=== PATIENT | female | born 1945 | race Caucasian/White ===

== ENCOUNTER → 2016-07-14 | Outpatient (REF) | payer MEDICARE ==
[2016-07-14 11:51] LABS: ALBUMIN 3.8 GM/DL (3.2-5.2); ALBUMIN/GLOBULIN RATIO 0.88 (1.00-1.93); ALKALINE PHOSPHATASE 86 U/L (45-117); ALT/SGPT 33 U/L (12-78); ANION GAP 10 MEQ/L (8-16); AST/SGOT 28 U/L (15-37); BILIRUBIN,TOTAL 0.5 MG/DL (0.2-1.0); BLOOD UREA NITROGEN 16 MG/DL (7-18); CARBON DIOXIDE LEVEL 29 MEQ/L (21-32); CHLORIDE LEVEL 100 MEQ/L (98-107); CREATININE FOR GFR 0.86 MG/DL (0.55-1.02); GLOMERULAR FILTRATION RATE > 60.0 (>45); GLUCOSE, FASTING 130 MG/DL (80-110); POTASSIUM SERUM 4.2 MEQ/L (3.5-5.1); SODIUM LEVEL 139 MEQ/L (136-145); TOTAL PROTEIN 8.1 GM/DL (6.4-8.2)
== END | disposition home or self-care (01) ==
LOC: M SFHCPLAZ 08:43
PROVIDERS: ATTEND Nurse Practitioner Family
DX: E11.9 Type 2 diabetes mellitus without complications (principal); E55.9 Vitamin D deficiency, unspecified

== ENCOUNTER → 2016-10-14 | Outpatient (REF) | payer MEDICARE ==
[2016-10-14 12:15] LABS: ALBUMIN 3.6 GM/DL (3.2-5.2); ALBUMIN/GLOBULIN RATIO 0.95 (1.00-1.93); ALKALINE PHOSPHATASE 84 U/L (45-117); ALT/SGPT 26 U/L (12-78); ANION GAP 10 MEQ/L (8-16); AST/SGOT 21 U/L (15-37); BILIRUBIN,TOTAL 0.4 MG/DL (0.2-1.0); BLOOD UREA NITROGEN 16 MG/DL (7-18); CALCIUM LEVEL 8.7 MG/DL (8.8-10.2); CARBON DIOXIDE LEVEL 26 MEQ/L (21-32); CHLORIDE LEVEL 102 MEQ/L (98-107); CHOLESTEROL LEVEL 190 MG/DL (<200); CREATININE FOR GFR 0.88 MG/DL (0.55-1.02); GLOMERULAR FILTRATION RATE > 60.0 (>39); GLUCOSE, FASTING 150 MG/DL (83-110); POTASSIUM SERUM 4.2 MEQ/L (3.5-5.1); SODIUM LEVEL 138 MEQ/L (136-145); TOTAL PROTEIN 7.4 GM/DL (6.4-8.2); TRIGLYCERIDES LEVEL 253 MG/DL (<150)
== END ==
LOC: M SFHCPLAZ 08:32
PROVIDERS: ATTEND Nurse Practitioner Family
DX: E11.9 Type 2 diabetes mellitus without complications (principal); E78.5 Hyperlipidemia, unspecified; E55.9 Vitamin D deficiency, unspecified

== ENCOUNTER → 2016-11-08 | Outpatient (REF) | payer MEDICARE ==
[2016-11-08 17:52] LABS: BASO % 0.5 % (0.0-1.0); EOS # 0.1 K/mm3 (0.0-0.50); EOS % 1.8 % (0.0-3.0); LARGE UNSTAINED CELL # 0.1 K/mm3 (0.0-0.4); LARGE UNSTAINED CELL % 1.4 % (0.0-4.0); LYMPH # 2.3 K/mm3 (1.5-4.5); LYMPH % 29.6 % (24.0-44.0); MEAN CORPUSCULAR HEMOGLOBIN 29.3 pg (27.0-33.0); MEAN CORPUSCULAR HGB CONC 32.7 g/dl (32.0-36.5); MEAN CORPUSCULAR VOLUME 89.7 fl (80.0-96.0); MONO # 0.5 K/mm3 (0.0-0.8); MONO % 6.7 % (0.0-5.0); NEUTROPHILS # 4.6 K/mm3 (1.8-7.7); NEUTROPHILS % 60.1 % (36.0-66.0); PLATELET COUNT, AUTOMATED 185 k/mm3 (150-450); RED CELL DISTRIBUTION WIDTH 15.6 % (11.5-14.5); WHITE BLOOD COUNT 7.7 K/mm3 (4.0-10.0)
== END ==
LOC: M SFHCPLAZ 14:54
PROVIDERS: ATTEND Nurse Practitioner Family
DX: R06.09 Other forms of dyspnea (principal)

== ENCOUNTER → 2016-12-15 | Outpatient (CLI) | payer MEDICARE ==
--- NOTE | 2016-12-15 16:35 | REP ---
Chest x-ray: Two views: History: Dyspnea. Comparison chest x-ray: 07/26/2012. Findings: The lungs are symmetrically aerated and free of infiltrate. There are scattered granulomatous calcifications bilaterally unchanged. The heart is not enlarged. Pulmonary vasculature is not increased. No bony destructive lesion is seen. Impression: Old granulomatous changes. Otherwise no acute disease. Signed by Jalen Muhammad MD 12/15/2016 05:00 P
== END ==
LOC: M RAD 14:53
PROVIDERS: ATTEND Nurse Practitioner Family
DX: R06.09 Other forms of dyspnea (principal)

== ENCOUNTER → 2016-12-27 | Outpatient (RCR) | payer OTHER | LOC: M PT 12-13 15:00 | PROVIDERS: ATTEND Physician Assistant Surgical | DX: Z51.89 Encounter for other specified aftercare (principal); M75.41 Impingement syndrome of right shoulder ==

== ENCOUNTER → 2016-12-31 | Outpatient (REF) | payer MEDICARE ==
[2016-12-31 18:21] LABS: BASO % 0.3 % (0.0-1.0); EOS # 0.2 K/mm3 (0.0-0.50); LARGE UNSTAINED CELL # 0.2 K/mm3 (0.0-0.4); LARGE UNSTAINED CELL % 1.5 % (0.0-4.0); LYMPH % 16.4 % (24.0-44.0); MEAN CORPUSCULAR HEMOGLOBIN 28.5 pg (27.0-33.0); MEAN CORPUSCULAR HGB CONC 32.4 g/dl (32.0-36.5); MEAN CORPUSCULAR VOLUME 87.9 fl (80.0-96.0); MONO # 0.6 K/mm3 (0.0-0.8); MONO % 4.8 % (0.0-5.0); NEUTROPHILS # 8.5 K/mm3 (1.8-7.7); NEUTROPHILS % 74.9 % (36.0-66.0); PLATELET COUNT, AUTOMATED 301 k/mm3 (150-450); RED CELL DISTRIBUTION WIDTH 15.8 % (11.5-14.5); WHITE BLOOD COUNT 11.4 K/mm3 (4.0-10.0)
[2016-12-31 18:53] LABS: ALBUMIN 3.1 GM/DL (3.2-5.2); ALBUMIN/GLOBULIN RATIO 0.66 (1.00-1.93); ALKALINE PHOSPHATASE 101 U/L (45-117); ALT/SGPT 21 U/L (12-78); ANION GAP 11 MEQ/L (8-16); AST/SGOT 14 U/L (15-37); BILIRUBIN,TOTAL 0.4 MG/DL (0.2-1.0); BLOOD UREA NITROGEN 11 MG/DL (7-18); CALCIUM LEVEL 9.2 MG/DL (8.8-10.2); CARBON DIOXIDE LEVEL 30 MEQ/L (21-32); CHLORIDE LEVEL 98 MEQ/L (98-107); CREATININE FOR GFR 0.71 MG/DL (0.55-1.02); GLOMERULAR FILTRATION RATE > 60.0 (>39); GLUCOSE, FASTING 131 MG/DL (83-110); SODIUM LEVEL 139 MEQ/L (136-145); TOTAL PROTEIN 7.8 GM/DL (6.4-8.2)
== END ==
LOC: M SFHCPLAZ 15:17
PROVIDERS: ATTEND Nurse Practitioner Family
DX: R19.7 Diarrhea, unspecified (principal)

== ENCOUNTER → 2017-01-05 | Outpatient (CLI) | payer MEDICARE ==
--- NOTE | 2017-01-05 12:04 | PFTRPT ---
Tech: Kayla SOLIS RRT Age: 71 Sex: Female Race: Height: 65.00 Inches Weight: 225.00 Lbs BSA: 2.08 Diagnosis: R06.09 PULMONARY FUNCTION REPORT ORDERING PROVIDER: SIN Carlson DATE OF SERVICE: 01/05/17 SPIROMETRY: Pre and post bronchodilator study of excellent technical quality. The forced vital capacity is reduced. The FEV1 is in proportion. The obstructive index is, therefore, normal. FLOW VOLUME LOOP: The expiratory limb of the flow volume loop does suggest flow rate limitation. No significant bronchodilator response is identified. LUNG VOLUMES: The total lung capacity is mildly reduced. The residual volume suggests concomitant significant air trapping. DIFFUSION CAPACITY: The diffusion capacity, although reduced, is appropriate for alveolar volume. HEMOGLOBIN: No hemoglobin is available for correction. AIRWAY MECHANICS: Airways resistance and conductance are normal. IMPRESSION: Mild restrictive ventilatory impairment with concomitant underlying air trapping and small airways dysfunction. No significant bronchodilator response. Decrease in the absolute diffusion capacity. Please correlate clinically. MTDD
== END ==
LOC: M CARPUL 09:57
PROVIDERS: ATTEND Nurse Practitioner Family
DX: R06.09 Other forms of dyspnea (principal)

== ENCOUNTER 2017-01-26 13:36 | Outpatient (RCR) | payer OTHER | END 2017-01-27 | LOC: M PT 13:36 | PROVIDERS: ATTEND Physician Assistant Surgical | DX: Z51.89 Encounter for other specified aftercare (principal); M75.41 Impingement syndrome of right shoulder ==

== ENCOUNTER → 2017-02-10 | Outpatient (REF) | payer MEDICARE ==
[2017-02-10 20:11] LABS: ALBUMIN 3.6 GM/DL (3.2-5.2); ALBUMIN/GLOBULIN RATIO 0.88 (1.00-1.93); ALKALINE PHOSPHATASE 78 U/L (45-117); ALT/SGPT 29 U/L (12-78); ANION GAP 9 MEQ/L (8-16); AST/SGOT 25 U/L (15-37); BILIRUBIN,TOTAL 0.3 MG/DL (0.2-1.0); BLOOD UREA NITROGEN 16 MG/DL (7-18); CALCIUM LEVEL 8.6 MG/DL (8.8-10.2); CARBON DIOXIDE LEVEL 29 MEQ/L (21-32); CHLORIDE LEVEL 103 MEQ/L (98-107); CREATININE FOR GFR 0.89 MG/DL (0.55-1.02); GLOMERULAR FILTRATION RATE > 60.0 (>39); GLUCOSE, FASTING 129 MG/DL (83-110); POTASSIUM SERUM 4.4 MEQ/L (3.5-5.1); SODIUM LEVEL 141 MEQ/L (136-145); TOTAL PROTEIN 7.7 GM/DL (6.4-8.2)
== END ==
LOC: M SFHCPLAZ 14:31
PROVIDERS: ATTEND Nurse Practitioner Family
DX: E11.9 Type 2 diabetes mellitus without complications (principal); E55.9 Vitamin D deficiency, unspecified; E78.4 Other hyperlipidemia

== ENCOUNTER → 2017-04-15 | Outpatient (CLI) | payer MEDICARE ==
--- NOTE | 2017-04-15 14:19 | REPMRS ---
Patient History The patient states she has not had a clinical breast exam in over a year. Patient is postmenopausal and has history of colorectal cancer at age 62. Family history of colorectal cancer in mother, breast cancer in maternal cousin at age 50 or over, and prostate cancer in brother at age 50 or over. Digital Woman Screen Mammo: April 15, 2017 - Exam #: [id number] Bilateral CC and MLO view(s) were taken. Technologist: Arlin Nicholson, Technologist Prior study comparison: February 28, 2015, digital woman screen mammo performed at [facility] [place] [facility]. September 16, 2011, digital woman screen mammo performed at [facility] to [facility]. FINDINGS: The breast tissue is heterogeneously dense. This may lower the sensitivity of mammography. There has been no change in the appearance of the mammogram from the prior studies. There is a moderate amount of residual fibroglandular tissue which is fairly symmetric. There is no interval development of dominant mass, areas of architectural distortion, or clustered microcalcification typical of malignancy. ASSESSMENT: BI-RADS/ACR category 1 mammogram. Negative. Recommendation Routine screening mammogram in 1 year (for women over age 40). This mammogram was interpreted with the aid of an FDA-approved computer-aided dectection system. Electronically Signed By: Isaac Ledezma MD 04/15/17 1239
--- NOTE | 2017-04-19 09:34 | DEXA ---
AP SPINE L1 - L4 0.896 -2.4 -0.7 LT FEMUR TOTAL 0.927 -0.6 0.8 RT FEMUR TOTAL 0.893 -0.9 0.6 TOTAL BODY TOTAL OTHER COMMENTS: There is low bone density of the spine and hips. The decreased density of the spine does not represent a significant change. The decreased density of the left hip does represent a significant change. The decreased density of the right hip does represent a significant change. The density of the spine has decreased 2.9% since the initial exam on 12/2011. The spine density has decreased 1.4% since the most recent exam on 02/2015. The density of the left hip has decreased 4.6% since the initial exam on 12/2011. The density of the left hip has decreased 3.6% since the most recent exam on 2014. The density of the right hip has decreased 3.8% since the initial exam on 2011. The density of the right hip has decreased 3.5% since the most recent exam on . FOLLOW-UP: Recommendation for the next bone density exam: 2 years. MATTHEW
== END ==
LOC: M WHC 08:04
PROVIDERS: ATTEND Nurse Practitioner Family
DX: Z12.31 Encounter for screening mammogram for malignant neoplasm of breast (principal); R92.8 Other abnormal and inconclusive findings on diagnostic imaging of breast; M81.0 Age-related osteoporosis without current pathological fracture; Z78.0 Asymptomatic menopausal state; Z80.0 Family history of malignant neoplasm of digestive organs
CPT/HCPCS: 77080; G0202

== ENCOUNTER → 2017-06-06 | Outpatient (REF) | payer MEDICARE ==
[2017-06-06 13:04] LABS: ALBUMIN 3.7 GM/DL (3.2-5.2); ALBUMIN/GLOBULIN RATIO 0.86 (1.00-1.93); ALKALINE PHOSPHATASE 82 U/L (45-117); ALT/SGPT 30 U/L (12-78); ANION GAP 7 MEQ/L (8-16); AST/SGOT 30 U/L (7-37); BILIRUBIN,TOTAL 0.3 MG/DL (0.2-1.0); BLOOD UREA NITROGEN 20 MG/DL (7-18); CALCIUM LEVEL 8.9 MG/DL (8.8-10.2); CARBON DIOXIDE LEVEL 29 MEQ/L (21-32); CHLORIDE LEVEL 101 MEQ/L (98-107); CREATININE FOR GFR 0.87 MG/DL (0.55-1.02); GLOMERULAR FILTRATION RATE > 60.0 (>39); GLUCOSE, FASTING 143 MG/DL (83-110); POTASSIUM SERUM 4.2 MEQ/L (3.5-5.1); SODIUM LEVEL 137 MEQ/L (136-145)
[2017-06-06 13:54] LABS: ESTIMATED AVERAGE GLUCOSE 166 MG/DL (60-110); HEMOGLOBIN A1c 7.4 %
== END ==
LOC: M SFHCPLAZ 08:26
DX: E11.9 Type 2 diabetes mellitus without complications (principal)
CPT/HCPCS: 80053

== ENCOUNTER → 2017-06-13 | Outpatient (REF) | payer MEDICARE ==
[2017-06-13 15:50] LABS: APPEARANCE, URINE HAZY (CLEAR); BACTERIA, URINE AUTO 1+ (NEGATIVE); BILIRUBIN, URINE AUTO NEGATIVE (NEGATIVE); BLOOD, URINE BLOOD NEGATIVE (NEGATIVE); COLOR, URINE YELLOW (YELLOW); GLUCOSE, URINE (UA) AUTO NEGATIVE (NEGATIVE); KETONE, URINE AUTO NEGATIVE (NEGATIVE); LEUKOCYTE ESTERASE, URINE AUTO 1+ (NEGATIVE); NITRITE, URINE AUTO NEGATIVE (NEGATIVE); PROTEIN, URINE AUTO NEGATIVE (NEGATIVE); RBC, URINE AUTO 3 /HPF (0-3); SQUAMOUS EPITHELIAL CELL UR AU 3 /HPF (0-6); UROBILINOGEN, URINE AUTO 0.2 mg/dL (0.0-2.0); WBC, URINE AUTO 8 /HPF (0-3)
== END ==
LOC: M SFHCPLAZ 11:58
DX: R35.0 Frequency of micturition (principal)
CPT/HCPCS: 81001

== ENCOUNTER → 2017-09-26 | Outpatient (REF) | payer MEDICARE ==
[2017-09-26 12:23] LABS: ESTIMATED AVERAGE GLUCOSE 169 MG/DL (60-110); HEMOGLOBIN A1c 7.5 %
[2017-09-26 12:47] LABS: TOTAL 25(OH) VITAMIN D 28.2 NG/ML (30.0-100.0)
[2017-09-26 12:49] LABS: ALBUMIN 3.3 GM/DL (3.2-5.2); ALBUMIN/GLOBULIN RATIO 0.75 (1.00-1.93); ALKALINE PHOSPHATASE 85 U/L (45-117); ALT/SGPT 31 U/L (12-78); ANION GAP 7 MEQ/L (8-16); AST/SGOT 32 U/L (7-37); BILIRUBIN,TOTAL 0.3 MG/DL (0.2-1.0); BLOOD UREA NITROGEN 14 MG/DL (7-18); CALCIUM LEVEL 9.1 MG/DL (8.8-10.2); CARBON DIOXIDE LEVEL 28 MEQ/L (21-32); CHLORIDE LEVEL 106 MEQ/L (98-107); CREATININE FOR GFR 0.86 MG/DL (0.55-1.30); GLOMERULAR FILTRATION RATE > 60.0 (>39); GLUCOSE, FASTING 135 MG/DL (70-100); POTASSIUM SERUM 4.3 MEQ/L (3.5-5.1); SODIUM LEVEL 141 MEQ/L (136-145); TOTAL PROTEIN 7.7 GM/DL (6.4-8.2)
== END ==
LOC: M SFHCPLAZ 10:29
DX: E11.9 Type 2 diabetes mellitus without complications (principal); E55.9 Vitamin D deficiency, unspecified
CPT/HCPCS: 80053

== ENCOUNTER → 2018-01-06 | Outpatient (REF) | payer MEDICARE ==
[2018-01-06 11:28] LABS: ALBUMIN 3.7 GM/DL (3.2-5.2); ALBUMIN/GLOBULIN RATIO 0.82 (1.00-1.93); ALKALINE PHOSPHATASE 80 U/L (45-117); ALT/SGPT 65 U/L (12-78); ANION GAP 8 MEQ/L (8-16); AST/SGOT 61 U/L (7-37); BILIRUBIN,TOTAL 0.4 MG/DL (0.2-1.0); BLOOD UREA NITROGEN 16 MG/DL (7-18); CARBON DIOXIDE LEVEL 30 MEQ/L (21-32); CHLORIDE LEVEL 101 MEQ/L (98-107); CHOLESTEROL LEVEL 216 MG/DL (<200); CHOLESTEROL RISK RATIO 4.075 (<5); CREATININE FOR GFR 0.76 MG/DL (0.55-1.30); GLOMERULAR FILTRATION RATE > 60.0 (>39); GLUCOSE, FASTING 123 MG/DL (70-100); HDL CHOLESTEROL 53 MG/DL (>40); LDL CHOLESTEROL 139.6 MG/DL (<100); NON-HDL-C 163 MG/DL; POTASSIUM SERUM 4.3 MEQ/L (3.5-5.1); SODIUM LEVEL 139 MEQ/L (136-145); TOTAL PROTEIN 8.2 GM/DL (6.4-8.2); TRIGLYCERIDES LEVEL 117 MG/DL (<150)
[2018-01-06 11:30] LABS: TOTAL 25(OH) VITAMIN D 27.4 NG/ML (30.0-100.0)
[2018-01-06 12:19] LABS: ESTIMATED AVERAGE GLUCOSE 177 MG/DL (60-110); HEMOGLOBIN A1c 7.8 %
== END ==
LOC: M SFHCPLAZ 09:24
DX: E78.5 Hyperlipidemia, unspecified (principal); E11.9 Type 2 diabetes mellitus without complications; E55.9 Vitamin D deficiency, unspecified; Z68.36 Body mass index [BMI] 36.0-36.9, adult
CPT/HCPCS: 80053

== ENCOUNTER → 2018-01-13 | Outpatient (REF) | payer MEDICARE ==
[2018-01-13 16:05] LABS: MALB URINE SIEMENS 8.6 MG/L; MAU/CREAT RATIO 7.6 MCG/MG (0.0-30.0)
== END ==
LOC: M SFHCPLAZ 15:13
DX: E11.9 Type 2 diabetes mellitus without complications (principal)
CPT/HCPCS: 82043

== ENCOUNTER → 2018-05-02 | Outpatient (REF) | payer MEDICARE ==
[2018-05-02 11:19] LABS: ALBUMIN 3.6 GM/DL (3.2-5.2); ALBUMIN/GLOBULIN RATIO 0.84 (1.00-1.93); ALKALINE PHOSPHATASE 86 U/L (45-117); ALT/SGPT 68 U/L (12-78); ANION GAP 7 MEQ/L (8-16); AST/SGOT 63 U/L (7-37); BILIRUBIN,TOTAL 0.4 MG/DL (0.2-1.0); BLOOD UREA NITROGEN 18 MG/DL (7-18); CALCIUM LEVEL 8.7 MG/DL (8.8-10.2); CARBON DIOXIDE LEVEL 31 MEQ/L (21-32); CHLORIDE LEVEL 102 MEQ/L (98-107); CREATININE FOR GFR 0.77 MG/DL (0.55-1.30); GLOMERULAR FILTRATION RATE > 60.0 (>39); GLUCOSE, FASTING 141 MG/DL (70-100); POTASSIUM SERUM 4.2 MEQ/L (3.5-5.1); SODIUM LEVEL 140 MEQ/L (136-145); TOTAL PROTEIN 7.9 GM/DL (6.4-8.2)
[2018-05-02 11:25] LABS: TOTAL 25(OH) VITAMIN D 36.1 NG/ML (30.0-100.0)
[2018-05-02 11:57] LABS: ESTIMATED AVERAGE GLUCOSE 203 MG/DL (60-110); HEMOGLOBIN A1c 8.7 %
== END ==
LOC: M SFHCPLAZ 09:05
DX: E11.9 Type 2 diabetes mellitus without complications (principal); E55.9 Vitamin D deficiency, unspecified
CPT/HCPCS: 80053

== ENCOUNTER → 2018-08-30 | Outpatient (CLI) | payer MEDICARE ==
--- NOTE | 2018-08-30 13:36 | REP ---
LOW-DOSE NONCONTRAST CHEST CT: HISTORY: Lung cancer screening. Tobacco use. Comparison screening CT study March 31, 2017. There is a comparison CT study also available from February 02, 2008. CT FINDINGS: There is bilateral calcific pleural plaquing consistent with previous asbestos exposure again noted. This is unchanged. There is no evidence of pleural effusion or diffuse interstitial fibrosis change. There are minimal pleuroparenchymal fibrotic changes in the lung bases bilaterally. No pulmonary nodule or mass lesion is observed. There is calcification in a right paratracheal lymph node and in the precarinal lymph nodes again noted unchanged. IMPRESSION: Lung RADS category 2 benign findings. Annual screening evaluation suggested. Electronically Signed by Jalen Muhammad MD 08/30/2018 02:55 P
== END ==
LOC: M RAD 10:58
PROVIDERS: ATTEND Nurse Practitioner Family
DX: Z87.891 Personal history of nicotine dependence (principal)

== ENCOUNTER → 2018-10-18 | Outpatient (REF) | payer MEDICARE ==
[2018-10-18 12:27] LABS: HEMATOCRIT 36.5 % (36.0-47.0); HEMOGLOBIN 11.2 g/dl (12.0-15.5); MEAN CORPUSCULAR HEMOGLOBIN 26.5 pg (27.0-33.0); MEAN CORPUSCULAR HGB CONC 30.7 g/dl (32.0-36.5); MEAN CORPUSCULAR VOLUME 86.5 fl (80.0-96.0); PLATELET COUNT, AUTOMATED 136 10^3/uL (150-450); RED BLOOD COUNT 4.22 10^6/uL (4.00-5.40); WHITE BLOOD COUNT 5.1 10^3/uL (4.0-10.0)
[2018-10-18 12:45] LABS: ALBUMIN 3.7 GM/DL (3.2-5.2); ALT/SGPT 58 U/L (12-78); BILIRUBIN,TOTAL 0.5 MG/DL (0.2-1.0); BLOOD UREA NITROGEN 13 MG/DL (7-18); CALCIUM LEVEL 9.4 MG/DL (8.8-10.2); CARBON DIOXIDE LEVEL 26 MEQ/L (21-32); CHLORIDE LEVEL 102 MEQ/L (98-107); CHOLESTEROL LEVEL 161 MG/DL (<200); CHOLESTEROL RISK RATIO 4.351 (<5); CREATININE FOR GFR 0.85 MG/DL (0.55-1.30); GLOMERULAR FILTRATION RATE > 60.0 (>39); GLUCOSE, FASTING 174 MG/DL (70-100); HDL CHOLESTEROL 37 MG/DL (>40); LDL CHOLESTEROL 86 MG/DL (<100); NON-HDL-C 124 MG/DL; POTASSIUM SERUM 4.3 MEQ/L (3.5-5.1); SODIUM LEVEL 137 MEQ/L (136-145); TOTAL PROTEIN 7.8 GM/DL (6.4-8.2); TRIGLYCERIDES LEVEL 188 MG/DL (<150)
[2018-10-18 14:16] LABS: HEMOGLOBIN A1c 7.8 %
== END ==
LOC: M SFHCPLAZ 08:45
PROVIDERS: ATTEND Nurse Practitioner Family
DX: Z85.048 Personal history of other malignant neoplasm of rectum, rectosigmoid junction, and anus (principal); R06.02 Shortness of breath; E11.9 Type 2 diabetes mellitus without complications; E78.5 Hyperlipidemia, unspecified

== ENCOUNTER 2018-10-30 06:41 | Day surgery (SDC) | payer MEDICARE ==
[~2018-10-30] VITALS: Ht 167.6 cm; Wt 102.1 kg
[~2018-10-30 06:41] MED LIST: ANOR1AER IN; ASPI81TA85 PO; ATOR40TA75; METF500T13; NS 1,000 ML IV ONE; SERT-155
[2018-10-30] MEDS ORDERED: PROPOFOL 200 MG/20 ML VIAL As Ordered ONE (07:04)
[2018-10-30] MEDS ORDERED: LIDOCAINE 2% INJ 100 MG/5 ML SDV (FOR ANES.) As Ordered ONE (07:04)
[2018-10-30] MEDS ORDERED: fentaNYL 100 MCG/2 ML INJECTION (J3010) As Ordered ONE (07:08)
--- NOTE | 2018-10-30 07:48 | ROOR ---
Patient Name: Anne Farooq Procedure Date: 10/30/2018 7:32 AM Date of : 1945 Age: 73 Room: [facility] Gender: Female Note Status: Finalized Procedure: Upper Endoscopy + Biopsies Indications: Heartburn, Exclusion of Saldana's esophagus Providers: Ubaldo Camilo MD Referring MD: Aviva Tineo NP Requesting Provider: Medicines: Monitored Anesthesia Care Complications: No immediate complications. Procedure: Pre-Anesthesia Assessment: - The heart rate, respiratory rate, oxygen saturations, blood pressure, adequacy of pulmonary ventilation, and response to care were monitored throughout the procedure. The Endoscope was introduced through the mouth, and advanced to the second part of duodenum. The upper GI endoscopy was accomplished without difficulty. The patient tolerated the procedure well. Findings: The Z-line was irregular and was found 45 cm from the incisors. Multiple biopsies were obtained with cold forceps for evaluation to rule out Saldana's Esophagus randomly at the gastroesophageal junction. A small hiatal hernia was present. No other significant abnormalities were identified in a careful examination of the stomach. The exam of the duodenum was otherwise normal. Impression: - Z-line irregular, 45 cm from the incisors. - Small hiatal hernia. - Multiple biopsies were obtained at the gastroesophageal junction. - The examination was otherwise normal. Recommendation: - Patient has a contact number available for emergencies. The signs and symptoms of potential delayed complications were discussed with the patient. Return to normal activities tomorrow. Written discharge instructions were provided to the patient. - High fiber diet. - Discharge patient to home. - Follow an antireflux regimen. - Continue present medications. - Await pathology results. - Telephone GI clinic for pathology results in 1 week. - The findings and recommendations were discussed with the patient's family. Ubaldo Camilo MD Ubaldo Camilo MD 10/30/2018 7:48:34 AM Electronically signed by Ubaldo Camilo MD Number of Addenda: 0 Note Initiated On: 10/30/2018 7:32 AM Estimated Blood Loss: Estimated blood loss: none.
--- NOTE | 2018-10-30 08:14 | ROOR ---
Patient Name: Anne Farooq Procedure Date: 10/30/2018 7:33 AM Date of : 1945 Age: 73 Room: [facility] Gender: Female Note Status: Finalized Procedure: Total Colonoscopy to Cecum + Cold Snare Polypectomy + Hemoclips Indications: High risk colon cancer surveillance: Personal history of colon cancer Providers: Ubaldo Camilo MD Referring MD: Aviva Tineo NP Requesting Provider: Medicines: Monitored Anesthesia Care Complications: No immediate complications. Procedure: Pre-Anesthesia Assessment: - The heart rate, respiratory rate, oxygen saturations, blood pressure, adequacy of pulmonary ventilation, and response to care were monitored throughout the procedure. The Colonoscope was introduced through the anus and advanced to the cecum, identified by appendiceal orifice and ileocecal valve. The colonoscopy was performed without difficulty. The patient tolerated the procedure well. The quality of the bowel preparation was excellent. Findings: The perianal and digital rectal examinations were normal. Non-bleeding internal hemorrhoids were found during retroflexion. The hemorrhoids were medium-sized and Grade I (internal hemorrhoids that do not prolapse). The mucosa vascular pattern in the rectum was diffusely increased. Multiple sessile polyps were found in the distal transverse colon. The polyps were small in size. These polyps were removed with a cold snare. Resection and retrieval were complete. To prevent bleeding after the polypectomy, three hemostatic clips were successfully placed (MR conditional). There was no bleeding at the end of the procedure. The exam was otherwise without abnormality on direct and retroflexion views. Impression: - Non-bleeding internal hemorrhoids. - Increased mucosa vascular pattern in the rectum. - Multiple small polyps in the distal transverse colon, removed with a cold snare. Resected and retrieved. Clips (MR conditional) were placed. - The examination was otherwise normal on direct and retroflexion views. - The exam was otherwise normal to the cecum. Recommendation: - Patient has a contact number available for emergencies. The signs and symptoms of potential delayed complications were discussed with the patient. Return to normal activities tomorrow. Written discharge instructions were provided to the patient. - High fiber diet. - Discharge patient to home. - Continue present medications. - Await pathology results. - Telephone GI clinic for pathology results in 1 week. - Repeat colonoscopy for surveillance based on pathology results. - Return to referring physician. - Check Portal Online for Path Results.([email or web address]) - The findings and recommendations were discussed with the patient's family. Ubaldo Camilo MD Ubaldo Camilo MD 10/30/2018 8:14:09 AM Electronically signed by Ubaldo Camilo MD Number of Addenda: 0 Note Initiated On: 10/30/2018 7:33 AM Estimated Blood Loss: Estimated blood loss: none.
[2018-10-30 08:40] VITALS: BP 138/62
== END 2018-10-30 08:51 | disposition home or self-care (01) ==
LOC: M OPP 06:41
PROVIDERS: ATTEND Internal Medicine Gastroenterology
DX: D12.3 Benign neoplasm of transverse colon (principal); K64.0 First degree hemorrhoids; K22.8 Other specified diseases of esophagus; K44.9 Diaphragmatic hernia without obstruction or gangrene; R12 Heartburn; Z86.010 Personal history of colon polyps
CPT/HCPCS: 43239; 45385; 88305; J3010

== ENCOUNTER → 2019-01-16 | Outpatient (CLI) | payer MEDICARE ==
[~2019-01-16] MED LIST changes: -NS 1,000 ML IV ONE
--- NOTE | 2019-01-16 12:03 | REPMRS ---
Patient History The patient states she has not had a clinical breast exam in over a year. Patient has history of colorectal cancer at age 62 and had previous chemotherapy at age 62. Family history of prostate cancer at age 50 or over in brother, colorectal cancer in mother. No Hormone Replacement Therapy 3D TOMOSYNTHESIS WAS PERFORMED. The [facility] lifetime risk for breast cancer is 3.7%. Digital Woman Screen Mammo: January 16, 2019 - Exam #: [id number] Bilateral CC and MLO view(s) were taken. Technologist: Magi Astorga, Technologist Prior study comparison: April 15, 2017, digital woman screen mammo performed at [facility]. February 28, 2015, digital woman screen mammo performed at [facility] [employer] [facility]. FINDINGS: The breast tissue is heterogeneously dense. This may lower the sensitivity of mammography. There has been no change in the appearance of the mammogram from the prior studies. There is a moderate amount of residual fibroglandular tissue which is fairly symmetric. There is no interval development of dominant mass, areas of architectural distortion, or clustered microcalcification typical of malignancy. Assessment: BI-RADS/ACR category 1 mammogram. Negative Mammogram. Recommendation Routine screening mammogram in 1 year (for women over age 40). This mammogram was interpreted with the aid of an FDA-approved computer-aided dectection system. Electronically Signed By: Isaac Ledezma MD 01/16/19 1266
== END ==
LOC: M WHC 10:02
PROVIDERS: ATTEND Nurse Practitioner Family
DX: Z12.31 Encounter for screening mammogram for malignant neoplasm of breast (principal); Z85.038 Personal history of other malignant neoplasm of large intestine; Z92.21 Personal history of antineoplastic chemotherapy; Z80.0 Family history of malignant neoplasm of digestive organs

== ENCOUNTER → 2019-01-23 | Outpatient (REF) | payer MEDICARE ==
[~2019-01-23] MED LIST changes: +ALL10TAB29 PO; -ANOR1AER IN; +ANOR1AER INH; -ATOR40TA75; +ATOR40TA75 PO; +B-12100010 PO; +LOPE1CAP5 PO; +METF10004 PO; -METF500T13; +METF500T13 PO; +NYST1POW9 TOP; +OMEP-221 PO; +PRED50TA PO; -SERT-155; +SERT50TA29; +TYLE650T35 PO; +VOLT1GEL15 TOP
[2019-01-23 10:50] LABS: ALBUMIN 3.5 GM/DL (3.2-5.2); ALT/SGPT 37 U/L (12-78); BILIRUBIN,TOTAL 0.5 MG/DL (0.2-1.0); BLOOD UREA NITROGEN 10 MG/DL (7-18); CALCIUM LEVEL 9.1 MG/DL (8.8-10.2); CARBON DIOXIDE LEVEL 26 MEQ/L (21-32); CHLORIDE LEVEL 105 MEQ/L (98-107); CREATININE FOR GFR 0.82 MG/DL (0.55-1.30); GLOMERULAR FILTRATION RATE > 60.0 (>39); GLUCOSE, FASTING 146 MG/DL (70-100); POTASSIUM SERUM 4.4 MEQ/L (3.5-5.1); SODIUM LEVEL 139 MEQ/L (136-145); TOTAL 25(OH) VITAMIN D 35.9 NG/ML (30.0-100.0); TOTAL PROTEIN 8.1 GM/DL (6.4-8.2)
[2019-01-23 14:15] LABS: HEMOGLOBIN A1c 7.9 %
[2019-01-23 15:22] LABS: CREATININE, URINE 61.4 MG/DL; MALB URINE SIEMENS 11.3 MG/L; MAU/CREAT RATIO 18.4 MCG/MG (0.0-30.0)
== END ==
LOC: M SFHCPLAZ 09:15
PROVIDERS: ATTEND Nurse Practitioner Family
DX: E11.9 Type 2 diabetes mellitus without complications (principal); E78.5 Hyperlipidemia, unspecified; E55.9 Vitamin D deficiency, unspecified

== ENCOUNTER 2019-03-23 15:56 | Inpatient (IN) | payer MEDICARE ==
[2019-03-22 23:59] VITALS: BP 113/63
[~2019-03-23] VITALS: Ht 167.6 cm; Wt 110.0 kg
[~2019-03-23 15:56] MED LIST changes: -ALL10TAB29 PO; -B-12100010 PO; -LOPE1CAP5 PO; -METF10004 PO; -NYST1POW9 TOP; -OMEP-221 PO; -PRED50TA PO; -TYLE650T35 PO; -VOLT1GEL15 TOP
[2019-03-23 18:48] LABS: BASO % 0.2 % (0.0-1.0); EOS % 0.1 % (0.0-3.0); HEMATOCRIT 29.4 % (36.0-47.0); LYMPH # 0.8 10^3/uL (1.5-5.0); LYMPH % 7.9 % (24.0-44.0); MEAN CORPUSCULAR HEMOGLOBIN 25.3 pg (27.0-33.0); MEAN CORPUSCULAR HGB CONC 30.6 g/dl (32.0-36.5); MEAN CORPUSCULAR VOLUME 82.6 fl (80.0-96.0); MONO # 0.6 10^3/uL (0.0-0.8); MONO % 6.1 % (0.0-5.0); NEUTROPHILS # 8.2 10^3/uL (1.5-8.5); NEUTROPHILS % 85.4 % (36.0-66.0); PLATELET COUNT, AUTOMATED 105 10^3/uL (150-450); RED BLOOD COUNT 3.56 10^6/uL (4.00-5.40); WHITE BLOOD COUNT 9.6 10^3/uL (4.0-10.0)
[2019-03-23 19:29] LABS: ACETAMINOPHEN LEVEL < 2.0 UG/ML (10.0-30.0); ALBUMIN 3.2 GM/DL (3.2-5.2); ALT/SGPT 32 U/L (12-78); BILIRUBIN,DIRECT 0.2 MG/DL (0.0-0.2); BILIRUBIN,TOTAL 0.6 MG/DL (0.2-1.0); BLOOD UREA NITROGEN 14 MG/DL (7-18); CALCIUM LEVEL 8.9 MG/DL (8.8-10.2); CARBON DIOXIDE LEVEL 27 MEQ/L (21-32); CHLORIDE LEVEL 102 MEQ/L (98-107); CK-MB VALUE MASS < 1.0 NG/ML (<3.6); CPK CREATINE PHOSPHOKINASE 69 U/L (26-192); ETHYL ALCOHOL (ETHANOL) < 0.003 % (0.000-0.010); GLUCOSE, FASTING 141 MG/DL (70-100); MB/CK RELATIVE INDEX 1.45 (< OR =4); POTASSIUM SERUM 4.1 MEQ/L (3.5-5.1); SALICYLATE LEVEL < 1.7 MG/DL (5.0-30.0); SODIUM LEVEL 137 MEQ/L (136-145); TOTAL PROTEIN 8.3 GM/DL (6.4-8.2); TROPONIN I < 0.02 NG/ML (< 0.10)
[2019-03-23] MEDS ORDERED: B-12100010 PO (19:40)
[2019-03-23] MEDS ORDERED: OMEP-221 PO (19:40)
[2019-03-23] MEDS ORDERED: NYST1POW9 TOP (19:40)
[2019-03-23] MEDS ORDERED: LOPE1CAP5 PO (19:40)
[2019-03-23] MEDS ORDERED: TYLE650T35 PO (19:40)
[2019-03-23] MEDS ORDERED: VOLT1GEL15 TOP (19:40)
[2019-03-23] MEDS ORDERED: ALL10TAB29 PO (19:40)
[2019-03-23 20:35] LABS: AMPHETAMINES LEVEL URINE NEGATIVE (NEGATIVE); BARBITURATES URINE NEGATIVE (NEGATIVE); BENZODIAZEPINES URINE NEGATIVE (NEGATIVE); CANNABINOIDS URINE NEGATIVE (NEGATIVE); COCAINE METABOLITE URINE NEGATIVE (NEGATIVE); METHADONE URINE NEGATIVE (NEGATIVE); OPIATES URINE NEGATIVE (NEGATIVE); PHENCYCLIDINE URINE NEGATIVE (NEGATIVE)
[2019-03-23] MEDS ORDERED: ACETAMINOPHEN TAB 650MG DOSE (2X325MG) PO ONE (20:45)
[2019-03-23] MEDS: HumaLOG INSULIN (NovoLOG) PER UNIT SC SCH (21:00)
[2019-03-23] MEDS ORDERED: NS 1,000 ML IV ONE (21:15)
--- NOTE | 2019-03-23 21:34 | ECGEPIP ---
[facility] - ED Test Date: 2019-03-23 Pat Name: YARA TYLER Department: Room: - Gender: Female Manager Community Development: ARLEY : 1945 Requested By: Ky Jackson Order Number: [id number] Reading MD: Preethi Bradford Measurements Intervals [place] Rate: 92 P: 64 SC: 162 QRS: -16 QRSD: 88 T: 64 QT: 378 QTc: 468 Interpretive Statements SINUS RHYTHM POSSIBLE RIGHT VENTRICULAR CONDUCTION DELAY NONSPECIFIC T-WAVE ABNORMALITY POSSIBLE PRIOR INFERIOR INFARCT NO PRIOR Electronically Signed on 03-23-2019 21:34:12 EDT by Preethi Bradford
[2019-03-23] MEDS ORDERED: AZITHROMYCIN 250 MG TAB PO ONE (22:30)
[2019-03-23] MEDS ORDERED: cefTRIAXone SOD 2 GM in D5W MINI-BAG PLUS 50 ML IV ONE (22:30)
[2019-03-23] MEDS ORDERED: IPRATROPIUM 0.5MG/ALBUTEROL 2.5MG INH SOL UD 3ML (DUONEB)(J7620) NEB ONE (22:45)
--- NOTE | 2019-03-23 22:52 | HPEPDOC ---
[facility] Medical History & Physical Date of Admission Mar 23, 2019 Date of Service: Mar 23, 2019 Primary Care Physician: A Other Provider Aviva VOGT Attending Physician: RAMON GUADALUPE MD History and Physical TIME OF SERVICE: 11:35 PM CHIEF COMPLAINT: Confusion HISTORY OF PRESENT ILLNESS: This is a 73-year-old female who was brought to the hospital her daughter who found her earlier on in the afternoon after she had "passed out". When the daughter tried to wake her up, the patient was not answering questions appropriately and couldn't get up without assistance. The patient reports feeling tired for 3 weeks and has been having difficulties walking, but has not fallen. She has also c/o of a poor appetite, fevers, chills, 4/ 10 in severity right lower quadrant and left lower quadrant abdominal pain, bloating, and a dry cough. She denies having nausea, denies having vomiting, denies having diarrhea. Per discussion with the ED attending her confusion improved after she was given ceftriaxone and azithromycin. REVIEW OF SYSTEMS: 12 point review of systems negative except as listed in HPI PAST MEDICAL/ SURGICAL HISTORY: Unsteady gait / Osteoarthritis COPD/Mild restrictive ventilatory impairment with concomitant underlying air trapping and small airways dysfunction Chronic hypertension. 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 DJD/cervical disc herniation Insomnia. Dyslipidemia Status post hemorrhoidectomy. Status post hysterectomy SOCIAL HISTORY: Former smoker., quit over 10 years ago Consumes alcohol occasionally FAMILY HISTORY: Nop-hkgzdus-rcxcwuyce diabetes mellitus Kidney disease. Hypertension. Possibly cancer. Skin cancer Colon cancer. Breast cancer ALLERGIES: Please see below. HOME MEDICATIONS: Please see below. PHYSICAL EXAMINATION: VITAL SIGNS: Please see below. GENERAL APPEARANCE: well-nourished, well-developed, not in apparent distress HEENT: . Normocephalic, atraumatic, mucous membranes moist and pink, lips acyanotic, CARDIOVASCULAR: , regular rate and rhythm. No murmurs, rubs or gallops LUNGS: patient is coughing occasionally, there is scattered expiratory rhonchi ABDOMEN: the abdomen is soft and tender with palpation of the left mid and left lower quadrant MUSCULOSKELETAL: range of motion is intact in all 4 extremities INTEGUMENT: has generalized pallor, and her skin does not appear flushed NEUROLOGICAL: cranial nerves II to 12 are grossly intact. Speech is not dysarthric PSYCHIATRIC: alert and oriented to person, but not place and not time. She was able to follow simple commands LABORATORY DATA: See below. IMAGING: chest x-ray shows lesion at the right but the final read is pending MICROBIOLOGY: Please see below. ASSESSMENT: Ms. Farooq is a 73-year-old female w a PMH of NIDDM, restrictive airway disease, chronic HTN chronic grade 1 diastolic dysfunction, osteoarthritis, and unsteady gait who will be admitted for management of confusion, likely due to an infectious process, (pneumonia and or UTI ). PLAN: 1. Possible Sepsis. Source of infection may be CAP and or UTI. The abdominal pain may be due to pneumonia and/or or UTI SIRS criteria include a temperature of 102.3 & respiratory rate of 24 UA is positive for leukocyte esterase and WBCs. The chest x-ray showed a possible lesion at the right Qsofa score = 2 = high risk CURB 65 score to determine if pt should be admitted = 2 points = Moderate risk group: 6.8% 30-day mortality. Consider inpatient treatment or outpatient with close followup. Plan: admit to medical floor / continuous pulse ox & supplemental O2/ f/u lactic acid,, urine culture, sputum & blood cx / abx / IVF / Acetaminophen PRN for fever / continue with ceftriaxone and azithromycin 2. Confusion. Likely due to infection After receiving medications in ED, the patient improved but according to the daughter is not back to her baseline. She could not name the date or the place Plan: Frequent neuro checks / follow-up VBG 3. Mild COPD exacerbation Plan: Follow-up influenza, VBG, sputum cultures / supplemental oxygen/continuous pulse oximetry / aspiration precautions / Dunebs Q6H, Albuterol Q1HP, will give 1 dose of Solu-Medrol now and switch to oral Prednisone + PPI tomorrow, Tessalon Pearls, antibiotics 4. Normocytic anemia Hemoglobin is 9, which is lower than her baseline of 11.2. Plan: Follow-up reticulocyte count, iron panel, stool occult, and serial hemoglobin 5. NIDDM A1c 7.9% in December Plan: diabetic diet / f/u accuchecks / hypoglycemia protocol / sliding scale insulin / hold oral anti-glycemics 6. OA/unsteady gait According to the the patient. She's been having difficulty walking for the last 3 weeks. Plan: PT eval for early mobilization and to determine if she is a candidate for inpatient versus home physical therapy 7.dyslipidemia Plan: Continue home meds 8. Obesity BMI 36.4 Complicates care Patients with a BMI greater than 35, and diabetes are candidates for bariatric surgery Plan: can f/u w PCP for STOP BANG questionnaire [employer]gger [employer] consult & referral for Bariatric surgery / recommend cardiovascular exercise for 40 min 4-5 days a week DVT prophylaxis with Lovenox Disposition pending clinical course/will place a social work consult for assistance with discharge planning (home health aide, in pt vs home PT) Vital Signs Vital Signs Date Time Temp Pulse Resp B/P (MAP) Pulse Ox O2 Delivery O2 Flow Rate FiO2 03/23/19 22:15 85 16 102/56 (71) 94 Room Air 03/23/19 22:08 99.3 Laboratory Data Labs 24H Laboratory Tests 2 03/23/19 18:39: Immature Granulocyte % (Auto) 0.3, Neutrophils (%) (Auto) 85.4H, Lymphocytes (%) (Auto) 7.9L, Monocytes (%) (Auto) 6.1H, Eosinophils (%) (Auto) 0.1, Basophils (%) (Auto) 0.2, Neutrophils # (Auto) 8.2, Lymphocytes # (Auto) 0.8L, Monocytes # (Auto) 0.6, Eosinophils # (Auto) 0.0, Basophils # (Auto) 0.0, Nucleated Red Blood Cells % (auto) 0.0, Anion Gap 8, Glomerular Filtration Rate 58.0, Calcium Level 8.9, Total Bilirubin 0.6, Direct Bilirubin 0.2, Aspartate Amino Transf (AST/SGOT) 43H, Alanine Aminotransferase (ALT/SGPT) 32, Alkaline Phosphatase 83, Ammonia 30, Total Creatine Kinase 69, Creatine Kinase MB < 1.0, Creatine Kinase MB Relative Index 1.45, Troponin I < 0.02, Total Protein 8.3H, Albumin 3.2, Albumin/Globulin Ratio 0.63L, Thyroid Stimulating Hormone (TSH) 1.230, Salicylates Level < 1.7L, Acetaminophen Level < 2.0L, Ethyl Alcohol Level < 0.003 03/23/19 19:45: Urine Color YELLOW, Urine Appearance HAZY, Urine pH 7.0, Urine Specific [place] 1.014, Urine Protein 1+H, Urine Glucose (UA) NEGATIVE, Urine Ketones NEGATIVE, Urine Blood NEGATIVE, Urine Nitrite NEGATIVE, Urine Bilirubin NEGATIVE, Urine Urobilinogen 0.2, Urine Leukocyte Esterase TRACEH, Urine WBC (Auto) 30H, Urine RBC (Auto) 3, Urine Hyaline Casts (Auto) 0, Urine Bacteria (Auto) NEGATIVE, Urine Squamous Epithelial Cells 10, Urine Sperm (Auto) , Urine Opiates Screen NEGATIVE, Urine Methadone Screen NEGATIVE, Urine Barbiturates Screen NEGATIVE, Urine Phencyclidine Screen NEGATIVE, Urine Amphetamines Screen NEGATIVE, Urine Benzodiazepines Screen NEGATIVE, Urine Cocaine Metabolite Screen NEGATIVE, Urine Cannabinoids Screen NEGATIVE CBC/BMP Laboratory Tests 03/23/19 18:39 Microbiology Microbiology 03/23/19 Respiratory Virus Panel (PCR) (MOISES), Received Pending 03/23/19 Urine Culture, Received Pending 03/23/19 Blood Culture, Received Pending 03/23/19 Blood Culture, Received Pending Home Medications Scheduled Aspirin (Aspir 81) 81 Mg Tablet.dr, 81 MG PO DAILY Atorvastatin Calcium (Atorvastatin Calcium) 40 Mg Tablet, 40 MG PO QHS Cyanocobalamin (Vitamin B-12) (Vitamin B-12) 1,000 Mcg Capsule, 1,000 MCG PO DAILY Metformin HCl (Metformin HCl) 500 Mg Tablet, 500 MG PO BID Omeprazole (Omeprazole) 40 Mg Capsule.dr, 40 MG PO DAILY Umeclidinium Brm/Vilanterol Tr (Anoro Ellipta 62.5-25 Mcg INH) 1 Each Blst.w.dev, 1 PUFF INH DAILY Scheduled PRN Acetaminophen (Tylenol Arthritis) 650 Mg Tablet.er, 650 MG PO Q8H PRN for PAIN Cetirizine HCl (Cetirizine HCl) 10 Mg Tablet, 10 MG PO DAILY PRN for ALLERGY SYMPTOMS Diclofenac Sodium (Voltaren) 100 Gm Gel..gram., 1 APLCT TOP DAILY PRN for PAIN APPLIES TO FEET Loperamide HCl (Loperamide) 2 Mg Capsule, 2 MG PO Q6H PRN for AFTER EACH LOOSE STOOL Nystatin (Nystatin Powder) 15 Gm Powder, 1 PUFF TOP BID PRN for RASH/ITCHING APPLIES TO GROIN Allergies Coded Allergies: No Known Allergies (Unverified , 10/24/18) A-FIB/CHADSVASC A-FIB History Current/History of A-Fib/PAF?: No Current PO Anticoag Therapy: No RAMON GUADALUPE MD Mar 23, 2019 22:52
[2019-03-23] MEDS ORDERED: AZITHROMYCIN INJ 500 MG, VIAL MATE ADAPTER 1 EACH in D5W 250 ML IV SCH (23:00)
[2019-03-23] MEDS ORDERED: GLUCAGON FOR INJ 1 MG VIAL (J1610) SC PRN (23:00)
[2019-03-23] MEDS ORDERED: DEXTROSE 50% 50 ML SYRINGE IV PRN (23:00)
[2019-03-23] MEDS ORDERED: ACETAMINOPHEN TAB 650MG DOSE (2X325MG) PO PRN (23:00)
[2019-03-23] MEDS ORDERED: GLUCOSE 4 GM CHEW TABLET PO PRN (23:00)
[2019-03-23 23:25] LABS: FERRITIN 10 NG/ML (8-252); IRON (FE) 21 UG/DL (50-170); PERCENT SATURATION 5.9 % (13.2-45.0); TOTAL IRON BINDING CAPACITY 358 UG/DL (250-450)
[2019-03-23 23:41] LABS: HEMOGLOBIN A1c 8.3 %
[2019-03-24] MEDS: NS 1,000 ML IV SCH ×2 (01:09→17:34)
[2019-03-24] MEDS ORDERED: methylPREDNISolone INJ 125 MG/2 ML VIAL (J2930) IV STA (01:12)
[2019-03-24] MEDS ORDERED: ALBUTEROL SULFATE 2.5 MG/0.5 ML INH NEB SOLN NEB PRN (01:15)
[2019-03-24 01:51] LABS: VENOUS BASE EXCESS -0.7 (-2.0-2.0); VENOUS HCO3 23.9 MEQ/L (23.0-27.0); VENOUS O2 SATURATION 94.5 % (60.0-80.0); VENOUS PARTIAL PRESSURE O2 75.6 mmHg (30.0-50.0); VENOUS PH 7.405 UNITS (7.330-7.430); VENOUS STANDARD HCO3 23.9 MEQ/L; VENOUS TOTAL CO2 25.1 MEQ/L (24.0-28.0)
[2019-03-24] MEDS: BENZONATATE 100 MG CAP PO SCH ×3 (05:47→21:17)
[2019-03-24 05:58] LABS: HEMATOCRIT 27.6 % (36.0-47.0); HEMOGLOBIN 8.4 g/dl (12.0-15.5); MEAN CORPUSCULAR HEMOGLOBIN 25.2 pg (27.0-33.0); MEAN CORPUSCULAR HGB CONC 30.4 g/dl (32.0-36.5); MEAN CORPUSCULAR VOLUME 82.9 fl (80.0-96.0); RED BLOOD COUNT 3.33 10^6/uL (4.00-5.40); WHITE BLOOD COUNT 5.6 10^3/uL (4.0-10.0)
[2019-03-24 06:00] VITALS: BP 110/62
[2019-03-24 06:28] LABS: BLOOD UREA NITROGEN 12 MG/DL (7-18); CALCIUM LEVEL 8.8 MG/DL (8.8-10.2); CARBON DIOXIDE LEVEL 27 MEQ/L (21-32); CHLORIDE LEVEL 105 MEQ/L (98-107); CREATININE FOR GFR 0.83 MG/DL (0.55-1.30); GLOMERULAR FILTRATION RATE > 60.0 (>39); GLUCOSE, FASTING 206 MG/DL (70-100); POTASSIUM SERUM 3.9 MEQ/L (3.5-5.1); SODIUM LEVEL 137 MEQ/L (136-145)
[2019-03-24 06:35] LABS: PLATELET COUNT, AUTOMATED 81 10^3/uL (150-450)
[2019-03-24] MEDS: IPRATROPIUM 0.5MG/ALBUTEROL 2.5MG INH SOL UD 3ML (DUONEB)(J7620) NEB SCH ×3 (08:05→20:01)
[2019-03-24 08:36] LABS: ALBUMIN 2.9 GM/DL (3.2-5.2); ALT/SGPT 26 U/L (12-78); BILIRUBIN,TOTAL 0.8 MG/DL (0.2-1.0); TOTAL PROTEIN 8.1 GM/DL (6.4-8.2)
[2019-03-24] MEDS: ENOXAPARIN 40 MG/0.4 ML SYRINGE (J1650) SC SCH (08:45)
[2019-03-24] MEDS: PANTOPRAZOLE 40MG TAB (PROTONIX) PO SCH (08:45)
[2019-03-24] MEDS: HumaLOG INSULIN (NovoLOG) PER UNIT SC SCH ×4 (08:46→21:18)
[2019-03-24] MEDS: OMEPRAZOLE 20 MG CAP PO SCH (09:00)
[2019-03-24] MEDS: ASPIRIN 81 MG ENTERIC TAB PO SCH (09:00)
[2019-03-24] MEDS ORDERED: FLUBLOK(EGG FREE)(QUAD)INFLUENZA VACC 0.5ML SYRINGE (90682)18YRS&OLDER IM ONE (09:00)
[2019-03-24] MEDS: CYANOCOBALAMIN 500 MCG TAB PO SCH (09:00)
[2019-03-24] MEDS ORDERED: predniSONE 20 MG TAB PO SCH (09:00)
--- NOTE | 2019-03-24 09:54 | REP ---
PORTABLE CHEST: AP portable view of the chest is performed. Comparison made with prior lung CT, 08/30/2018. There is mild elevation of the left hemidiaphragm. There are bibasilar fibrotic changes with calcified pleural plaques seen bilaterally. No consolidating infiltrate is seen. Cardiomediastinal silhouette appears somewhat magnified. IMPRESSION: Interstitial fibrotic changes in the lung bases with calcified pleural plaques seen bilaterally. No consolidating infiltrate seen. Electronically Signed by Isaac Ledezma MD 03/24/2019 04:45 P
[2019-03-24] MEDS: AZITHROMYCIN INJ 500 MG, VIAL MATE ADAPTER 1 EACH in D5W 250 ML IV SCH (10:07)
--- NOTE | 2019-03-24 12:09 | IPNPDOC ---
Text Note Date of Service The patient was seen on 03/24/19. NOTE Subjective: Patient stated that she feels much better, she complains of lower abdominal pain, but denies any frequency in urination. Patient also stated that she has some dry cough without sputum production. Patient denies fever, chills, nausea, vomiting, shortness of breath, palpitations diarrhea or dysuria Objective: GENERAL APPEARANCE: NAD HEENT: . Normocephalic, atraumatic, mucous members moist and pink, lips acyanotic, CARDIOVASCULAR: S1-S2 LUNGS: Clear to auscultation bilaterally ABDOMEN: Some mild tenderness over suprapubic area MUSCULOSKELETAL: range of motion is intact in all 4 extremities NEUROLOGICAL: cranial nerves II to 12 are grossly intact. Speech is not dysarthric Patient 73 years old female with past medical history of diabetes, hypertension, CHF presented to the hospital with altered mental status. Altered mental status Patient was confused in the admission in time and in place Etiology is unclear. There is possibility for infectious process, patient significantly improved after antibiotic treatment. Altered mental status resolved. Patient did not have leukocytosis on admission. Chest x-ray was negative for infiltrate. I doubt that the patient has pneumonia Blood culture pending Respiratory panel negative Continue antibiotics empirically Will check pro calcitonin Suprapubic pain Patient has history of pelvis radiation and she has history of diverticulitis Urine culture shows multiple leukocytes, however patient denies dysuria Urine culture pending CT of abdomen and pelvis Confusion. See above COPD Continue home inhalers Normocytic anemia Iron panel pending, we'll check B12, folate, stool for occult blood Type 2 diabetes Insulin sliding scale Diabetes diet OA/unsteady gait According to the the patient. She's been having difficulty walking for the last 3 weeks. PT/OT dyslipidemia Continue home meds Obesity BMI 36.4 Neuropsychologist consult in the outpatient settings Might be candidate for bariatric surgery Diastolic CHF Not in acute exacerbation Continue home meds VS,Fishbone, I+O VS, Fishbone, I+O Laboratory Tests 03/23/19 18:39 03/24/19 05:46 Vital Signs Date Time Temp Pulse Resp B/P (MAP) Pulse Ox O2 Delivery O2 Flow Rate FiO2 03/24/19 06:00 98.1 90 21 110/62 (78) 95 Room Air I&O- Last 24 Hours up to 6 AM 03/24/19 06:00 Intake Total 1420 ml Output Total 950 ml Balance 470 ml JAYDON NGUYEN DO Mar 24, 2019 12:09
[2019-03-24] MEDS ORDERED: IPRATROPIUM 0.5MG/ALBUTEROL 2.5MG INH SOL UD 3ML (DUONEB)(J7620) NEB PRN (12:15)
[2019-03-24] MEDS ORDERED: LOPERAMIDE 2 MG CAPLET PO PRN (12:15)
[2019-03-24] MEDS ORDERED: NYSTATIN 100,000 UNITS/GM TOPICAL PWD 15 GM TOP PRN (12:15)
[2019-03-24] MEDS: GASTROGRAFIN SOLUTION 30ML PO SCH ×2 (12:39→13:08)
[2019-03-24 12:40] LABS: IRON (FE) 31 UG/DL (50-170); PERCENT SATURATION 9.7 % (13.2-45.0); TOTAL IRON BINDING CAPACITY 321 UG/DL (250-450)
[2019-03-24 14:00] VITALS: BP 132/78
[2019-03-24] MEDS ORDERED: ISOVUE-370 76% 100ML VIAL (Q9967) As Ordered ONE (14:13)
--- NOTE | 2019-03-24 15:13 | REP ---
CT ABDOMEN AND PELVIS WITH ORAL AND IV CONTRAST: TECHNIQUE: Axial contrast enhanced images from the lung bases to the pubic symphysis using 100 mL Isovue 370 intravenous contrast material with multiplanar reformations. In the visualized lung bases there are bilateral calcified pleural plaques. The liver is unremarkable. Gallbladder is contracted. Spleen is enlarged with a length of 17 mL. There are several small calcified granulomas in the spleen. The adrenals and pancreas are unremarkable. There is no hydronephrosis bilaterally. There is a cyst in the mid posterior right kidney measuring approximately 1 cm in diameter. There are moderate atherosclerotic calcifications of the abdominal aorta without aneurysm. There is edema/inflammation surrounding the proximal inferior mesenteric artery. This suggests vasculitis or possibly arterial occlusion. I do not see significant periaortic adenopathy. No free air or free fluid is seen. No bowel wall thickening is seen. No pelvic mass is seen. The urinary bladder is mildly distended and grossly unremarkable. There are degenerative changes of the spine. IMPRESSION: Edema surrounding the proximal inferior mesenteric artery may represent vasculitis or possibly occlusion. No free air or free fluid. No bowel inflammation. Splenomegaly. Electronically Signed by Isaac Ledezma MD 03/24/2019 05:19 P
[2019-03-24 17:06] LABS: ERYTHROCYTE SEDIMENTATION RATE 69 mm/hr (0-30)
[2019-03-24] MEDS: ATORVASTATIN 20 MG TAB PO SCH (20:01)
[2019-03-24] MEDS: cefTRIAXone SOD 2 GM in D5W MINI-BAG PLUS 50 ML IV SCH (20:01)
[2019-03-24 20:03] LABS: C REACTIVE PROTEIN QUANTITATIV 8.19 MG/DL (0.00-0.30)
[2019-03-24 22:00] VITALS: BP 115/57
[2019-03-25] MEDS: IPRATROPIUM 0.5MG/ALBUTEROL 2.5MG INH SOL UD 3ML (DUONEB)(J7620) NEB SCH ×4 (01:24→20:01)
[2019-03-25] MEDS: BENZONATATE 100 MG CAP PO SCH ×3 (05:24→21:10)
[2019-03-25 05:35] LABS: HEMATOCRIT 24.5 % (36.0-47.0); HEMOGLOBIN 7.3 g/dl (12.0-15.5)
[2019-03-25 06:00] VITALS: BP 115/57
[2019-03-25] MEDS: ENOXAPARIN 40 MG/0.4 ML SYRINGE (J1650) SC SCH (07:53)
[2019-03-25] MEDS: CYANOCOBALAMIN 500 MCG TAB PO SCH (07:54)
[2019-03-25] MEDS: ASPIRIN 81 MG ENTERIC TAB PO SCH (07:54)
[2019-03-25] MEDS: OMEPRAZOLE 20 MG CAP PO SCH (07:54)
[2019-03-25] MEDS: PANTOPRAZOLE 40MG TAB (PROTONIX) PO SCH (07:54)
[2019-03-25] MEDS: HumaLOG INSULIN (NovoLOG) PER UNIT SC SCH ×4 (07:55→21:00)
[2019-03-25] MEDS: AZITHROMYCIN INJ 500 MG, VIAL MATE ADAPTER 1 EACH in D5W 250 ML IV SCH (07:55)
--- NOTE | 2019-03-25 13:18 | CR.PDOC ---
General Date of Consultation: Mar 25, 2019 Consultation REASON FOR CONSULTATION/CHIEF COMPLAINT: Possible vasculitis HISTORY OF PRESENT ILLNESS: Ms Farooq is a pleasant 73yo patient with recent admission for mental status changes, increasing ambulatory dysfunction and fall, and suspected UTI/PNA who has had c/o fevers/chills, malaise, and unsteadiness over the past week or so. Accompanying these complaints is lower abdominal pain. Denies n/v/d. H/o rectal cancer s/p resection and radiation. +occult blood in stool but denies BRBPR or black tarry stools. UA +WBC +leuk est but no bacteria/culture contaminated (?) CT abd/pelvis with contrast was reviewed. She has some inflammation around the proximal SHAHIDA- no other vascular inflammation noted. Concern for vasculitis. It is unusual to have an isolated SHAHIDA vasculitis. I do not see obvious evidence of FMD. The ESR and CRP are elevated, and I feel a trial of steroids is warranted. Certainly her symptoms of fevers/chills, malaise, and abdominal pain are consistent with vasculitis. Recommend testing ANCA and for now starting prednisolone 1mg/kg/day. Also recommend colonoscopy with h/o rectal cancer/diverticulitis/hemorrhoids and recent stool +for blood. With no gross bleeding noted, likely decreased Hgb 9 to 7.3 partially related to rehydration during admission, but would be helpful to look for etiology of blood in stool. EGD may also be indicated prn. LA is 1.3 after hydration, and no s/o ischemic bowel on CT, and SHAHIDA is patent. Will see how she does with steroids and supportive care. IF Financial Aid Manager is available for consultation, may be helpful for their input. ALLERGIES: Please see below. HOME MEDICATIONS: Please see below. PAST MEDICAL HISTORY: 1. Poorly controlled DM II 2. HTN 3. Diverticulitis 4. COPD 5. OA 6. hemorrhoids 7. HLD 8. Fibrocystic breast disease 9. Degenerative disc disease PAST SURGICAL HISTORY: 1. Resection rectal ca, XRT and radiation proctitis 2. ILIA 3. Hemorrhoidectomy FAMILY HISTORY: DM, renal insufficiency, heart disease, HTN, colon cancer, breast cancer, skin cancer SOCIAL HISTORY: Denies tobacco, occasional ETOH, denies illicit drug use REVIEW OF SYSTEMS: CONSTITUTIONAL: +f/c, +malaise/fatigue HEENT: Denies vision changes CARDIOVASCULAR: denies CP RESPIRATORY: +SOB on exertion GENITOURINARY: denies dysuria or hematuria MUSCULOSKELETAL: +back pain, +amb dysfunction GASTROINTESTINAL: +abd pain, denies n/v/d or blood in stool SKIN: denies rash NEUROLOGICAL: +confusion, denies focal deficits PSYCHIATRIC: denies depression ENDOCRINE: +DM HEMATOLOGIC/LYMPHATIC: +easy bruising ALLERGIC/IMMUNOLOGIC: denies PHYSICAL EXAMINATION: VITAL SIGNS: Please see below. GENERAL APPEARANCE: medically stable HEENT: LEDA, TMI RESPIRATORY: slightly coarse BS bilat CARDIOVASCULAR: RRR ABDOMEN: soft, obese, TTP infraumbilical/suprapubic, no rebound or guarding, +BS EXTREMITIES: +distal pulses NEUROLOGICAL: A&O to person, MAEE PSYCHIATRIC: pleasant and cooperative LABORATORY DATA: Please see below. 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 1. Send ANCA. 2. Start prednisolone 1 mg/kg/day . Taper to 0.5 mg/kg/day after 4 weeks, then 15mg /kg. 3. Repeat CTA abd/pelvis in 3 months 4. Recommend rheumatology consult if possible 5. Recommend colonoscopy with h/o rectal ca, radiation proctitis, hemorrhoids, diverticulitis, and new SHAHIDA finding, with recent +occult blood in stool. Vital Signs/I&O Vital Signs Date Time Temp Pulse Resp B/P (MAP) Pulse Ox O2 Delivery O2 Flow Rate FiO2 03/25/19 06:00 97.9 88 17 115/57 (76) 97 Room Air I&O- Last 24 Hours up to 6 AM 03/25/19 09:00 Intake Total 3110 ml Output Total 900 ml Balance 2210 ml Laboratory Data Labs 24H Laboratory Tests 2 03/24/19 16:57: Bedside Glucose (Misc Panel) 324H 03/24/19 20:34: Bedside Glucose (Misc Panel) 342H 03/25/19 07:46: Bedside Glucose (Misc Panel) 215H 03/25/19 11:44: Bedside Glucose (Misc Panel) 233H CBC/BMP Laboratory Tests 03/25/19 05:23 Microbiology Microbiology 03/24/19 Stool Occult Blood (MOISES) - Final, Complete 03/23/19 Respiratory Virus Panel (PCR) (MOISES) - Final, Complete 03/23/19 Urine Culture - Final, Complete 03/23/19 Blood Culture - Preliminary, Resulted No growth after 24 hours . All specim... 03/23/19 Blood Culture - Preliminary, Resulted No growth after 24 hours . All specim... Allergies Coded Allergies: No Known Allergies (Unverified , 10/24/18) Home Medications Scheduled Aspirin (Aspir 81) 81 Mg Tablet.dr, 81 MG PO DAILY, (Reported) Atorvastatin Calcium (Atorvastatin Calcium) 40 Mg Tablet, 40 MG PO QHS, (Reported) Cyanocobalamin (Vitamin B-12) (Vitamin B-12) 1,000 Mcg Capsule, 1,000 MCG PO DAILY, (Reported) Metformin HCl (Metformin HCl) 500 Mg Tablet, 500 MG PO BID, (Reported) Omeprazole (Omeprazole) 40 Mg Capsule.dr, 40 MG PO DAILY, (Reported) Umeclidinium Brm/Vilanterol Tr (Anoro Ellipta 62.5-25 Mcg INH) 1 Each Blst.w.dev, 1 PUFF INH DAILY, (Reported) Scheduled PRN Acetaminophen (Tylenol Arthritis) 650 Mg Tablet.er, 650 MG PO Q8H PRN for PAIN, (Reported) Cetirizine HCl (Cetirizine HCl) 10 Mg Tablet, 10 MG PO DAILY PRN for ALLERGY SYMPTOMS, (Reported) Diclofenac Sodium (Voltaren) 100 Gm Gel..gram., 1 APLCT TOP DAILY PRN for PAIN, (Reported) APPLIES TO FEET Loperamide HCl (Loperamide) 2 Mg Capsule, 2 MG PO Q6H PRN for AFTER EACH LOOSE STOOL, (Reported) Nystatin (Nystatin Powder) 15 Gm Powder, 1 PUFF TOP BID PRN for RASH/ITCHING, (Reported) APPLIES TO GROIN JERSEY TRAMMELL MD Mar 25, 2019 13:18
[2019-03-25 14:00] VITALS: BP 130/60
--- NOTE | 2019-03-25 19:23 | IPNPDOC ---
Text Note Date of Service The patient was seen on 03/25/19. NOTE Subjective: No any acute events overnight . Patient had bowel movement. Patient denies fever, chills, nausea, vomiting, shortness of breath, palpitations diarrhea or dysuria Objective: GENERAL APPEARANCE: NAD HEENT: Normocephalic, atraumatic, mucous members moist and pink, lips acyanotic, CARDIOVASCULAR: S1-S2 LUNGS: Clear to auscultation bilaterally ABDOMEN: Some mild tenderness over suprapubic area MUSCULOSKELETAL: range of motion is intact in all 4 extremities NEUROLOGICAL: cranial nerves II to 12 are grossly intact. Speech is not dysarthric CT ABDOMEN AND PELVIS WITH ORAL AND IV CONTRAST: TECHNIQUE: Axial contrast enhanced images from the lung bases to the pubic symphysis using 100 mL Isovue 370 intravenous contrast material with multiplanar reformations. In the visualized lung bases there are bilateral calcified pleural plaques. The liver is unremarkable. Gallbladder is contracted. Spleen is enlarged with a length of 17 mL. There are several small calcified granulomas in the spleen. The adrenals and pancreas are unremarkable. There is no hydronephrosis bilaterally. There is a cyst in the mid posterior right kidney measuring approximately 1 cm in diameter. There are moderate atherosclerotic calcifications of the abdominal aorta without aneurysm. There is edema/inflammation surrounding the proximal inferior mesenteric artery. This suggests vasculitis or possibly arterial occlusion. I do not see significant periaortic adenopathy. No free air or free fluid is seen. No bowel wall thickening is seen. No pelvic mass is seen. The urinary bladder is mildly distended and grossly unremarkable. There are degenerative changes of the spine. IMPRESSION: Edema surrounding the proximal inferior mesenteric artery may represent vasculitis or possibly occlusion. No free air or free fluid. No bowel inflammation. Splenomegaly. Electronically Signed by Isaac Ledezma MD 03/24/2019 05:19 P Assessment and plan Patient 73 years old female with past medical history of diabetes, hypertension, CHF presented to the hospital with altered mental status. 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 Concern for vasculitis. It is unusual to have an isolated SHAHIDA vasculitis. ESR and CRP are elevated Dr Jorgensen recommended start prednisolone 1 mg/kg/day . Taper to 0.5 mg/kg/day after 4 weeks, then 15mg /kg. TIM, ANCA Repeat CTA abd/pelvis in 3 months GI bleed Patient was found to have positive stool for occult blood. Patient has complicated history of rectal carcinoma, radiation proctitis, hemorrhoids, diverticulitis and new SHAHIDA Appreciate/agree with GI consult, most likely patient will need colonoscopy and EGD Altered mental status Resolved Patient was confused in the admission in time and in place Etiology is unclear. There is possibility for infectious process, patient significantly improved after antibiotic treatment. Altered mental status resolved. Patient did not have leukocytosis on admission. Chest x-ray was negative for infiltrate. I doubt that the patient has pneumonia Blood culture negative Respiratory panel negative UA showed multiple leukocytes. Antibiotics started empirically I will repeat UA Suprapubic pain Patient has history of pelvis radiation and she has history of diverticulitis Urine culture shows multiple leukocytes, however patient denies dysuria Urine culture pending CT of abdomen and pelvis Confusion. See above COPD Continue home inhalers Normocytic anemia Type 2 diabetes Insulin sliding scale Diabetes diet OA/unsteady gait According to the the patient. She's been having difficulty walking for the last 3 weeks. 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
[2019-03-25 20:26] LABS: CALCIUM LEVEL 8.3 MG/DL (8.8-10.2); CREATININE FOR GFR 0.98 MG/DL (0.55-1.30); GLOMERULAR FILTRATION RATE 59.4 (>39)
[2019-03-25] MEDS: ATORVASTATIN 20 MG TAB PO SCH (21:09)
[2019-03-25] MEDS: cefTRIAXone SOD 2 GM in D5W MINI-BAG PLUS 50 ML IV SCH (21:09)
[2019-03-25 22:00] VITALS: BP 130/69
[2019-03-26] VITALS (8 sets, daily range): BP systolic 129–145; BP diastolic 63–82
[2019-03-26] MEDS: IPRATROPIUM 0.5MG/ALBUTEROL 2.5MG INH SOL UD 3ML (DUONEB)(J7620) NEB SCH ×4 (01:35→19:46)
[2019-03-26 01:44] LABS: BLOOD UREA NITROGEN 18 MG/DL (7-18); CALCIUM LEVEL 8.7 MG/DL (8.8-10.2); CARBON DIOXIDE LEVEL 25 MEQ/L (21-32); CHLORIDE LEVEL 107 MEQ/L (98-107); CREATININE FOR GFR 0.96 MG/DL (0.55-1.30); GLOMERULAR FILTRATION RATE > 60.0 (>39); GLUCOSE, FASTING 191 MG/DL (70-100); POTASSIUM SERUM 3.8 MEQ/L (3.5-5.1); SODIUM LEVEL 138 MEQ/L (136-145)
[2019-03-26 06:23] LABS: HEMATOCRIT 25.2 % (36.0-47.0); HEMOGLOBIN 7.5 g/dl (12.0-15.5); MEAN CORPUSCULAR HEMOGLOBIN 24.9 pg (27.0-33.0); MEAN CORPUSCULAR HGB CONC 29.8 g/dl (32.0-36.5); MEAN CORPUSCULAR VOLUME 83.7 fl (80.0-96.0); RED BLOOD COUNT 3.01 10^6/uL (4.00-5.40); WHITE BLOOD COUNT 3.7 10^3/uL (4.0-10.0)
[2019-03-26 06:25] LABS: PLATELET COUNT, AUTOMATED 93 10^3/uL (150-450)
[2019-03-26] MEDS: BENZONATATE 100 MG CAP PO SCH ×3 (06:28→22:17)
[2019-03-26 06:48] LABS: BLOOD UREA NITROGEN 18 MG/DL (7-18); CALCIUM LEVEL 8.3 MG/DL (8.8-10.2); CARBON DIOXIDE LEVEL 25 MEQ/L (21-32); CHLORIDE LEVEL 108 MEQ/L (98-107); CREATININE FOR GFR 0.91 MG/DL (0.55-1.30); GLOMERULAR FILTRATION RATE > 60.0 (>39); GLUCOSE, FASTING 130 MG/DL (70-100); MAGNESIUM LEVEL 1.7 MG/DL (1.8-2.4); SODIUM LEVEL 140 MEQ/L (136-145)
[2019-03-26] MEDS: HumaLOG INSULIN (NovoLOG) PER UNIT SC SCH ×4 (07:53→22:16)
[2019-03-26] MEDS: ASPIRIN 81 MG ENTERIC TAB PO SCH (07:53)
[2019-03-26] MEDS: OMEPRAZOLE 20 MG CAP PO SCH (07:53)
[2019-03-26] MEDS: PANTOPRAZOLE 40MG TAB (PROTONIX) PO SCH (07:54)
[2019-03-26] MEDS: AZITHROMYCIN INJ 500 MG, VIAL MATE ADAPTER 1 EACH in D5W 250 ML IV SCH (07:54)
[2019-03-26] MEDS: predniSONE 50 MG TAB PO SCH (07:54)
[2019-03-26] MEDS: CYANOCOBALAMIN 500 MCG TAB PO SCH (07:54)
[2019-03-26] MEDS: ENOXAPARIN 40 MG/0.4 ML SYRINGE (J1650) SC SCH (08:29)
[2019-03-26] MEDS ORDERED: LEVEMIR (INSULIN DETEMIR) 1 UNITS/0.01ML SC SCH (09:00)
--- NOTE | 2019-03-26 12:47 | IPNPDOC ---
Text Note Date of Service The patient was seen on 03/26/19. NOTE Vascular surgery. Dr. Arrington. The patient states she is still having some lower abdominal pain. Denies n/v. States she has had some diarrhea, C. difficile PCR is pending. The patient is known to have a history of rectal cancer s/p resection and radiation, +occult blood in stool. The patient states she has had some dark tarry stools. Gen. surgery is consulted with plan for colonoscopy to further assess. CT indicated edema around SHAHIDA, possible vasculitis. Patient was started on oral prednisone. TIM/ANCA is pending. Recommendation to CTA abd/pelvis in 3 months Consider rheumatology consult if possible We will continue to follow along with you. VS,Fishbone, I+O VS, Fishbone, I+O Laboratory Tests 03/25/19 19:52 03/26/19 01:11 03/26/19 06:12 Vital Signs Date Time Temp Pulse Resp B/P (MAP) Pulse Ox O2 Delivery O2 Flow Rate FiO2 03/26/19 06:00 97.9 91 20 131/68 (89) 98 Room Air I&O- Last 24 Hours up to 6 AM 03/26/19 05:59 Intake Total 2015 ml Output Total 200 ml Balance 1815 ml Kaye Ingram Mar 26, 2019 12:47
[2019-03-26 13:56] LABS: BLOOD UREA NITROGEN 18 MG/DL (7-18); CARBON DIOXIDE LEVEL 24 MEQ/L (21-32); CHLORIDE LEVEL 106 MEQ/L (98-107); CREATININE FOR GFR 0.94 MG/DL (0.55-1.30); GLOMERULAR FILTRATION RATE > 60.0 (>39); GLUCOSE, FASTING 249 MG/DL (70-100); POTASSIUM SERUM 4.4 MEQ/L (3.5-5.1); SODIUM LEVEL 135 MEQ/L (136-145)
[2019-03-26] MEDS ORDERED: NS 1,000 ML IV SCH (17:20)
--- NOTE | 2019-03-26 17:48 | IPNPDOC ---
Text Note Date of Service The patient was seen on 03/26/19. NOTE Subjective: No any acute events overnight . Today patient had bowel movement with red bright blood covered stool Objective: GENERAL APPEARANCE: NAD HEENT: Normocephalic, atraumatic, mucous members moist and pink, lips acyanotic, CARDIOVASCULAR: S1-S2 LUNGS: Clear to auscultation bilaterally ABDOMEN: Some mild tenderness over suprapubic area MUSCULOSKELETAL: range of motion is intact in all 4 extremities NEUROLOGICAL: cranial nerves II to 12 are grossly intact. Speech is not dysarthric Assessment and plan Patient 73 years old female with past medical history of diabetes, hypertension, CHF presented to the hospital with altered mental status. The patient is known to have a history of rectal cancer s/p resection and radiation around 10 years ago. 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 Dr Jorgensen recommended start prednisolone 1 mg/kg/day . Taper to 0.5 mg/kg/day after 4 weeks, then 15mg /kg. Patient will need repeated CT scan of abdomen in 3 months. Also patient had stool positive for blood and anemia most likely secondary to GI blood loss. On 03/26/19 1 unit of blood transfusion due to symptomatic anemia. Dr. Victor most likely will proceed with colonoscopy. Vasculitis On the abdominal CAT scan seen inflammation around the proximal SHAHIDA- no other vascular inflammation noted. Concern for vasculitis. I ESR and CRP are elevated Dr Jorgensen recommended to start prednisolone 1 mg/kg/day . Taper to 0.5 mg/kg/day after 4 weeks, then 15mg /kg. TIM, ANCA Repeat CTA abd/pelvis in 3 months GI bleed Patient was found to have positive stool for occult blood. Patient has complicated history of rectal carcinoma, radiation proctitis, hemorrhoids, diverticulitis and new SHAHIDA Appreciate/agree with GI consult, most likely patient will need colonoscopy and EGD Altered mental status Resolved Patient was confused in the admission in time and in place Etiology is unclear. There is possibility for infectious process, patient significantly improved after antibiotic treatment. Altered mental status resolved. Patient did not have leukocytosis on admission. Broad-spectrum antibiotic therapy started for possible pneumonia. Chest x-ray was negative for infiltrate. I doubt that the patient had pneumonia Blood culture negative Respiratory panel negative UA showed multiple leukocytes. Patient received antibiotics for 3 days repeated UA unremarkable. Urine culture negative. I stopped antibiotic Suprapubic pain Patient has history of pelvis radiation and she has history of diverticulitis Urine culture shows multiple leukocytes, however patient denies dysuria Urine culture negative Confusion. See above COPD Continue home inhalers Normocytic anemia Most likely secondary to blood loss with anemia of chronic diseases On 03/26/19 hemoglobin 7.5, later patient developed red bright blood per rectum with symptomatic weakness 1 unit of blood transfusion given Type 2 diabetes Insulin sliding scale Diabetes diet OA/unsteady gait According to the the patient. She's been having difficulty walking for the last 3 weeks. 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
[2019-03-26 18:39] LABS: CALCIUM LEVEL 9.3 MG/DL (8.8-10.2); CREATININE FOR GFR 1.01 MG/DL (0.55-1.30); GLOMERULAR FILTRATION RATE 57.4 (>39); POTASSIUM SERUM 4.3 MEQ/L (3.5-5.1)
[2019-03-26] MEDS: ATORVASTATIN 20 MG TAB PO SCH (22:17)
[2019-03-26] MEDS: LEVEMIR (INSULIN DETEMIR) 1 UNITS/0.01ML SC SCH (22:17)
[2019-03-27 01:54] VITALS: O2SAT 93
[2019-03-27] MEDS: IPRATROPIUM 0.5MG/ALBUTEROL 2.5MG INH SOL UD 3ML (DUONEB)(J7620) NEB SCH ×4 (01:56→20:43)
[2019-03-27 02:32] LABS: BLOOD UREA NITROGEN 22 MG/DL (7-18); CALCIUM LEVEL 8.9 MG/DL (8.8-10.2); CARBON DIOXIDE LEVEL 26 MEQ/L (21-32); CHLORIDE LEVEL 109 MEQ/L (98-107); GLOMERULAR FILTRATION RATE > 60.0 (>39); GLUCOSE, FASTING 194 MG/DL (70-100); POTASSIUM SERUM 4.2 MEQ/L (3.5-5.1); SODIUM LEVEL 140 MEQ/L (136-145)
[2019-03-27] MEDS: BENZONATATE 100 MG CAP PO SCH ×3 (05:49→21:17)
[2019-03-27 06:00] VITALS: BP 127/64
[2019-03-27 07:59] LABS: BLOOD UREA NITROGEN 22 MG/DL (7-18); CALCIUM LEVEL 8.9 MG/DL (8.8-10.2); CARBON DIOXIDE LEVEL 26 MEQ/L (21-32); CHLORIDE LEVEL 109 MEQ/L (98-107); CREATININE FOR GFR 0.77 MG/DL (0.55-1.30); GLOMERULAR FILTRATION RATE > 60.0 (>39); GLUCOSE, FASTING 132 MG/DL (70-100); MAGNESIUM LEVEL 1.9 MG/DL (1.8-2.4); POTASSIUM SERUM 3.8 MEQ/L (3.5-5.1); SODIUM LEVEL 140 MEQ/L (136-145)
[2019-03-27] MEDS: LEVEMIR (INSULIN DETEMIR) 1 UNITS/0.01ML SC SCH ×2 (08:10→21:17)
[2019-03-27] MEDS: CYANOCOBALAMIN 500 MCG TAB PO SCH (08:11)
[2019-03-27] MEDS: HumaLOG INSULIN (NovoLOG) PER UNIT SC SCH ×4 (08:11→23:11)
[2019-03-27] MEDS: ASPIRIN 81 MG ENTERIC TAB PO SCH (08:11)
[2019-03-27] MEDS: OMEPRAZOLE 20 MG CAP PO SCH (08:11)
[2019-03-27] MEDS: ENOXAPARIN 40 MG/0.4 ML SYRINGE (J1650) SC SCH (08:12)
[2019-03-27] MEDS: predniSONE 50 MG TAB PO SCH (08:12)
[2019-03-27] MEDS: PANTOPRAZOLE 40MG TAB (PROTONIX) PO SCH (08:12)
--- NOTE | 2019-03-27 08:31 | IPNPDOC ---
Text Note Date of Service The patient was seen on 03/27/19. NOTE Vascular surgery. Dr. Arrington. The patient states lower abdominal pain is improved today, still has some. Denies n/v. States diarrhea has improved, BM x 7 yesterday, none today. Pt denies blood or dark tarry stools today. C. difficile PCR is pending. The patient is known to have a history of rectal cancer s/p resection and radiation, +occult blood in stool. Gen. surgery is consulted for consideration of EGD/colonoscopy to further assess. S/P 1 u PRBC 03/26. Hgb 7.[address] indicated edema around SHAHIDA, possible vasculitis. Patient was started on oral prednisone. TIM/ANCA is pending. Recommendation to CTA abd/pelvis in 3 months Recommend consider rheumatology consult if possible. We will continue to follow along with you. VS,Fishbone, I+O VS, Fishbone, I+O Laboratory Tests 03/26/19 13:22 03/26/19 17:54 03/27/19 01:45 03/27/19 07:24 Vital Signs Date Time Temp Pulse Resp B/P (MAP) Pulse Ox O2 Delivery O2 Flow Rate FiO2 03/27/19 06:00 97.2 84 20 127/64 (85) 99 Room Air I&O- Last 24 Hours up to 6 AM 03/27/19 06:00 Intake Total 2070 ml Output Total 600 ml Balance 1470 ml Kaye Ingram Mar 27, 2019 08:31
[2019-03-27 09:00] LABS: HEMATOCRIT 26.7 % (36.0-47.0); HEMOGLOBIN 8.1 g/dl (12.0-15.5); MEAN CORPUSCULAR HEMOGLOBIN 25.4 pg (27.0-33.0); MEAN CORPUSCULAR HGB CONC 30.3 g/dl (32.0-36.5); MEAN CORPUSCULAR VOLUME 83.7 fl (80.0-96.0); RED BLOOD COUNT 3.19 10^6/uL (4.00-5.40); WHITE BLOOD COUNT 3.5 10^3/uL (4.0-10.0)
[2019-03-27 09:06] LABS: PLATELET COUNT, AUTOMATED 99 10^3/uL (150-450)
--- NOTE | 2019-03-27 12:17 | IPNPDOC ---
Text Note Date of Service The patient was seen on 03/27/19. NOTE Subjective: -No any acute events overnight. -Yesterday she had bowel movement with red bright blood s/p 1u pRBC -well formed non bloody stool this morning -reports mild abdominal pain without any worsening, pending surgery eval for colonoscopy? Objective: GENERAL APPEARANCE: NAD, sitting up in chair HEENT: Normocephalic, atraumatic, mucous members moist and pink CARDIOVASCULAR: RRR, no mrg, S1-S2 LUNGS: Clear to auscultation bilaterally ABDOMEN: Normoactive sounds, obese, soft, some mild tenderness over lower abdomen, no guarding MUSCULOSKELETAL: range of motion is intact in all 4 extremities NEUROLOGICAL: cranial nerves II to 12 are grossly intact. Speech is not dysarthric Assessment and plan 73 years old woman with remote history of rectal CA s/p resection and radiation approx 10y ago with last surveillance imaging and colonoscopy in 10/2018 with recurrence, diabetes, hypertension, CHF who presented to the hospital with altered mental status and was found to have inflammation around the SHAHIDA with elevated inflammatory markers, ESR and CRP c/f vasculitis and on vascular evaluatio, Dr Jorgensen recommended prednisolone 1 mg/kg/day with taper to 0.5 mg/kg/day after 4 weeks, then 15mg /kg and repeat CT scan of abdomen in 3 months, and rheumatology consultation if available. Her course was c/b acute hematochezia with acute on chronic anemia s/p 1u blood, now pending colonoscopy with Dr. Victor. Abdominal pain with evidence of inflammation around SHAHIDA and elevated inflammatory markers c/f vasculitis -Dr Jorgensen recommended to start prednisolone 1 mg/kg/day . Taper to 0.5 mg/kg/day after 4 weeks, then 15mg /kg. -follow up TIM, ANCA -Repeat CTA abd/pelvis in 3 months -rheumatology consult at discharge GI bleed -Patient was found to have juan manuel hematochezia on 03/26, with a known history of rectal carcinoma, radiation proctitis, hemorrhoids, diverticulitis and new SHAHIDA inflammatory changes. -No GI consult this week, so consulted surgery. Will touch base with Dr. Victor about plan for colonoscopy. Altered mental status -Resolved -Patient was confused in the admission in time and in place -Etiology is unclear. There is possibility for infectious process, patient significantly improved after antibiotic treatment. Altered mental status resolved. Patient did not have leukocytosis on admission. Broad-spectrum antibiotic therapy started for possible pneumonia though CXR was negative for infiltrate -Blood culture negative -Respiratory panel negative -UA showed multiple leukocytes. Patient received antibiotics for 3 days and repeat UA was unremarkable while urine culture was negative. Suprapubic pain -Patient has history of pelvis radiation and she has history of diverticulitis -Urine culture shows multiple leukocytes, however patient denies dysuria and urine culture was negative -Monitor COPD -Continue PRN nebs Normocytic anemia -Most likely secondary to blood loss on anemia of chronic inflammation -On 03/26/19 hemoglobin 7.5, later patient developed red bright blood per rectum with symptomatic weakness 1 unit of blood transfusion given -monitor with daily CBC Type 2 diabetes -Insulin sliding scale -Diabetes diet -FSBG AC/HS -hypoglycemia protocol OA/unsteady gait -According to the the patient, she has been having difficulty walking for the last 3 weeks. 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 SCDs and TEDs. VS,Fishbone, I+O VS, Fishbone, I+O Laboratory Tests 03/26/19 13:22 03/26/19 17:54 03/27/19 01:45 03/27/19 07:20 03/27/19 07:24 Vital Signs Date Time Temp Pulse Resp B/P (MAP) Pulse Ox O2 Delivery O2 Flow Rate FiO2 03/27/19 06:00 97.2 84 20 127/64 (85) 99 Room Air I&O- Last 24 Hours up to 6 AM 03/27/19 06:00 Intake Total 2070 ml Output Total 600 ml Balance 1470 ml MILTON AGUIRRE MD Mar 27, 2019 12:17
[2019-03-27 14:00] VITALS: BP 126/60
[2019-03-27 14:15] LABS: CALCIUM LEVEL 8.8 MG/DL (8.8-10.2); CREATININE FOR GFR 1.02 MG/DL (0.55-1.30); GLOMERULAR FILTRATION RATE 56.7 (>39); POTASSIUM SERUM 4.3 MEQ/L (3.5-5.1)
--- NOTE | 2019-03-27 20:10 | IPNPDOC ---
Date Seen The patient was seen on 03/27/19. Progress Note Pt seen and examined. Doing a little better today and less abdominal pain. It is very unusual to have isolated SHAHIDA vasculitis, but with elevated ESR and CRP and improvement in sx with steroids, diagnosis may be accurate. She certainly has many etiologies for abdominal pain, in addition to this. Her TIM and ANCA are pending. Continue steroids. We will need to follow up with her in 3 months with a repeat CTA of the abd/pelvis. VS, I&O, 24H, Fishbone Vital Signs/I&O Vital Signs Date Time Temp Pulse Resp B/P (MAP) Pulse Ox O2 Delivery O2 Flow Rate FiO2 03/27/19 14:00 97.6 89 16 126/60 (82) 100 Room Air I&O- Last 24 Hours up to 6 AM 03/27/19 06:00 Intake Total 2070 ml Output Total 600 ml Balance 1470 ml Laboratory Data 24H LABS Laboratory Tests 2 03/26/19 21:37: Bedside Glucose (Misc Panel) 242H 03/27/19 01:45: Anion Gap 5L, Glomerular Filtration Rate > 60.0, Calcium Level 8.9 03/27/19 05:52: Bedside Glucose (Misc Panel) 157H 03/27/19 07:20: Nucleated Red Blood Cells % (auto) 0.0, Immature Platelet Fraction 3.8 03/27/19 07:24: Anion Gap 5L, Glomerular Filtration Rate > 60.0, Calcium Level 8.9, Magnesium Level 1.9 03/27/19 11:22: Bedside Glucose (Misc Panel) 237H 03/27/19 13:34: Anion Gap 7L, Glomerular Filtration Rate 56.7, Calcium Level 8.8 03/27/19 16:52: Bedside Glucose (Misc Panel) 293H CBC/BMP Laboratory Tests 03/27/19 01:45 03/27/19 07:20 03/27/19 07:24 03/27/19 13:34 Microbiology Microbiology 03/24/19 Stool Occult Blood (MOISES) - Final, Complete 03/23/19 Respiratory Virus Panel (PCR) (MOISES) - Final, Complete 03/23/19 Urine Culture - Final, Complete 03/23/19 Blood Culture - Preliminary, Resulted No Growth after 72 hours. All specime... 03/23/19 Blood Culture - Preliminary, Resulted No Growth after 72 hours. All specime... JERSEY TRAMMELL MD Mar 27, 2019 20:10
[2019-03-27] MEDS: ATORVASTATIN 20 MG TAB PO SCH (21:17)
[2019-03-27 22:00] VITALS: BP 143/75
[2019-03-28] MEDS: IPRATROPIUM 0.5MG/ALBUTEROL 2.5MG INH SOL UD 3ML (DUONEB)(J7620) NEB SCH ×4 (01:56→19:41)
[2019-03-28] MEDS: BENZONATATE 100 MG CAP PO SCH ×3 (05:15→21:14)
[2019-03-28 06:00] VITALS: BP 154/90
[2019-03-28 06:12] LABS: HEMATOCRIT 27.4 % (36.0-47.0); HEMOGLOBIN 8.4 g/dl (12.0-15.5); MEAN CORPUSCULAR HEMOGLOBIN 25.2 pg (27.0-33.0); MEAN CORPUSCULAR HGB CONC 30.7 g/dl (32.0-36.5); MEAN CORPUSCULAR VOLUME 82.3 fl (80.0-96.0); PLATELET COUNT, AUTOMATED 105 10^3/uL (150-450); RED BLOOD COUNT 3.33 10^6/uL (4.00-5.40); WHITE BLOOD COUNT 3.7 10^3/uL (4.0-10.0)
[2019-03-28 06:30] LABS: BLOOD UREA NITROGEN 21 MG/DL (7-18); CREATININE FOR GFR 0.77 MG/DL (0.55-1.30); GLUCOSE, FASTING 112 MG/DL (70-100)
[2019-03-28 06:31] LABS: CALCIUM LEVEL 9.2 MG/DL (8.8-10.2); CARBON DIOXIDE LEVEL 24 MEQ/L (21-32); CHLORIDE LEVEL 108 MEQ/L (98-107); GLOMERULAR FILTRATION RATE > 60.0 (>39); MAGNESIUM LEVEL 1.9 MG/DL (1.8-2.4); POTASSIUM SERUM 3.7 MEQ/L (3.5-5.1); SODIUM LEVEL 138 MEQ/L (136-145)
[2019-03-28] MEDS: predniSONE 50 MG TAB PO SCH (08:08)
[2019-03-28] MEDS: HumaLOG INSULIN (NovoLOG) PER UNIT SC SCH ×4 (08:08→21:15)
[2019-03-28] MEDS: PANTOPRAZOLE 40MG TAB (PROTONIX) PO SCH (08:09)
[2019-03-28] MEDS: CYANOCOBALAMIN 500 MCG TAB PO SCH (08:09)
[2019-03-28] MEDS: OMEPRAZOLE 20 MG CAP PO SCH (08:09)
[2019-03-28] MEDS: ASPIRIN 81 MG ENTERIC TAB PO SCH (08:09)
[2019-03-28] MEDS: LEVEMIR (INSULIN DETEMIR) 1 UNITS/0.01ML SC SCH ×2 (08:10→21:14)
[2019-03-28] MEDS: ENOXAPARIN 40 MG/0.4 ML SYRINGE (J1650) SC SCH (09:00)
--- NOTE | 2019-03-28 09:39 | IPNPDOC ---
Text Note Date of Service The patient was seen on 03/28/19. NOTE Pt seen and examined this AM. Patient reports less abdominal pain overall. P atient is reviewed and examined as per Dr. Arrington, it is noted to be unusual to have isolated SHAHIDA vasculitis, but has had elevated ESR and CRP and improvement in sx with steroids. Patient is noted to have many possible etiologies for abdominal pain, in addition to this. TIM and ANCA are pending. Continue steroids. Patient is possibly being discharged today, we will plan for follow up with her in 3 months with a repeat CTA of the abd/pelvis. VS,Fishbone, I+O VS, Fishbone, I+O Laboratory Tests 03/27/19 13:34 03/28/19 05:22 Vital Signs Date Time Temp Pulse Resp B/P (MAP) Pulse Ox O2 Delivery O2 Flow Rate FiO2 03/28/19 06:00 97.2 102 20 154/90 (111) 96 Room Air I&O- Last 24 Hours up to 6 AM 03/28/19 06:00 Intake Total 2460 ml Output Total 1100 ml Balance 1360 ml Kaye Ingram Mar 28, 2019 09:39
--- NOTE | 2019-03-28 12:23 | IPNPDOC ---
Text Note Date of Service The patient was seen on 03/28/19. NOTE Interim events and Subjective: -No any acute events overnight. -having episodic diarrhea, non bloody -reports mild much improved abdominal pain -spoke with Dr. Victor about potential colonoscopy given the recent history of hematochezia with an acute H/H drop and decided to defer to outpatient GI follow up as it has not stabilized Objective: GENERAL APPEARANCE: NAD, sitting up in chair HEENT: Normocephalic, atraumatic, mucous members moist and pink CARDIOVASCULAR: RRR, no mrg, S1-S2 LUNGS: Clear to auscultation bilaterally ABDOMEN: Normoactive sounds, obese, soft, mild tenderness over lower abdomen, no guarding MUSCULOSKELETAL: range of motion is intact in all 4 extremities NEUROLOGICAL: cranial nerves II to 12 are grossly intact. Speech is not dysarthric Assessment and plan 73 years old woman with remote history of rectal CA s/p resection and radiation approx 10y ago with last surveillance imaging and colonoscopy in 10/2018 without evidence of recurrence, diabetes, hypertension, CHF who presented to the hospital with altered mental status and was found to have inflammation around the SHAHIDA with elevated inflammatory markers, ESR and CRP c/f vasculitis and on vascular evaluation, Dr Jorgensen recommended prednisolone 1 mg/kg/day with taper to 0.5 mg/kg/day after 4 weeks, then 15mg /kg and repeat CT scan of abd omen in 3 months, and rheumatology consultation if available. Her course was c/b acute hematochezia with acute on chronic anemia s/p 1u blood that has now resolved and will plan for close outpatient follow up with GI. In the meantime course c/b hyperglycemia in the setting of steroids and will attempt to adjust antihyperglycemics while pending infectious work for episodic diarrhea with plan for discharge home tomorrow. Abdominal pain with evidence of inflammation around SHAHIDA and elevated inflamm atory markers c/f vasculitis -Dr Jorgensen recommended to start prednisolone 1 mg/kg/day . Taper to 0.5 mg/kg/day after 4 weeks, then 15mg /kg. -follow up TIM, ANCA -Repeat CTA abd/pelvis in 3 months -rheumatology consult at discharge GI bleed -Patient was found to have juan manuel hematochezia on 03/26, with a known history of rectal carcinoma, radiation proctitis, hemorrhoids, diverticulitis and new SHAHIDA inflammatory changes. -No GI consult this week, so consulted surgery and on discussion with Dr. Victor about a possible colonoscopy, deferred after she was stable over 48h with no further bleeding, and will plan for outpatient GI follow up. Altered mental status -Resolved -Patient was confused in the admission in time and in place -Etiology is unclear. There is possibility for infectious process, patient significantly improved after antibiotic treatment. Altered mental status resolved. Patient did not have leukocytosis on admission. Broad-spectrum antibiotic therapy started for possible pneumonia though CXR was negative for infiltrate -Blood culture negative -Respiratory panel negative -UA showed multiple leukocytes. Patient received antibiotics for 3 days and repeat UA was unremarkable while urine culture was negative. Suprapubic pain -Patient has history of pelvis radiation and she has history of diverticulitis -Urine culture shows multiple leukocytes, however patient denies dysuria and urine culture was negative -Monitor COPD -Continue PRN nebs Normocytic anemia -Most likely secondary to blood loss on anemia of chronic inflammation -On 03/26/19 hemoglobin 7.5, later patient developed red bright blood per rectum with symptomatic weakness 1 unit of blood transfusion given -monitor with daily CBC Type 2 diabetes -Insulin sliding scale -Diabetes diet -FSBG AC/HS -hypoglycemia protocol OA/unsteady gait -According to the the patient, she has been having difficulty walking for the last 3 weeks. 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 SCDs and TEDs. VS,Fishbone, I+O VS, Fishbone, I+O Laboratory Tests 03/27/19 13:34 03/28/19 05:22 Vital Signs Date Time Temp Pulse Resp B/P (MAP) Pulse Ox O2 Delivery O2 Flow Rate FiO2 03/28/19 06:00 97.2 102 20 154/90 (111) 96 Room Air I&O- Last 24 Hours up to 6 AM 03/28/19 06:00 Intake Total 2460 ml Output Total 1100 ml Balance 1360 ml MILTON AGUIRRE MD Mar 28, 2019 12:23
[2019-03-28 14:10] VITALS: BP 130/62
[2019-03-28] MEDS: ATORVASTATIN 20 MG TAB PO SCH (21:14)
[2019-03-28 22:00] VITALS: BP 131/86
[2019-03-29 00:06] LABS: ANA (HEP2) Negative (.); ANCA-ATYPICAL <1:20 titer (Neg:<1:20); CYTOPLASMIC NEUTROP AB ANCA-C <1:20 titer (Neg:<1:20); PERINUCLEAR AB ANCA-P <1:20 titer (Neg:<1:20)
[2019-03-29] MEDS: IPRATROPIUM 0.5MG/ALBUTEROL 2.5MG INH SOL UD 3ML (DUONEB)(J7620) NEB SCH ×2 (01:53→07:44)
[2019-03-29] MEDS: BENZONATATE 100 MG CAP PO SCH (05:54)
[2019-03-29 06:00] VITALS: BP 136/88
[2019-03-29 06:10] LABS: HEMATOCRIT 27.5 % (36.0-47.0); HEMOGLOBIN 8.3 g/dl (12.0-15.5); MEAN CORPUSCULAR HEMOGLOBIN 24.9 pg (27.0-33.0); MEAN CORPUSCULAR HGB CONC 30.2 g/dl (32.0-36.5); MEAN CORPUSCULAR VOLUME 82.6 fl (80.0-96.0); PLATELET COUNT, AUTOMATED 105 10^3/uL (150-450); RED BLOOD COUNT 3.33 10^6/uL (4.00-5.40); WHITE BLOOD COUNT 4.2 10^3/uL (4.0-10.0)
[2019-03-29 06:25] LABS: BLOOD UREA NITROGEN 16 MG/DL (7-18); CALCIUM LEVEL 8.9 MG/DL (8.8-10.2); CARBON DIOXIDE LEVEL 24 MEQ/L (21-32); CHLORIDE LEVEL 110 MEQ/L (98-107); CREATININE FOR GFR 0.81 MG/DL (0.55-1.30); GLOMERULAR FILTRATION RATE > 60.0 (>39); GLUCOSE, FASTING 85 MG/DL (70-100); MAGNESIUM LEVEL 1.9 MG/DL (1.8-2.4); POTASSIUM SERUM 3.5 MEQ/L (3.5-5.1); SODIUM LEVEL 141 MEQ/L (136-145)
[2019-03-29] MEDS ORDERED: POTASSIUM CHLORIDE 10 MEQ SR TABLET PO ONE (07:00)
[2019-03-29] MEDS ORDERED: PRED50TA PO (07:26)
[2019-03-29] MEDS ORDERED: METF10004 PO (07:26)
[2019-03-29] MEDS: HumaLOG INSULIN (NovoLOG) PER UNIT SC SCH ×2 (07:30→12:00)
--- NOTE | 2019-03-29 07:44 | DS.PDOC ---
Discharge Summary General Date of Admission Mar 23, 2019 at 22:52 Date of Discharge 03/29/2019 Attending Physician: MILTON AGUIRRE MD Specialist/Consultants Involve: Yasmany Victor Discharge Summary PROCEDURES PERFORMED DURING STAY: None ADMITTING DIAGNOSES: 1. Metabolic encephalopathy DISCHARGE DIAGNOSES: 1. Inflammatory abdominal vasculitis 2. Metabolic encephalopathy 3. Lower gastrointestinal bleeding 4. COPD 5. Chronic hypertension 6. CHF 7. Diabetes mellitus 8. Dyslipidemia COMPLICATIONS/CHIEF COMPLAINT: Confusion HISTORY OF PRESENT ILLNESS: 73-year-old woman with a history of remote rectal CA, DM, CHF, COPD, hypertension and dyslipidemia who was brought in by her daughter after she found her somnolent and difficult to arouse and not answering questions appropriately. The patient reported feeling tired for 3 weeks and had been having difficulties walking without any falls., in the setting of a poor appetite, fevers, chills, 4 / 10 in severity right lower quadrant and left lower quadrant abdominal pain, bloating, and a dry cough. She otherwise denied episodes of nausea, emesis, diarrhea or constipation. HOSPITAL COURSE: 73 years old woman with remote history of rectal CA s/p resection and radiation approx 10y ago with last surveillance imaging and colonoscopy in 10/2018 without evidence of recurrence, diabetes, hypertension, CHF who presented to the hospital with altered mental status and started initially on ceftriaxone/azithro for empiric CAP coverage, but was later was found to have inflammation around the SHAHIDA on CT A/P with elevated inflammatory markers, ESR and CRP, c/f vasculitis. Vascular surgery was consulted and on evaluation, Dr Jorgensen recommended prednisolone 1 mg/kg/day with taper to 0.5 mg/kg/day after 4 weeks, then 15mg /kg and repeat CT scan of abdomen in 3 months, and rheumatology consultation upon discharge. Her symptoms improved after starting steroids and she was able to tolerate PO but her course was c/b acute hematochezia with acute on chronic anemia for which she received 1u of blood. Without gastroenterology inhouse this week, surgery was consulted for possible colonoscopy but after she maintained a stable H/H over a few days and resolution of hematochezia without further episodes over the next 3 days, we ultimately planned for close outpatient follow up with GI. She is now being discharged home on 100mg daily of prednisone for the next 28 days with plan for eventual taper per rheumatology with prompt referral to rheumatology with pending immunology work up, as well as close GI follow up. Of note, due to her being on high dose steroids, will increase her metformin to 1g BID from 500mg BID given her recent hyperglycemia with introduction of steroids inpatient. Of note, on working with PT she was recommended for home PT and for a rolling walker on discharge home. DISCHARGE MEDICATIONS: Please see below. ALLERGIES: Please see below. PHYSICAL EXAMINATION ON DISCHARGE: VITAL SIGNS: Please see below. GENERAL APPEARANCE: NAD, sitting up in chair, self grooming this morning without difficulty HEENT: Normocephalic, atraumatic, mucous members moist and pink CARDIOVASCULAR: RRR, no mrg, S1-S2 LUNGS: Clear to auscultation bilaterally ABDOMEN: Normoactive sounds, obese, soft, mild discomfort on deep palpation over lower abdomen, no guarding MUSCULOSKELETAL: range of motion is intact in all 4 extremities NEUROLOGICAL: cranial nerves II to 12 are grossly intact. Speech is not dysarthric LABORATORY DATA: Please see below. IMAGIN/26: CT A/P In the visualized lung bases there are bilateral calcified pleural plaques. The liver is unremarkable. Gallbladder is contracted. Spleen is enlarged with a length of 17 mL. There are several small calcified granulomas in the spleen. The adrenals and pancreas are unremarkable. There is no hydronephrosis bilaterally. There is a cyst in the mid posterior right kidney measuring approximately 1 cm in diameter. There are moderate atherosclerotic calcifications of the abdominal aorta without aneurysm. There is edema/inflammation surrounding the proximal inferior mesenteric artery. This suggests vasculitis or possibly arterial occlusion. I do not see significant periaortic adenopathy. No free air or free fluid is seen. No bowel wall thickening is seen. No pelvic mass is seen. The urinary bladder is mildly distended and grossly unremarkable. There are degenerative changes of the spine. IMPRESSION: Edema surrounding the proximal inferior mesenteric artery may represent vasculitis or possibly occlusion. No free air or free fluid. No bowel inflammation. Splenomegaly 03/23: CXR Interstitial fibrotic changes in the lung bases with calcified pleural plaques seen bilaterally. No consolidating infiltrate seen. PROGNOSIS: Good ACTIVITY: As tolerated DIET: 2g sodium, consistent carb DISCHARGE PLAN: Continue steroid plan as detailed in script until reviewed by rheumatology, and close follow up with gastroenterology DISPOSITION: Home with home PT with new rollator walker DISCHARGE INSTRUCTIONS: 1. Home with rheumatology referral for prompt evaluation within 1-2 weeks and gastroenterology follow up ITEMS TO FOLLOWUP ON ON OUTPATIENT: 1. Abdominal pain with evidence of a vasculitic process, with high dose steroids that will require a rheumatology directed taper or above noted plan if handled by PCP in the event that rheumatology referral delays. 2. Gastrointestinal bleeding 3. Glycemic control in the setting of steroids DISCHARGE CONDITION: Good TIME SPENT ON DISCHARGE: Greater than 30 minutes. Vital Signs/I&Os Vital Signs Date Time Temp Pulse Resp B/P (MAP) Pulse Ox O2 Delivery O2 Flow Rate FiO2 03/29/19 06:00 98.4 76 18 136/88 (104) 97 Room Air I&O- Last 24 Hours up to 6 AM 03/29/19 06:00 Intake Total 1700 ml Output Total 0 ml Balance 1700 ml Laboratory Data Labs 24H Laboratory Tests 2 03/28/19 11:39: Bedside Glucose (Misc Panel) 172H 03/28/19 17:07: Bedside Glucose (Misc Panel) 259H 03/28/19 20:54: Bedside Glucose (Misc Panel) 287H 03/29/19 05:40: Nucleated Red Blood Cells % (auto) 0.0, Anion Gap 7L, Glomerular Filtration Rate > 60.0, Calcium Level 8.9, Magnesium Level 1.9 CBC/BMP Laboratory Tests 03/29/19 05:40 FSBS Laboratory Tests Test 03/28/19 11:39 03/28/19 17:07 03/28/19 20:54 Range/Units Bedside Glucose (Misc Panel) 172 259 287 83-110 MG/DL Microbiology Microbiology 03/24/19 Stool Occult Blood (MOSIES) - Final, Complete 03/23/19 Respiratory Virus Panel (PCR) (MOISES) - Final, Complete 03/23/19 Urine Culture - Final, Complete 03/23/19 Blood Culture - Final, Complete NO GROWTH AFTER 5 DAYS 03/23/19 Blood Culture - Final, Complete NO GROWTH AFTER 5 DAYS Discharge Medications Scheduled Aspirin (Aspir 81) 81 Mg Tablet.dr, 81 MG PO DAILY, (Reported) Atorvastatin Calcium (Atorvastatin Calcium) 40 Mg Tablet, 40 MG PO QHS, (R eported) Cyanocobalamin (Vitamin B-12) (Vitamin B-12) 1,000 Mcg Capsule, 1,000 MCG PO DAILY, (Reported) Metformin HCl (Metformin HCl) 1,000 Mg Tablet, 1 TAB PO BID Omeprazole (Omeprazole) 40 Mg Capsule.dr, 40 MG PO DAILY, (Reported) Prednisone (Prednisone) 50 Mg Tablet, 100 MG PO DAILY Umeclidinium Brm/Vilanterol Tr (Anoro Ellipta 62.5-25 Mcg INH) 1 Each Blst.w.dev, 1 PUFF INH DAILY, (Reported) Scheduled PRN Acetaminophen (Tylenol Arthritis) 650 Mg Tablet.er, 650 MG PO Q8H PRN for PAIN, (Reported) Cetirizine HCl (Cetirizine HCl) 10 Mg Tablet, 10 MG PO DAILY PRN for ALLERGY SYMPTOMS, (Reported) Diclofenac Sodium (Voltaren) 100 Gm Gel..gram., 1 APLCT TOP DAILY PRN for PAIN, (Reported) APPLIES TO FEET Loperamide HCl (Loperamide) 2 Mg Capsule, 2 MG PO Q6H PRN for AFTER EACH LOOSE STOOL, (Reported) Nystatin (Nystatin Powder) 15 Gm Powder, 1 PUFF TOP BID PRN for RASH/ITCHING, (Reported) APPLIES TO GROIN Allergies Coded Allergies: No Known Allergies (Unverified , 10/24/18) MILTON AGUIRRE MD Mar 29, 2019 07:20
[2019-03-29] MEDS: CYANOCOBALAMIN 500 MCG TAB PO SCH (07:57)
[2019-03-29] MEDS: ASPIRIN 81 MG ENTERIC TAB PO SCH (07:57)
[2019-03-29] MEDS: PANTOPRAZOLE 40MG TAB (PROTONIX) PO SCH (07:58)
[2019-03-29] MEDS: predniSONE 50 MG TAB PO SCH (07:58)
[2019-03-29] MEDS: OMEPRAZOLE 20 MG CAP PO SCH (07:58)
[2019-03-29] MEDS: LEVEMIR (INSULIN DETEMIR) 1 UNITS/0.01ML SC SCH (07:58)
== END 2019-03-29 12:44 | disposition home or self-care (01) | DRG 545 ==
LOC: M ED 15:56 → M ED INP 22:52 → M MSPAV 23:59
PROVIDERS: ADMIT Internal Medicine; ATTEND Internal Medicine
PROC: 30233N1 Transfusion of Nonautologous Red Blood Cells into Peripheral Vein, Percutaneous Approach (ICD-10-PCS; principal; 2019-03-26)
DX: I77.6 Arteritis, unspecified (principal); G93.41 Metabolic encephalopathy; J44.1 Chronic obstructive pulmonary disease with (acute) exacerbation; I50.32 Chronic diastolic (congestive) heart failure; K92.2 Gastrointestinal hemorrhage, unspecified; R26.81 Unsteadiness on feet; M19.90 Unspecified osteoarthritis, unspecified site; E11.9 Type 2 diabetes mellitus without complications; R41.82 Altered mental status, unspecified; M50.20 Other cervical disc displacement, unspecified cervical region; E78.5 Hyperlipidemia, unspecified; G47.00 Insomnia, unspecified; Z87.891 Personal history of nicotine dependence; I11.0 Hypertensive heart disease with heart failure; D50.0 Iron deficiency anemia secondary to blood loss (chronic); E66.9 Obesity, unspecified; Z68.36 Body mass index [BMI] 36.0-36.9, adult; Z79.82 Long term (current) use of aspirin; Z79.899 Other long term (current) drug therapy; Z85.048 Personal history of other malignant neoplasm of rectum, rectosigmoid junction, and anus; Z92.3 Personal history of irradiation; D63.8 Anemia in other chronic diseases classified elsewhere

== ENCOUNTER 2019-04-06 10:55 | Outpatient (RCR) | payer MEDICARE ==
[~2019-04-06 10:55] MED LIST changes: +ALL10TAB29 PO; +B-12100010 PO; +LOPE1CAP5 PO; +METF10004 PO; +NYST1POW9 TOP; +OMEP-221 PO; +PRED50TA PO; +TYLE650T35 PO; +VOLT1GEL15 TOP
== END 2019-04-28 ==
LOC: M PT 10:55
PROVIDERS: ATTEND Nurse Practitioner Family
DX: R26.89 Other abnormalities of gait and mobility (principal)

== ENCOUNTER → 2019-04-09 | Outpatient (REF) | payer MEDICARE ==
[2019-04-09 14:24] LABS: BASO % 0.1 % (0.0-1.0); EOS % 0.3 % (0.0-3.0); HEMATOCRIT 36.7 % (36.0-47.0); HEMOGLOBIN 10.8 g/dl (12.0-15.5); LYMPH # 1.1 10^3/uL (1.5-5.0); LYMPH % 13.7 % (24.0-44.0); MEAN CORPUSCULAR HEMOGLOBIN 24.7 pg (27.0-33.0); MEAN CORPUSCULAR HGB CONC 29.4 g/dl (32.0-36.5); MONO # 0.2 10^3/uL (0.0-0.8); MONO % 2.9 % (0.0-5.0); NEUTROPHILS # 6.4 10^3/uL (1.5-8.5); NEUTROPHILS % 82.4 % (36.0-66.0); PLATELET COUNT, AUTOMATED 116 10^3/uL (150-450); RED BLOOD COUNT 4.37 10^6/uL (4.00-5.40); WHITE BLOOD COUNT 7.8 10^3/uL (4.0-10.0)
[2019-04-09 14:51] LABS: ALBUMIN 3.6 GM/DL (3.2-5.2); ALT/SGPT 39 U/L (12-78); BILIRUBIN,TOTAL 0.6 MG/DL (0.2-1.0); BLOOD UREA NITROGEN 34 MG/DL (7-18); C REACTIVE PROTEIN QUANTITATIV < 0.30 MG/DL (0.00-0.30); CALCIUM LEVEL 9.6 MG/DL (8.8-10.2); CARBON DIOXIDE LEVEL 29 MEQ/L (21-32); CHLORIDE LEVEL 102 MEQ/L (98-107); COMPLEMENT C3 122 MG/DL (90-180); COMPLEMENT C4 17 MG/DL (10-40); CREATININE FOR GFR 0.87 MG/DL (0.55-1.30); GLOMERULAR FILTRATION RATE > 60.0 (>39); GLUCOSE, FASTING 156 MG/DL (70-100); POTASSIUM SERUM 4.2 MEQ/L (3.5-5.1); RHEUMATOID FACTOR QUANT < 10.0 IU/ML (<15.0); SODIUM LEVEL 138 MEQ/L (136-145); TOTAL PROTEIN 7.5 GM/DL (6.4-8.2)
[2019-04-09 15:23] LABS: ERYTHROCYTE SEDIMENTATION RATE 15 mm/hr (0-30)
[2019-04-10 08:58] LABS: DRVV SCREEN 36.6 SEC
[2019-04-10 09:03] LABS: PTT LUPUS TYPE ANTICOAG SCREEN 0.9 (0-1.2)
== END ==
LOC: M SFHCRHEU 11:46
PROVIDERS: ATTEND Internal Medicine Rheumatology
DX: R10.9 Unspecified abdominal pain (principal)

== ENCOUNTER → 2019-05-01 | Outpatient (REF) | payer MEDICARE ==
[2019-05-01 11:42] LABS: ALBUMIN 3.5 GM/DL (3.2-5.2); ALT/SGPT 77 U/L (12-78); BILIRUBIN,TOTAL 0.5 MG/DL (0.2-1.0); BLOOD UREA NITROGEN 25 MG/DL (7-18); CALCIUM LEVEL 9.2 MG/DL (8.8-10.2); CARBON DIOXIDE LEVEL 30 MEQ/L (21-32); CHLORIDE LEVEL 104 MEQ/L (98-107); CREATININE FOR GFR 0.94 MG/DL (0.55-1.30); GLOMERULAR FILTRATION RATE > 60.0 (>39); GLUCOSE, FASTING 200 MG/DL (70-100); POTASSIUM SERUM 3.6 MEQ/L (3.5-5.1); SODIUM LEVEL 144 MEQ/L (136-145); TOTAL PROTEIN 7.2 GM/DL (6.4-8.2)
[2019-05-01 11:55] LABS: TOTAL 25(OH) VITAMIN D 30.5 NG/ML (30.0-100.0)
== END ==
LOC: M SFHCPLAZ 08:17
PROVIDERS: ATTEND Nurse Practitioner Family
DX: E11.9 Type 2 diabetes mellitus without complications (principal); E78.5 Hyperlipidemia, unspecified; E55.9 Vitamin D deficiency, unspecified

== ENCOUNTER → 2019-06-07 | Outpatient (CLI) | payer MEDICARE ==
[2019-06-07 14:35] LABS: HEMOGLOBIN A1c 8.1 %
[2019-06-07 14:52] LABS: ALBUMIN 3.6 GM/DL (3.2-5.2); ALT/SGPT 30 U/L (12-78); BILIRUBIN,TOTAL 0.6 MG/DL (0.2-1.0); BLOOD UREA NITROGEN 5 MG/DL (7-18); CALCIUM LEVEL 9.1 MG/DL (8.8-10.2); CARBON DIOXIDE LEVEL 26 MEQ/L (21-32); CHLORIDE LEVEL 104 MEQ/L (98-107); CHOLESTEROL LEVEL 128 MG/DL (<200); CHOLESTEROL RISK RATIO 5.565 (<5); CREATININE FOR GFR 0.76 MG/DL (0.55-1.30); GLOMERULAR FILTRATION RATE > 60.0 (>39); GLUCOSE, FASTING 143 MG/DL (70-100); HDL CHOLESTEROL 23 MG/DL (>40); LDL CHOLESTEROL 63 MG/DL (<100); NON-HDL-C 105 MG/DL; POTASSIUM SERUM 3.8 MEQ/L (3.5-5.1); SODIUM LEVEL 139 MEQ/L (136-145); TOTAL PROTEIN 7.5 GM/DL (6.4-8.2); TRIGLYCERIDES LEVEL 208 MG/DL (<150)
== END ==
LOC: M PLALAB 10:12
PROVIDERS: ATTEND Nurse Practitioner Family
DX: E11.9 Type 2 diabetes mellitus without complications (principal); E78.5 Hyperlipidemia, unspecified; E55.9 Vitamin D deficiency, unspecified

== ENCOUNTER → 2019-06-08 | Outpatient (REF) | payer MEDICARE ==
[2019-06-08 19:30] LABS: CREATININE, URINE 84.8 MG/DL; MALB URINE SIEMENS 19.9 MG/L; MAU/CREAT RATIO 23.4 MCG/MG (0.0-30.0)
== END ==
LOC: M SFHCPLAZ 17:16
PROVIDERS: ATTEND Nurse Practitioner Family
DX: E11.9 Type 2 diabetes mellitus without complications (principal); E78.5 Hyperlipidemia, unspecified; E55.9 Vitamin D deficiency, unspecified

== ENCOUNTER → 2019-10-01 | Outpatient (REF) | payer MEDICARE ==
[2019-10-01 14:24] LABS: ALBUMIN 3.7 GM/DL (3.2-5.2); ALT/SGPT 28 U/L (12-78); BILIRUBIN,TOTAL 0.3 MG/DL (0.2-1.0); BLOOD UREA NITROGEN 25 MG/DL (7-18); CALCIUM LEVEL 9.1 MG/DL (8.8-10.2); CARBON DIOXIDE LEVEL 29 MEQ/L (21-32); CHLORIDE LEVEL 102 MEQ/L (98-107); CHOLESTEROL LEVEL 142 MG/DL (<200); CHOLESTEROL RISK RATIO 3.641 (<5); CREATININE FOR GFR 0.78 MG/DL (0.55-1.30); GLOMERULAR FILTRATION RATE > 60.0 (>39); GLUCOSE, FASTING 124 MG/DL (70-100); HDL CHOLESTEROL 39 MG/DL (>40); LDL CHOLESTEROL 67 MG/DL (<100); NON-HDL-C 103 MG/DL; POTASSIUM SERUM 4.1 MEQ/L (3.5-5.1); SODIUM LEVEL 139 MEQ/L (136-145); TOTAL PROTEIN 8.2 GM/DL (6.4-8.2); TRIGLYCERIDES LEVEL 182 MG/DL (<150)
[2019-10-01 14:33] LABS: TOTAL 25(OH) VITAMIN D 28.7 NG/ML (30.0-100.0)
[2019-10-01 14:44] LABS: HEMOGLOBIN A1c 6.7 %
[2019-10-01 14:55] LABS: CREATININE, URINE 33.5 MG/DL; MALB URINE SIEMENS 25.8 MG/L
== END ==
LOC: M PLALAB 09:27
PROVIDERS: ATTEND Nurse Practitioner Family
DX: E11.65 Type 2 diabetes mellitus with hyperglycemia (principal); E78.2 Mixed hyperlipidemia; E55.9 Vitamin D deficiency, unspecified

== ENCOUNTER → 2020-03-17 | Outpatient (REF) | payer MEDICARE ==
[~2020-03-17] MED LIST changes: +ACET650T61 PO; -ALL10TAB29 PO; +ASPI-161 PO; -ASPI81TA85 PO; +ASPI81TA86 PO; +CETI-24 PO; +FERR32TA PO; +METF-877 PO; +PANT40TA29 PO; +PROAAER10 INH; -TYLE650T35 PO
[2020-03-17 14:56] LABS: ALBUMIN 3.7 GM/DL (3.2-5.2); ALT/SGPT 22 U/L (12-78); BILIRUBIN,TOTAL 0.5 MG/DL (0.2-1.0); BLOOD UREA NITROGEN 17 MG/DL (7-18); CALCIUM LEVEL 8.8 MG/DL (8.8-10.2); CARBON DIOXIDE LEVEL 27 MEQ/L (21-32); CHLORIDE LEVEL 103 MEQ/L (98-107); CREATININE FOR GFR 0.77 MG/DL (0.55-1.30); GLOMERULAR FILTRATION RATE > 60.0 (>39); GLUCOSE, FASTING 98 MG/DL (70-100); POTASSIUM SERUM 4.5 MEQ/L (3.5-5.1); SODIUM LEVEL 137 MEQ/L (136-145); TOTAL PROTEIN 8.1 GM/DL (6.4-8.2)
[2020-03-17 14:57] LABS: HEMOGLOBIN A1c 6.4 %
[2020-03-17 15:05] LABS: TOTAL 25(OH) VITAMIN D 46.5 NG/ML (30.0-100.0)
== END ==
LOC: M PLALAB 11:08
PROVIDERS: ATTEND Nurse Practitioner Family
DX: E11.9 Type 2 diabetes mellitus without complications (principal); E55.9 Vitamin D deficiency, unspecified

== ENCOUNTER → 2020-03-18 | Outpatient (REF) | payer MEDICARE ==
[~2020-03-18] MED LIST changes: -ASPI-161 PO; -FERR32TA PO; -METF-877 PO; -PANT40TA29 PO; -PROAAER10 INH
[2020-03-18 14:42] LABS: MAU/CREAT RATIO 32.7 MCG/MG (0.0-30.0)
== END ==
LOC: M SFHCPLAZ 13:19
PROVIDERS: ATTEND Nurse Practitioner Family
DX: E11.9 Type 2 diabetes mellitus without complications (principal)

== ENCOUNTER 2020-04-29 17:04 | Inpatient (IN) | payer MEDICARE ==
[~2020-04-29] VITALS: Ht 167.6 cm; Wt 98.9 kg
[~2020-04-29 17:04] MED LIST changes: -ASPI-161 PO; -METF-877 PO; -PROAAER10 INH
[2020-04-29 18:34] LABS: BASO % 0.3 % (0.0-1.0); EOS # 0.1 10^3/uL (0.0-0.5); EOS % 2.8 % (0.0-3.0); HEMATOCRIT 22.2 % (36.0-47.0); LYMPH # 0.7 10^3/uL (1.5-5.0); LYMPH % 18.9 % (24.0-44.0); MEAN CORPUSCULAR HEMOGLOBIN 19.2 pg (27.0-33.0); MEAN CORPUSCULAR HGB CONC 25.7 g/dl (32.0-36.5); MEAN CORPUSCULAR VOLUME 74.7 fl (80.0-96.0); MONO # 0.3 10^3/uL (0.0-0.8); MONO % 9.6 % (0.0-5.0); NEUTROPHILS # 2.4 10^3/uL (1.5-8.5); NEUTROPHILS % 68.1 % (36.0-66.0); RED BLOOD COUNT 2.97 10^6/uL (4.00-5.40); WHITE BLOOD COUNT 3.5 10^3/uL (4.0-10.0)
[2020-04-29 18:37] LABS: PLATELET COUNT, AUTOMATED 84 10^3/uL (150-450)
[2020-04-29 18:40] LABS: HEMOGLOBIN 5.7 g/dl (12.0-15.5)
[2020-04-29 18:42] LABS: INR 1.06
[2020-04-29 18:58] LABS: ALBUMIN 3.4 GM/DL (3.2-5.2); ALT/SGPT 27 U/L (12-78); BILIRUBIN,DIRECT 0.1 MG/DL (0.0-0.2); BILIRUBIN,TOTAL 0.4 MG/DL (0.2-1.0); BLOOD UREA NITROGEN 11 MG/DL (7-18); CALCIUM LEVEL 8.3 MG/DL (8.8-10.2); CARBON DIOXIDE LEVEL 27 MEQ/L (21-32); CHLORIDE LEVEL 107 MEQ/L (98-107); CK-MB VALUE MASS < 1.0 NG/ML (<3.6); CPK CREATINE PHOSPHOKINASE 43 U/L (26-192); CREATININE FOR GFR 0.85 MG/DL (0.55-1.30); GLOMERULAR FILTRATION RATE > 60.0 (>39); GLUCOSE, FASTING 169 MG/DL (70-100); LIPASE 141 U/L (73-393); MB/CK RELATIVE INDEX 2.33 (< OR =4); POTASSIUM SERUM 3.8 MEQ/L (3.5-5.1); SODIUM LEVEL 139 MEQ/L (136-145); TOTAL PROTEIN 7.5 GM/DL (6.4-8.2); TROPONIN I < 0.02 NG/ML (< 0.10)
[2020-04-29] MEDS ORDERED: ISOVUE-370 76% 100ML VIAL As Ordered ONE (19:12)
--- NOTE | 2020-04-29 20:21 | REPVR ---
PROCEDURE INFORMATION: Exam: CT Abdomen And Pelvis With Contrast Exam date and time: 04/29/2020 7:25 PM Age: 74 years old Clinical indication: Abdominal pain; Localized; Lower; Prior surgery; Surgery date: 6+ months; Surgery type: CA of anus and hemorrhoids; Additional info: Lower abdominal pain; Gi bleeding TECHNIQUE: Imaging protocol: Computed tomography of the abdomen and pelvis with intravenous contrast. Radiation optimization: All CT scans at this facility use at least one of these dose optimization techniques: automated exposure control; mA and/or kV adjustment per patient size (includes targeted exams where dose is matched to clinical indication); or iterative reconstruction. Contrast material: ISOVUE 370; Contrast volume: 100 ml; Contrast route: INTRAVENOUS (IV); COMPARISON: CT ABD PELVIS WITH CONTRAST 03/24/2019 2:12 PM FINDINGS: Lungs: There is mild atelectasis in the right middle lobe. Pleural space: There are calcified bilateral pleural plaques, indicating prior asbestos exposure. The pleural spaces were not fully imaged. Heart: No cardiomegaly or pericardial effusion. Liver: The liver has a nodular contour, which can be seen with cirrhosis. No liver lesion is seen. No hepatomegaly is noted. Gallbladder and bile ducts: The gallbladder is contracted. No calcified stones are seen in the gallbladder. There is gallbladder wall thickening and/or pericholecystic fluid. No dilation of the bile ducts is noted. No calcified stones are seen in the common bile duct. Pancreas: Normal. No dilation of the main pancreatic duct is noted. There is no inflammatory fat stranding around the pancreas to suggest acute pancreatitis. Spleen: There are calcified granulomas in the spleen. No splenic lesion is noted. The spleen is enlarged and measures 15 cm. Adrenal glands: Normal. No adrenal mass is noted. Kidneys and ureters: There is a 15 mm benign-appearing simple cyst in the interpolar region of the right kidney, which is unchanged compared to the prior CT abdomen and pelvis on 03/24/2019 and for which further imaging evaluation and follow-up is not recommended. The left kidney is unremarkable. No stones are noted in the kidneys or ureters. There is no hydronephrosis or hydroureter. There are no wedge-shaped areas of low attenuation in the kidneys to suggest pyelonephritis. There is no renal abscess or perinephric fluid collection. Stomach and bowel: There is high-density material in the stomach, which likely represents ingested material. The small bowel is unremarkable. There is no evidence for a bowel obstruction, diverticulosis, diverticulitis, colitis, perforated viscus, pneumatosis intestinalis, intussusception, or volvulus. There is thickening of the wall of the rectum and anus. Appendix: Normal. There is no evidence for appendicitis. Intraperitoneal space: No ascites. No fluid collection. No free air. Retroperitoneal space: No fluid collection. No mass. Vasculature: The abdominal aorta is patent, normal in caliber, and there is no dissection. The iliac arteries, common femoral arteries, renal arteries, celiac artery, superior mesenteric artery, and inferior mesenteric artery are patent. There are moderate atherosclerotic calcifications. The iliac veins, inferior vena cava, hepatic veins, portal veins, splenic vein, superior mesenteric vein, inferior mesenteric vein, and renal veins are patent. There is chronic edema surrounding the inferior mesenteric artery that is similar in appearance compared to the prior CT abdomen and pelvis on 03/24/2020. Lymph nodes: There is periportal lymphadenopathy that is stable compared to the prior CT abdomen and pelvis on 03/24/2019. Urinary bladder: The distended urinary bladder is normal in appearance. No stones or masses are seen in the bladder. Reproductive: There has been a hysterectomy. Bones/joints: There is no acute fracture or dislocation. There is patchy and serpiginous sclerosis in the left femoral head that has developed since the prior CT abdomen and pelvis on 03/24/2019 and compatible with osteonecrosis. No subchondral fracture line or collapse of the articular surface of the left femoral head is noted. There are degenerative changes involving the lumbar spine. There is a sclerotic lesion in the right side of the sacrum, which is unchanged compared to the prior CT abdomen and pelvis on 03/24/2019 and likely represents a bone island. Soft tissues: There is diastasis of the rectus abdominus muscles and laxity and attenuation of the linea alba. There is a small fat containing umbilical hernia. There is edema in the subcutaneous tissues in the anterior abdominal wall with overlying skin thickening that was also present in the prior CT abdomen and pelvis on 03/24/2019. There is nonspecific edema in the subcutaneous tissues posteriorly along the midline of the lumbar spine. No soft tissue fluid collection is noted. Other findings: There is presacral edema. IMPRESSION: 1. Thickening of the wall of the rectum and anus, which may represent proctitis and anusitus, post treatment changes, or neoplasm. 2. Nodular contour of the liver, which can be seen with cirrhosis. 3. Splenomegaly. 4. Gallbladder wall thickening and/or pericholecystic fluid. 5. Chronic edema surrounding the inferior mesenteric artery that is similar in appearance compared to the prior CT abdomen and pelvis on 03/24/2020. 6. Calcified bilateral pleural plaques, indicating prior asbestos exposure. 7. Small fat containing umbilical hernia. 8. 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 Electronically signed by: Balaji Felix On 04/29/2020 20:22:05 PM
[2020-04-29 21:03] VITALS: BP 104/53
[2020-04-29 21:18] VITALS: BP 103/51
[2020-04-29 21:29] LABS: FERRITIN 4 NG/ML (8-252); IRON (FE) 16 UG/DL (50-170); TOTAL IRON BINDING CAPACITY 402 UG/DL (250-450)
[2020-04-29] MEDS ORDERED: PROAAER10 INH (21:54)
[2020-04-29] MEDS ORDERED: ASPI-161 PO (21:54)
[2020-04-29] MEDS ORDERED: METF-877 PO (21:54)
[2020-04-29] MEDS ORDERED: CETIRIZINE (ZyrTEC) 10 MG TAB PO PRN (22:00)
[2020-04-29] MEDS ORDERED: ACETAMINOPHEN TAB 650MG DOSE (2X325MG) PO PRN (22:00)
[2020-04-29] MEDS ORDERED: NYSTATIN 100,000 UNITS/GM TOPICAL PWD 15 GM TOP PRN (22:00)
[2020-04-29 22:18] VITALS: BP 110/58
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
[2020-04-29] MEDS ORDERED: DEXTROSE 50% 50 ML SYRINGE IV PRN (22:45)
[2020-04-29] MEDS ORDERED: GLUCOSE 4GM CHEW TABLET PO PRN (22:45)
[2020-04-29] MEDS ORDERED: GLUCAGON INJ 1MG VIAL SC PRN (22:45)
[2020-04-29 23:04] LABS: VITAMIN B12 LEVEL 557 PG/ML (247-911)
[2020-04-29 23:23] VITALS: BP 118/58
[2020-04-30] VITALS (8 sets, daily range): BP systolic 127–150; BP diastolic 59–72
[2020-04-30] MEDS: HumaLOG INSULIN (NovoLOG) PER UNIT SC SCH ×5 (00:42→20:56)
[2020-04-30 04:36] LABS: HEMATOCRIT 27.2 % (36.0-47.0); HEMOGLOBIN 7.6 g/dl (12.0-15.5); MEAN CORPUSCULAR HEMOGLOBIN 21.3 pg (27.0-33.0); MEAN CORPUSCULAR HGB CONC 27.9 g/dl (32.0-36.5); MEAN CORPUSCULAR VOLUME 76.2 fl (80.0-96.0); PLATELET COUNT, AUTOMATED 77 10^3/uL (150-450); RED BLOOD COUNT 3.57 10^6/uL (4.00-5.40); WHITE BLOOD COUNT 4.4 10^3/uL (4.0-10.0)
[2020-04-30 04:59] LABS: ALBUMIN 3.1 GM/DL (3.2-5.2); ALT/SGPT 21 U/L (12-78); BILIRUBIN,TOTAL 0.7 MG/DL (0.2-1.0); BLOOD UREA NITROGEN 8 MG/DL (7-18); CALCIUM LEVEL 8.1 MG/DL (8.8-10.2); CARBON DIOXIDE LEVEL 28 MEQ/L (21-32); CHLORIDE LEVEL 107 MEQ/L (98-107); CREATININE FOR GFR 0.72 MG/DL (0.55-1.30); GLOMERULAR FILTRATION RATE > 60.0 (>39); GLUCOSE, FASTING 110 MG/DL (70-100); MAGNESIUM LEVEL 1.9 MG/DL (1.8-2.4); POTASSIUM SERUM 4.1 MEQ/L (3.5-5.1); SODIUM LEVEL 139 MEQ/L (136-145); TOTAL PROTEIN 7.2 GM/DL (6.4-8.2)
[2020-04-30] MEDS: TIOTROPIUM INHALER/CAPSULE (SPIRIVA) INH SCH (07:32)
[2020-04-30] MEDS: FORMOTEROL FUMARATE 20 MCG/2 ML INHALATION SOLUTION (PERFOROMIST) INH SCH ×2 (07:38→20:33)
[2020-04-30 08:22] LABS: HEMATOCRIT 26.6 % (36.0-47.0); HEMOGLOBIN 7.5 g/dl (12.0-15.5)
[2020-04-30] MEDS ORDERED: ADVAIR HFA 45/21MCG INHALER INH SCH (09:00)
[2020-04-30] MEDS ORDERED: OMEPRAZOLE 20 MG CAP PO SCH (09:00)
[2020-04-30] MEDS ORDERED: SLF 3 ML SYR IV PRN (12:00)
[2020-04-30] MEDS ORDERED: IRON SUCROSE 100MG 5ML VIAL (J1756 PER 1MG) IV ONE (12:00)
--- NOTE | 2020-04-30 13:33 | IPNPDOC ---
Text Note Date of Service The patient was seen on 04/30/20. NOTE SUBJECTIVE: Ms. Farooq was seen and examined at bedside this morning. There were no acute changes overnight besides some trouble sleeping. She states she cant attenuator how she is feeling post RBC transfusion since she has been lying in bed since then. She admits to right and left lower abdominal pain. Pt had a bowel movement this morning which had normal color stools and bright red blood. She denies headache, fevers, edema, blurry vision, dizziness and light headedness. OBJECTIVE: VITAL SIGNS: Please see below. CONSTITUTIONAL: Pt is lying comfortably in bed. No respiratory distress. Pt appears pale. HEENT: PERRL. Conjunctival pallor noted. No lymphadenopathy noted. Moist oral mucus membranes. CV: S1S2 present. RRR. No murmurs, rubs or gallops. RESPIRATORY: Clear to auscultation in all lung samaniego. No wheezes, rales or rhonchi appreciated. ABDOMEN: Tender to palpation in right and left lower quadrants. Diastasis recti appreciated. Bowel sounds normoactive in all 4 quadrants. EXTREMITIES: Trace edema in bilateral LE. Pulses 3+ NEUROLOGICAL: No obvious focal neurologic deficits. PSYCHIATRIC: Normal mood and affect. ASSESSMENT/PLAN: Ms. Farooq is a 74 y/o female with PMH of SCC of anus s/p chemo/radiation in 2007, radiation proctitis, and diverticulosis who presents with one year off and on black tarry stools and BRBPR found to have hemoglobin 5.7 concerning for acute GI bleed vs. bone marrow pathology vs. neoplasm reoccurrence. #Acute anemia: Concerning for GI bleed vs. bone marrow dysfunction vs neoplasm reoccurrence. - Hgb found to be 5.7 on admission. Hgb of 7.5 after receiving 2 units of PRBCs. - Trending H/H Q6H. - GI consult placed for colonoscopy and EGD. - Absolute reticulocyte count measured at 1.5% indicating hypo-proliferation. - Iron level found to be low at 16, TIBC normal at 402, ferritin low at 4 - IV iron transfusion 200 mg - IV Protonix 40 mg BID - Stool occult ordered and pending. #Thrombocytopenia secondary to bone marrow pathology following chemotherapy vs. cirrhosis vs. blood loss - Continue to trend #Hx of anal SCC with radiation proctitis - May be related to acute bleed - Pt sees Dr. Camilo in outpatient setting. - CT abdomen showed thickening of the wall of the rectum and anus, which may represent proctitis and anusitus, post treatment changes, or neoplasm. #NIDDM2: Last A1c found to be 6.4% - Hold metformin - Consistent carbohydrate diet - Sliding-scale insulin with hypoglycemic control #GERD - Given IV PPIs noted above #HLD - Continue Atorvastatin 40mg PO daily #COPD vs. other obstructive disease - Pt recently seen by pulmonology and started on Anoro Ellipta (not on formulary) - Start Advair + Formoterol inhaler BID - Tiotropium Cobb inhalation DVT PROPHYLAXIS: TEDs and Sequentials DISPOSITION: Pending GI consult and clinical improvement VS,Lino, I+O VS, Lino, I+O Laboratory Tests 04/29/20 18:06 04/30/20 04:18 04/30/20 08:00 Vital Signs Date Time Temp Pulse Resp B/P (MAP) Pulse Ox O2 Delivery O2 Flow Rate FiO2 04/30/20 12:12 97.9 80 20 150/72 (98) 96 Room Air I&O- Last 24 Hours up to 6 AM 04/30/20 06:00 Intake Total 740 ml Output Total 450 ml Balance 290 ml GME ATTESTATION GME ATTESTATION My faculty preceptor for this patient encounter was physically present during the encounter and was fully available. All aspects of the patient interview, examination, medical decision making process, and medical care plan development were reviewed and approved by the faculty preceptor. The faculty preceptor is aware and concurs with the plan as stated in the body of this note and will attest to such by his/her cosignature. ATTENDING NOTE Pt was seen and examined at the bedside with the residents/students at the bedside by me personally. Agree with the assessment and plan. MARCELA STOUT D.O. Apr 30, 2020 13:32 MICHAEL WOODS MD May 05, 2020 11:19
[2020-04-30] MEDS ORDERED: IRON SUCROSE 200 MG in NS 100 ML OVER 1 HR IV ONE (14:00)
[2020-04-30] MEDS: SLF 3 ML SYR IV SCH ×2 (14:02→20:56)
[2020-04-30 14:10] LABS: HEMATOCRIT 25.5 % (36.0-47.0); HEMOGLOBIN 7.2 g/dl (12.0-15.5)
[2020-04-30] MEDS ORDERED: MOM 30ML SUSPENSION UDC PO ONE (16:15)
[2020-04-30] MEDS ORDERED: POLYETHYLENE GLYCOL (MIRALAX) 238GM BOTTLE PO ONE (17:00)
[2020-04-30 20:01] LABS: HEMATOCRIT 28.7 % (36.0-47.0); HEMOGLOBIN 7.9 g/dl (12.0-15.5)
[2020-04-30] MEDS: ATORVASTATIN 20 MG TAB PO SCH (20:56)
[2020-04-30] MEDS: PANTOPRAZOLE 40MG VIAL (C9113 PER 1) IV SCH (20:56)
[2020-05-01] VITALS (8 sets, daily range): BP systolic 129–161; BP diastolic 62–72
[2020-05-01] MEDS: SLF 3 ML SYR IV SCH ×3 (04:57→22:49)
[2020-05-01] MEDS ORDERED: POLYETHYLENE GLYCOL (MIRALAX) 238GM BOTTLE PO ONE (05:00)
[2020-05-01 05:12] LABS: HEMATOCRIT 26.2 % (36.0-47.0); HEMOGLOBIN 7.2 g/dl (12.0-15.5); MEAN CORPUSCULAR HEMOGLOBIN 21.2 pg (27.0-33.0); MEAN CORPUSCULAR HGB CONC 27.5 g/dl (32.0-36.5); MEAN CORPUSCULAR VOLUME 77.3 fl (80.0-96.0); RED BLOOD COUNT 3.39 10^6/uL (4.00-5.40); WHITE BLOOD COUNT 4.2 10^3/uL (4.0-10.0)
[2020-05-01 05:18] LABS: PLATELET COUNT, AUTOMATED 79 10^3/uL (150-450)
[2020-05-01 05:44] LABS: ALBUMIN 3.3 GM/DL (3.2-5.2); ALT/SGPT 21 U/L (12-78); BILIRUBIN,TOTAL 0.7 MG/DL (0.2-1.0); BLOOD UREA NITROGEN 9 MG/DL (7-18); CALCIUM LEVEL 8.5 MG/DL (8.8-10.2); CARBON DIOXIDE LEVEL 29 MEQ/L (21-32); CHLORIDE LEVEL 105 MEQ/L (98-107); CREATININE FOR GFR 0.84 MG/DL (0.55-1.30); GLOMERULAR FILTRATION RATE > 60.0 (>39); GLUCOSE, FASTING 119 MG/DL (70-100); POTASSIUM SERUM 3.8 MEQ/L (3.5-5.1); SODIUM LEVEL 139 MEQ/L (136-145); TOTAL PROTEIN 7.2 GM/DL (6.4-8.2)
[2020-05-01] MEDS: TIOTROPIUM INHALER/CAPSULE (SPIRIVA) INH SCH (07:20)
[2020-05-01] MEDS: FORMOTEROL FUMARATE 20 MCG/2 ML INHALATION SOLUTION (PERFOROMIST) INH SCH ×2 (07:20→19:10)
[2020-05-01] MEDS: HumaLOG INSULIN (NovoLOG) PER UNIT SC SCH ×4 (08:52→21:00)
[2020-05-01] MEDS: PANTOPRAZOLE 40MG VIAL (C9113 PER 1) IV SCH ×2 (08:52→21:57)
--- NOTE | 2020-05-01 15:37 | IPNPDOC ---
Text Note Date of Service The patient was seen on 05/01/20. NOTE SUBJECTIVE: Ms. Farooq was seen and examined at bed side this morning. There were no acute changes overnight. Pt is prepped for a colonoscopy and EGD today. Pt admits to some bothersome abdominal pain which she attributes to the colonoscopy preparation and some fatigue. Pt denies dizziness and lightheadedness. OBJECTIVE: VITAL SIGNS: Please see below. CONSTITUTIONAL: Pt is lying comfortably in bed. No respiratory distress. Pt appears pale. HEENT: PERRL. Conjunctival pallor noted. No lymphadenopathy noted. Moist oral mucus membranes. CV: S1S2 present. RRR. No murmurs, rubs or gallops. RESPIRATORY: Clear to auscultation in all lung samaniego. No wheezes, rales or rhonchi appreciated. ABDOMEN: Soft, nontender abdomen to palpation. Diastasis recti appreciated. Bowel sounds normoactive in all 4 quadrants. EXTREMITIES: Trace edema in bilateral LE. Pulses 3+ NEUROLOGICAL: No obvious focal neurologic deficits. PSYCHIATRIC: Normal mood and affect. ASSESSMENT: Ms. Farooq is a 74 y/o female with PMH of SCC of anus s/p chemo/radiation in 2007, radiation proctitis, and diverticulosis who presents with one year off and on black tarry stools and BRBPR found to have hemoglobin 5.7 concerning for acute GI bleed vs. bone marrow pathology vs. neoplasm reoccurrence. PLAN: #Acute anemia: Concerning for GI bleed vs. bone marrow vs neoplasm reoccurrence. - Hgb found to be 5.7 on admission. Hgb of 7.5 after receiving 2 units of PRBCs. - Trending H/H Q12H. Most recent Hgb of 7.2 - GI consult placed with Dr. Craig. Pending colonoscopy and EGD. - Absolute reticulocyte count measured at 1.5% indicating hypo-proliferation. - Iron level found to be low at 16, TIBC normal at 402, ferritin low at 4 - IV iron transfusion 200 mg - IV Protonix 40 mg BID - Stool occult blood positive. #Thrombocytopenia secondary to bone marrow pathology following chemotherapy vs. cirrhosis vs. blood loss - Continue to trend. Plt count today 79. - Liver ultrasound ordered due to concern for cirrhosis. #Hx of anal SCC with radiation proctitis - May be related to acute bleed - Pt sees Dr. Camilo in outpatient setting. - CT abdomen showed thickening of the wall of the rectum and anus, which may represent proctitis and anusitus, post treatment changes, or neoplasm. #NIDDM2: Last A1c found to be 6.4% - Hold metformin - Consistent carbohydrate diet - Sliding-scale insulin with hypoglycemic control #GERD - Given IV PPIs noted above #HLD - Continue Atorvastatin 40mg PO daily #COPD vs. other obstructive disease - Pt recently seen by pulmonology and started on Anoro Ellipta - Start Advair + Formoterol inhaler BID - Tiotropium [place] inhalation DVT PROPHYLAXIS: TEDs and Sequentials DISPOSITION: Pending colonoscopy, EGD and clinical improvement VS,Lino, I+O VS, Lino, I+O Laboratory Tests 04/30/20 19:46 05/01/20 04:47 Vital Signs Date Time Temp Pulse Resp B/P (MAP) Pulse Ox O2 Delivery O2 Flow Rate FiO2 05/01/20 14:20 98.3 84 18 140/63 (88) 97 Room Air I&O- Last 24 Hours up to 6 AM 05/01/20 06:00 Intake Total 1360 ml Output Total 100 ml Balance 1260 ml MARCELA STOUT D.O. May 01, 2020 15:37
--- NOTE | 2020-05-01 15:49 | ROOR ---
Patient Name: Anne Farooq Procedure Date: 05/01/2020 3:29 PM Date of : 1945 Age: 74 Room: [facility] Gender: Female Note Status: Finalized Procedure: Upper GI endoscopy Indications: Iron deficiency anemia secondary to chronic blood loss, Hematochezia, Follow-up of Saldana's esophagus Providers: Denis MARADIAGA MD Referring MD: 2. Inpatient 2. Inpatient Requesting Provider: Medicines: Monitored Anesthesia Care Complications: No immediate complications. Procedure: Pre-Anesthesia Assessment: - The heart rate, respiratory rate, oxygen saturations, blood pressure, adequacy of pulmonary ventilation, and response to care were monitored throughout the procedure. The Endoscope was introduced through the mouth, and advanced to the second part of duodenum. The upper GI endoscopy was accomplished without difficulty. The patient tolerated the procedure well. Findings: The Z-line was variable and was found at the gastroesophageal junction. This was biopsied with a cold forceps for histology. A single 7 mm semi-sessile polyp with no bleeding was found in the gastric body. Biopsies were taken with a cold forceps for histology. To prevent bleeding after the biopsy, two hemostatic clips were successfully placed. The exam was otherwise without abnormality. Impression: - Z-line variable, at the gastroesophageal junction. Biopsied. - A single gastric polyp. Biopsied. Clips were placed. - The examination was otherwise normal. Recommendation: - Await pathology results. - Repeat upper endoscopy depending on pathology. Procedure Code(s): --- Professional --- 40294, Esophagogastroduodenoscopy, flexible, transoral; with biopsy, single or multiple Diagnosis Code(s): --- Professional --- K92.1, Melena (includes Hematochezia) D50.0, Iron deficiency anemia secondary to blood loss (chronic) K22.70, Saldana's esophagus without dysplasia K31.7, Polyp of stomach and duodenum K22.8, Other specified diseases of esophagus CPT copyright 2019 [employer]. All rights reserved. The codes documented in this report are preliminary and upon artificial insemination technician review may be revised to meet current compliance requirements. Denis Maradiaga MD Denis MARADIAGA MD 05/01/2020 3:48:38 PM Electronically signed by Denis MARADIAGA MD Number of Addenda: 0 Note Initiated On: 05/01/2020 3:29 PM Estimated Blood Loss: Estimated blood loss: none.
--- NOTE | 2020-05-01 17:41 | ROOR ---
Patient Name: Anne Farooq Procedure Date: 05/01/2020 3:30 PM Date of : 1945 Age: 74 Room: [facility] Gender: Female Note Status: Finalized Procedure: Colonoscopy Indications: Hematochezia Providers: Denis CRAIG MD Referring MD: 2. Inpatient 2. Inpatient Requesting Provider: Medicines: Monitored Anesthesia Care Complications: No immediate complications. Procedure: Pre-Anesthesia Assessment: - The heart rate, respiratory rate, oxygen saturations, blood pressure, adequacy of pulmonary ventilation, and response to care were monitored throughout the procedure. The Colonoscope was introduced through the anus and advanced to 10 cm into the ileum. The colonoscopy was performed without difficulty. The patient tolerated the procedure well. The quality of the bowel preparation was fair. Findings: The perianal exam findings include leathery, fibrotic, thick fragile perianal skin related to prior radiation. The digital rectal exam findings include anal stricture and rectal stricture. Pertinent negatives include no anal lesion or abnormality. Scattered mild inflammation characterized by altered vascularity was found at the anus, in the rectum and in the recto-sigmoid colon. Coagulation for hemostasis using argon plasma at 0.8 liters/minute and 20 kramer was successful. A few small and large-mouthed diverticula were found in the sigmoid colon. The exam was otherwise normal throughout the examined colon. The terminal ileum appeared normal. Impression: - Leathery, fibrotic, thick fragile perianal skin related to prior radiation found on perianal exam. - Noncompliant/fibrotic feel of anal canal found on PERLA. - A few scattered neovascularisations found in rectum, anus and rectosigmoid related to radiation proctitis. Treated with argon plasma coagulation (APC). - Diverticulosis in the sigmoid colon. - The colon is otherwise normal. - The examined portion of the ileum was normal. - Preparation of the colon was fair. - No specimens collected. Recommendation: - I suspect bright red rectal oozing/bleeding more likely related to fragile sclerotic perianal skin and anal mucosa. Radiation proctitis/neovascularisations were present but not impressive. - Consider alternative cause for anemia/outpatient referral to hematology for further eval/management of anemia. - Consider outpatient dermatology eval to address radiation dermatitis - If needed, she can follow up with her established GI, Dr Camilo. Procedure Code(s): --- Professional --- 95582, Colonoscopy, flexible; with control of bleeding, any method Diagnosis Code(s): --- Professional --- K57.30, Diverticulosis of large intestine without perforation or abscess without bleeding K92.1, Melena (includes Hematochezia) K62.7, Radiation proctitis K62.4, Stenosis of anus and rectum CPT copyright 2019 [employer]. All rights reserved. The codes documented in this report are preliminary and upon manager user experience review may be revised to meet current compliance requirements. Denis Craig MD Denis CRAIG MD 05/01/2020 5:40:31 PM Electronically signed by Denis CRAIG MD Number of Addenda: 0 Note Initiated On: 05/01/2020 3:30 PM Estimated Blood Loss: Estimated blood loss: none.
[2020-05-01 19:12] LABS: HEMATOCRIT 27.1 % (36.0-47.0); HEMOGLOBIN 7.5 g/dl (12.0-15.5)
[2020-05-01] MEDS: ATORVASTATIN 20 MG TAB PO SCH (21:58)
[2020-05-02] VITALS: BP 154/74
[2020-05-02 04:00] VITALS: BP 132/61
[2020-05-02 06:28] LABS: HEMATOCRIT 26.7 % (36.0-47.0); HEMOGLOBIN 7.5 g/dl (12.0-15.5); MEAN CORPUSCULAR HEMOGLOBIN 22.1 pg (27.0-33.0); MEAN CORPUSCULAR HGB CONC 28.1 g/dl (32.0-36.5); MEAN CORPUSCULAR VOLUME 78.8 fl (80.0-96.0); RED BLOOD COUNT 3.39 10^6/uL (4.00-5.40); WHITE BLOOD COUNT 4.3 10^3/uL (4.0-10.0)
[2020-05-02 06:29] LABS: PLATELET COUNT, AUTOMATED 77 10^3/uL (150-450)
[2020-05-02] MEDS: SLF 3 ML SYR IV SCH (06:29)
[2020-05-02 06:53] LABS: BLOOD UREA NITROGEN 11 MG/DL (7-18); CARBON DIOXIDE LEVEL 28 MEQ/L (21-32); CHLORIDE LEVEL 106 MEQ/L (98-107); CREATININE FOR GFR 0.89 MG/DL (0.55-1.30); GLOMERULAR FILTRATION RATE > 60.0 (>39); GLUCOSE, FASTING 123 MG/DL (70-100); POTASSIUM SERUM 4.1 MEQ/L (3.5-5.1); SODIUM LEVEL 139 MEQ/L (136-145)
[2020-05-02 06:54] LABS: ALBUMIN 3.2 GM/DL (3.2-5.2); ALT/SGPT 23 U/L (12-78); BILIRUBIN,TOTAL 0.5 MG/DL (0.2-1.0); CALCIUM LEVEL 8.7 MG/DL (8.8-10.2); TOTAL PROTEIN 7.1 GM/DL (6.4-8.2)
[2020-05-02] MEDS: TIOTROPIUM INHALER/CAPSULE (SPIRIVA) INH SCH (07:09)
[2020-05-02] MEDS: FORMOTEROL FUMARATE 20 MCG/2 ML INHALATION SOLUTION (PERFOROMIST) INH SCH (07:09)
--- NOTE | 2020-05-02 07:41 | ECGEPIP ---
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
[2020-05-02 08:00] VITALS: BP 132/74
--- NOTE | 2020-05-02 08:11 | REP ---
INDICATION: ?cirrohsis COMPARISON: None. TECHNIQUE: Real time sandoval scale ultrasound examination using curved array transducer. FINDINGS: Liver is essentially normal in echotexture and contour without definitive significant cirrhotic changes noted by ultrasound. No focal hepatic lesion identified. Pancreas is incompletely evaluated due to interposed bowel gas but visualized portions appear normal. The gallbladder demonstrates wall thickening 2 proximally 7.5 mm with suggestions for small scattered benign polyps and or nonshadowing small stones/gravel measuring up to 6 mm. No obvious shadowing gallstones are identified. No biliary ductal dilatation is appreciated and the common bile duct measures 3.7 mm diameter. Right kidney is normal in reniform shape without hydronephrosis and measures 11.5 x 5.9 x 3.9 cm with a 2.2 x 1.7 x 1.5 cm complex septated midpole cyst. No ascites. IMPRESSION: 1. Liver appears essentially normal by ultrasound examination. 2. Gallbladder wall thickening along with few suspected polyps and or nonshadowing stones. No associated biliary ductal dilatation is appreciated. <Electronically signed by Magnus Duarte > 05/02/20 [id number]
[2020-05-02] MEDS: PANTOPRAZOLE 40MG VIAL (C9113 PER 1) IV SCH (08:39)
[2020-05-02] MEDS: HumaLOG INSULIN (NovoLOG) PER UNIT SC SCH ×2 (08:40→12:48)
[2020-05-02] MEDS ORDERED: FERROUS GLUCONATE 324 MG TAB PO SCH ×2 (09:00→16:00)
[2020-05-02] MEDS ORDERED: PANT40TA29 PO (10:57)
[2020-05-02] MEDS ORDERED: FERR32TA PO (10:57)
[2020-05-02 12:00] VITALS: BP 121/90
--- NOTE | 2020-05-02 15:25 | DS.PDOC ---
Discharge Summary General Date of Admission Apr 29, 2020 at 21:42 Date of Discharge 05/02/2020 Primary Care Physician: TREVIN NEWTON NP Attending Physician: MICHAEL WOODS MD Specialist/Consultants Involve: CHIQUI MARADIAGA MD Discharge Summary PROCEDURES PERFORMED DURING STAY: Upper GI endoscopy (05/01/2020) - Z-line variable, at the gastroesophageal junction. Biopsied. A single gastric polyp. Biopsied. Clips were placed. The examination was otherwise normal. Colonoscopy (05/01/2020) - Leathery, fibrotic, thick fragile perianal skin related to prior radiation found on perianal exam. Noncompliant/fibrotic feel of anal canal found on PERLA. A few scattered neovascularisations found in rectum, anus and rectosigmoid related to radiation proctitis. Treated with argon plasma coagulation (APC). Diverticulosis in the sigmoid colon. The colon is otherwise normal. The examined portion of the ileum was normal. Preparation of the colon was fair. No specimens collected. 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 The patient reports that for over a year now she's been feeling more fatigued, has been sleeping more, and has had dyspnea on exertion. For the past 5 days, however, she has noticed black tarry stools and bright red blood in the toilet when she goes to [place]. She states that she has had black or maroon stools off and on for the past year. Recently, she was seen in the pulmonology office and found to have low hemoglobin as well. The patient also reports some abdominal pain mostly in her right lower and left lower quadrants. Her bowel movements have been n ormal in caliber and frequency. She does report some weight loss of about 20 pounds in the past 6 months. Per EMR, the patient last had a colonoscopy in 2019 where she was found to have adenomatous polyp and tubular adenoma as well as nonbleeding internal hemorrhoids and increased mucosal vascular pattern in the rectum. An EGD was also done at that time which showed chronic inflammation and small hiatal hernia. HOSPITAL COURSE: On arrival to the ED, Ms. Farooq had a hemoglobin level of 5.7. CT abdomen/pelvis showed thickening of the wall of the rectum and anus, which may represent proctitis and anusitus, post treatment changes, or neoplasm, nodular liver contour, splenomegaly, and gallbladder wall thickening. Two units of PRBCs were transfused and H/H was trended Q6H. Hgb and Hct stabilized with most recent level of 7.5 and 26.7, respectfully. Iron studies revealed low serum iron of 16, normal TIBC of 402 and low ferritin of 4. IV iron transfusion 200mg was given and IV Protonix 40 mg BID was started. At this time, GI was consulted to perform an EGD and colonoscopy due to hx of cancer and hx of chronic intermittent bloody stools. On day 2, EGD and colonoscopy was done and EGD showed a variable z-line and a single gastric polyp, both of which were biop sied. Colonoscopy showed leathery, fibrotic, thick fragile perianal skin related to prior radiation, few scattered neovascularisations found in rectum, anus and rectosigmoid which were coagulated, and diverticulosis in sigmoid colon. No evidence of acute bleed on EGD and colonoscopy. BRBPR is most likely due to fragile perianal skin and mucosa. Liver ultrasound was also done due to concerning findings for cirrhosis such as splenomegaly, nodular liver and thrombocytopenia. Liver ultrasound was essentially normal with some gallbladder wall thickening. At this time, there is no evidence of an acute GI bleed and Hgb has stabilized. Pt is deemed stable for discharge and should follow up with PCP and mechanical technologist regarding anemia and thrombocytopenia for investigation of autoimmune hemolytic anemia vs bone marrow pathology. DISCHARGE MEDICATIONS: Please see below. ALLERGIES: Please see below. PHYSICAL EXAMINATION ON DISCHARGE: VITAL SIGNS: Please see below. GENERAL: Pt is lying comfortably in bed. No respiratory distress. HEENT: PERRL. EOM intact. Moist, oral mucus membranes. NECK: Supple. No lymphadenopathy. CARDIOVASCULAR EXAMINATION: S1S2 present. RRR. No murmurs, rubs or gallops. RESPIRATORY EXAMINATION: Clear to auscultation in all lung samaniego. No wheezes, rhonchi or rales appreciated. ABDOMINAL EXAMINATION: Soft, nontender abdomen on palpation. Diastasis recti appreciated. Bowel sounds normoactive in all 4 quadrants. SKIN: No rashes, lesions or wounds. NEUROLOGICAL EXAMINATION: No obvious focal neurologic deficits. CN intact. 5/5 strength in bilateral upper and lower extremities. PSYCHIATRIC EXAMINATION: Normal mood and affect. LABORATORY DATA: Please see below. IMAGING: CT abdomen w/o contrast (04/29/2020) - Thickening of the wall of the rectum and anus, which may represent proctitis and anusitus, post treatment changes, or neoplasm. - Nodular contour of the liver, which can be seen with cirrhosis. - Splenomegaly. - Gallbladder wall thickening and/or pericholecystic fluid. - Chronic edema surrounding the inferior mesenteric artery that is similar in appearance compared to the prior CT abdomen and pelvis on 03/24/2020. - Calcified bilateral pleural plaques, indicating prior asbestos exposure. - Small fat containing umbilical hernia. 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 Liver ultrasound (05/01/2020) - Liver appears essentially normal by ultrasound examination. - Gallbladder wall thickening along with few suspected polyps and or nonshado wing stones. No associated biliary ductal dilatation is appreciated. PROGNOSIS: Fair ACTIVITY: As tolerated DIET: Regular DISPOSITION/DISCHARGE PLAN: Discharge to home DISCHARGE INSTRUCTIONS: 1. Follow-up with your PCP in 7-10 days 2. Follow up with Dr. Maradiaga for pathology results and further GI care 3. You are being referred to Hematology to further evaluate the cause of your anemia (low blood hemoglobin) and thrombocytopenia (low platelet counts) 4. Please take all medications as prescribed 5. If your symptoms return or your condition worsens, please call your PCP or return to the ED for further evaluation. DISCHARGE CONDITION: Stable TIME SPENT ON DISCHARGE: Greater than 35minutes. Vital Signs/I&Os Vital Signs Date Time Temp Pulse Resp B/P (MAP) Pulse Ox O2 Delivery O2 Flow Rate FiO2 05/02/20 08:00 97.0 74 16 132/74 (93) 97 Room Air I&O- Last 24 Hours up to 6 AM 05/02/20 06:00 Intake Total 1000 ml Output Total 600 ml Balance 400 ml Laboratory Data Labs 24H Laboratory Tests 2 05/01/20 11:40: Bedside Glucose (Misc Panel) 110 05/01/20 17:02: Bedside Glucose (Misc Panel) 83 05/01/20 22:00: Bedside Glucose (Misc Panel) 147H 05/02/20 05:08: Nucleated Red Blood Cells % (auto) 0.0, Immature Platelet Fraction 6.6, Anion Gap 5L, Glomerular Filtration Rate > 60.0, Calcium Level 8.7L, Total Bilirubin 0.5, Aspartate Amino Transf (AST/SGOT) 21, Alanine Aminotransferase (ALT/SGPT) 23, Alkaline Phosphatase 80, Total Protein 7.1, Albumin 3.2, Albumin/Globulin Ratio 0.8L CBC/BMP Laboratory Tests 05/01/20 18:56 05/02/20 05:08 FSBS Laboratory Tests Test 05/01/20 11:40 05/01/20 17:02 05/01/20 22:00 Range/Units Bedside Glucose (Misc Panel) 110 83 147 83-110 MG/DL Microbiology Microbiology 05/01/20 Stool Occult Blood (MOISES) - Final, Complete Discharge Medications Scheduled Aspirin (Aspirin EC) 81 Mg Tablet.dr, 81 MG PO DAILY, (Reported) Atorvastatin Calcium (Atorvastatin Calcium) 40 Mg Tablet, 40 MG PO QHS, (Reported) Cyanocobalamin (Vitamin B-12) (Vitamin B-12) 1,000 Mcg Capsule, 1,000 MCG PO DAILY, (Reported) Ferrous Gluconate (Ferrous Gluconate) 324 Mg Tablet, 324 MG PO TID Metformin HCl (Metformin HCl) 1,000 Mg Tablet, 1,000 MG PO BID, (Reported) Pantoprazole Sodium (Pantoprazole Sodium) 40 Mg Tablet.dr, 40 MG PO DAILY Umeclidinium Brm/Vilanterol Tr (Anoro Ellipta 62.5-25 Mcg INH) 1 Each B lst.w.dev, 1 PUFF INH DAILY, (Reported) Scheduled PRN Albuterol Sulfate (Proair Hfa) 8.5 Gm Hfa.aer.ad, 2 PUFF INH Q4H PRN for SHORTNESS OF BREATH, (Reported) Cetirizine HCl (Cetirizine HCl) 10 Mg Tablet, 10 MG PO DAILY PRN for ALLERGY SYMPTOMS, (Reported) Loperamide HCl (Loperamide) 2 Mg Capsule, 2 MG PO Q6H PRN for AFTER EACH LOOSE STOOL, (Reported) Nystatin (Nystatin Powder) 15 Gm Powder, 1 DOSE TOP BID PRN for RASH/ITCHING, (Reported) APPLIES TO GROIN Allergies Coded Allergies: No Known Allergies (Unverified , 10/24/18) GME ATTESTATION GME ATTESTATION My faculty preceptor for this patient encounter was physically present during the encounter and was fully available. All aspects of the patient interview, examination, medical decision making process, and medical care plan development were reviewed and approved by the faculty preceptor. The faculty preceptor is aware and concurs with the plan as stated in the body of this note and will attest to such by his/her cosignature. MARCELA STOUT D.O. May 02, 2020 11:36 JAN VALADEZ DO May 02, 2020 15:24
[2020-05-03] MEDS ORDERED: PANTOPRAZOLE 40MG TAB (PROTONIX) PO SCH (09:00)
== END 2020-05-02 15:48 | disposition home or self-care (01) | DRG 812 ==
LOC: M ED 17:04 → M ED INP 21:42 → ENRESERV 22:09 → M PCU 23:49
PROVIDERS: ADMIT Internal Medicine; ATTEND Internal Medicine
PROC: 30233N1 Transfusion of Nonautologous Red Blood Cells into Peripheral Vein, Percutaneous Approach (ICD-10-PCS; 2020-04-29)
PROC: 0DB68ZX Excision of Stomach, Via Natural or Artificial Opening Endoscopic, Diagnostic (ICD-10-PCS; 2020-05-01)
PROC: 0W3P8ZZ Control Bleeding in Gastrointestinal Tract, Via Natural or Artificial Opening Endoscopic (ICD-10-PCS; 2020-05-01)
PROC: 0DB48ZX Excision of Esophagogastric Junction, Via Natural or Artificial Opening Endoscopic, Diagnostic (ICD-10-PCS; principal; 2020-05-01 14:30)
DX: D62 Acute posthemorrhagic anemia (principal); K92.2 Gastrointestinal hemorrhage, unspecified; K92.1 Melena; D69.59 Other secondary thrombocytopenia; K62.7 Radiation proctitis; E11.9 Type 2 diabetes mellitus without complications; K21.9 Gastro-esophageal reflux disease without esophagitis; E78.5 Hyperlipidemia, unspecified; J44.9 Chronic obstructive pulmonary disease, unspecified; Z85.048 Personal history of other malignant neoplasm of rectum, rectosigmoid junction, and anus; Z92.21 Personal history of antineoplastic chemotherapy; Y84.2 Radiological procedure and radiotherapy as the cause of abnormal reaction of the patient, or of later complication, without mention of misadventure at the time of the procedure; Z85.828 Personal history of other malignant neoplasm of skin; G47.00 Insomnia, unspecified; M72.2 Plantar fascial fibromatosis; K64.8 Other hemorrhoids; Z98.41 Cataract extraction status, right eye; Z98.42 Cataract extraction status, left eye; Z87.891 Personal history of nicotine dependence; Z79.82 Long term (current) use of aspirin; Z79.84 Long term (current) use of oral hypoglycemic drugs; Z79.899 Other long term (current) drug therapy; K31.7 Polyp of stomach and duodenum; K22.70 Barrett's esophagus without dysplasia; K22.8 Other specified diseases of esophagus; K57.30 Diverticulosis of large intestine without perforation or abscess without bleeding; K62.4 Stenosis of anus and rectum

== ENCOUNTER → 2020-04-29 | Outpatient (REF) | payer MEDICARE ==
[~2020-04-29] MED LIST changes: +ASPI-161 PO; +METF-877 PO; +PROAAER10 INH
[2020-04-29 14:03] LABS: BASO % 0.5 % (0.0-1.0); EOS # 0.1 10^3/uL (0.0-0.5); EOS % 2.9 % (0.0-3.0); HEMATOCRIT 22.5 % (36.0-47.0); LYMPH # 0.9 10^3/uL (1.5-5.0); LYMPH % 21.1 % (24.0-44.0); MEAN CORPUSCULAR HEMOGLOBIN 20.4 pg (27.0-33.0); MEAN CORPUSCULAR HGB CONC 26.7 g/dl (32.0-36.5); MEAN CORPUSCULAR VOLUME 76.5 fl (80.0-96.0); MONO # 0.4 10^3/uL (0.0-0.8); MONO % 9.1 % (0.0-5.0); NEUTROPHILS # 2.7 10^3/uL (1.5-8.5); NEUTROPHILS % 65.9 % (36.0-66.0); PLATELET COUNT, AUTOMATED 90 10^3/uL (150-450); RED BLOOD COUNT 2.94 10^6/uL (4.00-5.40); WHITE BLOOD COUNT 4.1 10^3/uL (4.0-10.0)
[2020-04-29 14:19] LABS: PERCENT SATURATION 3.9 % (13.2-45.0)
== END ==
LOC: M SFHCPLAZ 10:29
PROVIDERS: ATTEND Nurse Practitioner Family
DX: D64.9 Anemia, unspecified (principal)

== ENCOUNTER → 2020-05-15 | Outpatient (REF) | payer MEDICARE ==
[~2020-05-15] MED LIST changes: +ASPI-161 PO; +FERR32TA PO; +METF-877 PO; +PANT40TA29 PO; +PROAAER10 INH
[2020-05-15 14:04] LABS: BASO % 0.7 % (0.0-1.0); EOS # 0.1 10^3/uL (0.0-0.5); EOS % 2.5 % (0.0-3.0); HEMATOCRIT 34.6 % (36.0-47.0); HEMOGLOBIN 9.7 g/dl (12.0-15.5); LYMPH # 0.8 10^3/uL (1.5-5.0); LYMPH % 17.3 % (24.0-44.0); MEAN CORPUSCULAR HEMOGLOBIN 23.8 pg (27.0-33.0); MEAN CORPUSCULAR VOLUME 84.8 fl (80.0-96.0); MONO # 0.4 10^3/uL (0.0-0.8); MONO % 9.5 % (0.0-5.0); NEUTROPHILS # 3.1 10^3/uL (1.5-8.5); NEUTROPHILS % 69.5 % (36.0-66.0); PLATELET COUNT, AUTOMATED 107 10^3/uL (150-450); RED BLOOD COUNT 4.08 10^6/uL (4.00-5.40); WHITE BLOOD COUNT 4.4 10^3/uL (4.0-10.0)
== END ==
LOC: M SFHCPLAZ 11:31
PROVIDERS: ATTEND Nurse Practitioner Family
DX: D50.0 Iron deficiency anemia secondary to blood loss (chronic) (principal); D69.6 Thrombocytopenia, unspecified

== ENCOUNTER → 2020-12-25 | Outpatient (CLI) | payer MEDICARE ==
[~2020-12-25] MED LIST changes: +VITATAB74 PO
[2020-12-25 12:07] LABS: ALBUMIN 3.8 GM/DL (3.2-5.2); ALT/SGPT 28 U/L (12-78); BILIRUBIN,TOTAL 0.8 MG/DL (0.2-1.0); BLOOD UREA NITROGEN 13 MG/DL (7-18); CALCIUM LEVEL 9.1 MG/DL (8.8-10.2); CARBON DIOXIDE LEVEL 30 MEQ/L (21-32); CHLORIDE LEVEL 102 MEQ/L (98-107); CHOLESTEROL LEVEL 120 MG/DL (<200); CREATININE FOR GFR 0.77 MG/DL (0.55-1.30); GLOMERULAR FILTRATION RATE > 60.0 (>39); GLUCOSE, FASTING 118 MG/DL (70-100); HDL CHOLESTEROL 31 MG/DL (>40); LDL CHOLESTEROL 55 MG/DL (<100); NON-HDL-C 89 MG/DL; POTASSIUM SERUM 3.9 MEQ/L (3.5-5.1); SODIUM LEVEL 138 MEQ/L (136-145); TRIGLYCERIDES LEVEL 169 MG/DL (<150)
[2020-12-25 12:11] LABS: TOTAL 25(OH) VITAMIN D 26.9 NG/ML (30.0-100.0)
[2020-12-25 12:16] LABS: MALB URINE SIEMENS 11.5 MG/L; MAU/CREAT RATIO 18.8 MCG/MG (0.0-30.0)
== END ==
LOC: M PLALAB 08:52
PROVIDERS: ATTEND Nurse Practitioner Family
DX: E11.9 Type 2 diabetes mellitus without complications (principal); E55.9 Vitamin D deficiency, unspecified; E78.2 Mixed hyperlipidemia

== ENCOUNTER → 2021-01-07 | Outpatient (CLI) | payer MEDICARE | LOC: M SOG 08:23 | PROVIDERS: ATTEND Orthopaedic Surgery Adult Reconstructive Orthopaedic Surgery | DX: M25.552 Pain in left hip (principal) ==

== ENCOUNTER → 2021-01-09 | Outpatient (CLI) | payer MEDICARE ==
--- NOTE | 2021-01-09 14:02 | REP ---
INDICATION: PAIN LEFT HIP. COMPARISON: None. TECHNIQUE: Two views FINDINGS: No fracture or dislocation. Hip joint well maintained. Osteoporosis. IMPRESSION: Osteoporosis. No bony injury. <Electronically signed by Robert Gonzalez > 01/09/21 [id number]
== END ==
LOC: M SOG 11:39
PROVIDERS: ATTEND Orthopaedic Surgery Adult Reconstructive Orthopaedic Surgery
DX: M25.552 Pain in left hip (principal); M81.0 Age-related osteoporosis without current pathological fracture

== ENCOUNTER → 2021-07-27 | Outpatient (CLI) | payer MEDICARE ==
[~2021-07-27] MED LIST changes: +NYST1CRE15 TOP; -OMEP-221 PO; +OMEP40CA5 PO
== END ==
LOC: M CARPUL 08:11
PROVIDERS: ATTEND Family Medicine
DX: I77.810 Thoracic aortic ectasia (principal)

== ENCOUNTER → 2021-11-20 | Outpatient (CLI) | payer MEDICARE ==
[~2021-11-20] MED LIST changes: +GASTROGRAFIN SOLUTION 30ML (Q9963) ONE; +ISOVUE-370 76% 100ML VIAL ONE
== END ==
LOC: M PLAIMG 09:42
PROVIDERS: ATTEND Specialist
DX: C21.0 Malignant neoplasm of anus, unspecified (principal); K62.5 Hemorrhage of anus and rectum
CPT/HCPCS: 74177; Q9963; Q9967

== ENCOUNTER → 2021-12-09 | Outpatient (CLI) | payer MEDICARE ==
[~2021-12-09] MED LIST changes: -GASTROGRAFIN SOLUTION 30ML (Q9963) ONE; -ISOVUE-370 76% 100ML VIAL ONE; +JANU100T
== END ==
LOC: M WHC 13:12
PROVIDERS: ATTEND Specialist
DX: Z12.31 Encounter for screening mammogram for malignant neoplasm of breast (principal); M81.0 Age-related osteoporosis without current pathological fracture

== ENCOUNTER → 2021-12-24 | Outpatient (CLI) | payer MEDICARE ==
[2021-12-24 15:20] LABS: HEMATOCRIT 36.9 % (36.0-47.0)
[2021-12-24 16:16] LABS: ALBUMIN 3.7 GM/DL (3.2-5.2); ALT/SGPT 23 U/L (12-78); BILIRUBIN,TOTAL 0.6 MG/DL (0.2-1.0); BLOOD UREA NITROGEN 11 MG/DL (7-18); C REACTIVE PROTEIN QUANTITATIV 0.84 MG/DL (0.00-0.30); CALCIUM LEVEL 9.6 MG/DL (8.8-10.2); CARBON DIOXIDE LEVEL 27 MEQ/L (21-32); CHLORIDE LEVEL 110 MEQ/L (98-107); CREATININE FOR GFR 0.81 MG/DL (0.55-1.30); FREE T4 1.01 NG/DL (0.76-1.46); GLOMERULAR FILTRATION RATE > 60.0 (>39); GLUCOSE, FASTING 108 MG/DL (70-100); POTASSIUM SERUM 4.5 MEQ/L (3.5-5.1); SODIUM LEVEL 140 MEQ/L (136-145); TOTAL 25(OH) VITAMIN D 29.2 NG/ML (30.0-100.0); TOTAL PROTEIN 7.9 GM/DL (6.4-8.2); VITAMIN B12 LEVEL 577 PG/ML (247-911)
[2021-12-24 17:06] LABS: NT-PRO BNP 84 PG/ML (<450)
== END ==
LOC: M PLALAB 12:30
PROVIDERS: ATTEND Family Medicine
DX: E78.2 Mixed hyperlipidemia (principal); E53.8 Deficiency of other specified B group vitamins; E55.9 Vitamin D deficiency, unspecified; E11.65 Type 2 diabetes mellitus with hyperglycemia; Z79.899 Other long term (current) drug therapy

== ENCOUNTER → 2022-01-06 | Outpatient (CLI) | payer MEDICARE | LOC: M WHC 09:45 | PROVIDERS: ATTEND Family Medicine | DX: R92.2 Inconclusive mammogram (principal) | CPT/HCPCS: 77065; G0279 ==

== ENCOUNTER 2022-01-18 15:37 | Outpatient (CLI) | payer MEDICARE ==
[~2022-01-18] VITALS: Ht 165.1 cm; Wt 93.1 kg
[~2022-01-18 15:37] MED LIST changes: +ZOLEDRONIC ACID 5 MG in IV 1 EA IV ONE
[2022-01-18 15:57] VITALS: BP 126/57
[2022-01-18 16:32] VITALS: BP 120/58
== END 2022-01-18 16:45 | disposition home or self-care (01) ==
LOC: M INFU 15:37
PROVIDERS: ATTEND Family Medicine
DX: M81.0 Age-related osteoporosis without current pathological fracture (principal)
CPT/HCPCS: 96365; J3489

== ENCOUNTER → 2022-02-03 | Outpatient (CLI) | payer MEDICARE ==
[~2022-02-03] MED LIST changes: -ZOLEDRONIC ACID 5 MG in IV 1 EA IV ONE
== END ==
LOC: M RAD 09:35
PROVIDERS: ATTEND Internal Medicine Pulmonary Disease
DX: Z87.891 Personal history of nicotine dependence (principal)

== ENCOUNTER → 2022-04-25 | Outpatient (CLI) | payer MEDICARE ==
[~2022-04-25] MED LIST changes: +ALBU8.5H INH; -JANU100T; +JANU100T PO; +LEXA5TAB13 PO; +LIDO2SOL17 RC; +MESA1000; +TROS20TA3 PO
== END ==
LOC: M LABSMTC 09:39
PROVIDERS: ATTEND Anesthesiology
DX: Z01.812 Encounter for preprocedural laboratory examination (principal); Z11.52 Encounter for screening for COVID-19

== ENCOUNTER 2022-04-28 07:50 | Day surgery (SDC) | payer MEDICARE ==
[~2022-04-28] VITALS: Ht 167.6 cm; Wt 88.0 kg
[~2022-04-28 07:50] MED LIST changes: +NS 1,000 ML IV ONE
[2022-04-28] MEDS ORDERED: LIDOCAINE 2% 100MG/5ML SDV (FOR ANES.) As Ordered ONE (09:10)
[2022-04-28] MEDS ORDERED: fentaNYL 100 MCG/2 ML INJECTION As Ordered ONE (09:10)
[2022-04-28] MEDS ORDERED: propofoL 200 MG/20 ML VIAL As Ordered ONE ×2 (09:10→10:14)
[2022-04-28 10:59] VITALS: BP 138/64
== END 2022-04-28 11:01 | disposition home or self-care (01) ==
LOC: M OPP 07:50
PROVIDERS: ATTEND Internal Medicine Gastroenterology
DX: K64.0 First degree hemorrhoids (principal); K63.5 Polyp of colon; K63.89 Other specified diseases of intestine; K52.0 Gastroenteritis and colitis due to radiation; D50.9 Iron deficiency anemia, unspecified; K31.A0 Gastric intestinal metaplasia, unspecified; E11.9 Type 2 diabetes mellitus without complications; I20.9 Angina pectoris, unspecified; I71.40 Abdominal aortic aneurysm, without rupture, unspecified; Z79.02 Long term (current) use of antithrombotics/antiplatelets; Z79.51 Long term (current) use of inhaled steroids; Z79.84 Long term (current) use of oral hypoglycemic drugs; Z79.899 Other long term (current) drug therapy; Z85.048 Personal history of other malignant neoplasm of rectum, rectosigmoid junction, and anus; Z92.3 Personal history of irradiation
CPT/HCPCS: 43239; 45380; 45385; 88305; J3010

== ENCOUNTER → 2022-04-30 | Outpatient (CLI) | payer MEDICARE ==
[~2022-04-30] MED LIST changes: -NS 1,000 ML IV ONE
[2022-04-30 12:48] LABS: BASO % 0.3 % (0.0-1.0); EOS # 0.1 10^3/uL (0.0-0.5); EOS % 2.1 % (0.0-3.0); HEMATOCRIT 35.1 % (36.0-47.0); LYMPH # 0.8 10^3/uL (1.5-5.0); MEAN CORPUSCULAR HEMOGLOBIN 28.3 pg (27.0-33.0); MEAN CORPUSCULAR HGB CONC 31.3 g/dl (32.0-36.5); MEAN CORPUSCULAR VOLUME 90.2 fl (80.0-96.0); MONO # 0.3 10^3/uL (0.0-0.8); MONO % 7.6 % (2.0-8.0); NEUTROPHILS # 2.2 10^3/uL (1.5-8.5); NEUTROPHILS % 66.7 % (36.0-66.0); RED BLOOD COUNT 3.89 10^6/uL (4.00-5.40); WHITE BLOOD COUNT 3.3 10^3/uL (4.0-10.0)
[2022-04-30 12:53] LABS: PLATELET COUNT, AUTOMATED 58 10^3/uL (150-450)
[2022-04-30 16:21] LABS: HEPATITIS B SURFACE ANTIGEN NEGATIVE (NEGATIVE); HEPATITIS C VIRUS ABY INDEX 0.1 INDEX (<0.8)
== END ==
LOC: M LAB 11:35 → M PLALAB 11:35
PROVIDERS: ATTEND Family Medicine
DX: K72.10 Chronic hepatic failure without coma (principal)

== ENCOUNTER → 2022-05-19 | Outpatient (CLI) | payer MEDICARE | LOC: M RAD 08:41 | PROVIDERS: ATTEND Family Medicine | DX: K72.10 Chronic hepatic failure without coma (principal) ==

== ENCOUNTER → 2022-08-23 | Outpatient (CLI) | payer MEDICARE ==
[~2022-08-23] MED LIST changes: +LIDO15SO4 RC; -LIDO2SOL17 RC
[2022-08-23 08:53] LABS: ALBUMIN 3.4 G/DL (3.2-5.2); ALKALINE PHOSPHATASE 73 U/L (46-116); ALT/SGPT 19 U/L (7.0-40); AST/SGOT 24 U/L (<34); BILIRUBIN,TOTAL 0.9 MG/DL (0.3-1.2); BLOOD UREA NITROGEN 13 MG/DL (9-23); CALCIUM LEVEL 8.9 MG/DL (8.3-10.6); CARBON DIOXIDE LEVEL 27 MMOL/L (20-31); CHLORIDE LEVEL 104 MMOL/L (98-107); CHOLESTEROL LEVEL 147 MG/DL (<200); CHOLESTEROL RISK RATIO 4.48 (<5); CREATININE FOR GFR 0.72 MG/DL (0.55-1.30); FREE T4 0.94 NG/DL (0.89-1.76); GLOMERULAR FILTRATION RATE > 60.0 (>39); GLUCOSE, FASTING 133 MG/DL (74-106); HDL CHOLESTEROL 32.8 MG/DL (>40); MAGNESIUM LEVEL 1.7 MG/DL (1.8-2.4); NON-HDL-C 114.2 MG/DL; SODIUM LEVEL 138 MMOL/L (136-145); THYROID STIMULATING HORMONE 3.018 uIU/ML (0.55-4.78); TOTAL PROTEIN 7.2 G/DL (5.7-8.2); TRIGLYCERIDES LEVEL 136 MG/DL (<150)
[2022-08-23 09:38] LABS: HEMOGLOBIN A1c 5.7 % (4.0-6.0)
== END ==
LOC: M LAB 07:33
PROVIDERS: ATTEND Family Medicine
DX: K72.10 Chronic hepatic failure without coma (principal); E07.9 Disorder of thyroid, unspecified; E78.00 Pure hypercholesterolemia, unspecified

== ENCOUNTER 2022-12-01 18:39 | Observation (INO) | payer MEDICARE, MEDICAID ==
[~2022-12-01] VITALS: Ht 167.6 cm; Wt 98.2 kg
[~2022-12-01 18:39] MED LIST changes: +LIDO15SO RC; -LIDO15SO4 RC
[2022-12-01 21:29] LABS: BASO % 0.5 % (0.0-1.0); EOS # 0.1 10^3/uL (0.0-0.5); EOS % 1.8 % (0.0-3.0); HEMATOCRIT 33.9 % (36.0-47.0); HEMOGLOBIN 10.5 g/dl (12.0-15.5); LYMPH # 0.8 10^3/uL (1.5-5.0); LYMPH % 21.6 % (24.0-44.0); MEAN CORPUSCULAR HEMOGLOBIN 28.2 pg (27.0-33.0); MEAN CORPUSCULAR VOLUME 91.1 fl (80.0-96.0); MONO # 0.4 10^3/uL (0.0-0.8); MONO % 10.9 % (2.0-8.0); NEUTROPHILS # 2.5 10^3/uL (1.5-8.5); NEUTROPHILS % 64.9 % (36.0-66.0); RED BLOOD COUNT 3.72 10^6/uL (4.00-5.40); WHITE BLOOD COUNT 3.8 10^3/uL (4.0-10.0)
[2022-12-01 21:32] LABS: PLATELET COUNT, AUTOMATED 90 10^3/uL (150-450)
[2022-12-01 21:41] LABS: INR 1.16
[2022-12-01 21:42] LABS: PARTIAL THROMBOPLASTIN TIME 34.1 SECONDS (24.8-34.2)
[2022-12-01 21:59] LABS: LIPASE 39 U/L (12-53)
[2022-12-01 22:01] LABS: ALKALINE PHOSPHATASE 76 U/L (46-116); ALT/SGPT < 9 U/L (7.0-40); AST/SGOT 16 U/L (<34); BILIRUBIN,TOTAL 0.6 MG/DL (0.3-1.2); BLOOD UREA NITROGEN 16 MG/DL (9-23); CALCIUM LEVEL 8.2 MG/DL (8.3-10.6); CARBON DIOXIDE LEVEL 27 MMOL/L (20-31); CHLORIDE LEVEL 106 MMOL/L (98-107); CREATININE FOR GFR 0.83 MG/DL (0.55-1.30); GLOMERULAR FILTRATION RATE > 60.0 (>39); GLUCOSE, FASTING 119 MG/DL (74-106); POTASSIUM SERUM 4.1 MMOL/L (3.5-5.1); SODIUM LEVEL 139 MMOL/L (136-145); TOTAL PROTEIN 6.6 G/DL (5.7-8.2)
[2022-12-01] MEDS ORDERED: GLUCOSE 4GM CHEW TABLET PO PRN (23:25)
[2022-12-01] MEDS ORDERED: DEXTROSE 50% 50ML SYRINGE IV PRN (23:25)
[2022-12-01] MEDS ORDERED: GLUCAGON INJ 1MG VIAL SC PRN (23:25)
[2022-12-01] MEDS ORDERED: ISOVUE-370 76% 100ML VIAL As Ordered ONE (23:26)
[2022-12-02] VITALS (7 sets, daily range): BP systolic 119–132; BP diastolic 56–76; TEMP 97.7–98.2; O2SAT 94–98
[2022-12-02] MEDS ORDERED: TROS20TA3 PO (00:40)
[2022-12-02] MEDS ORDERED: FERR1TAB8 PO (00:40)
[2022-12-02] MEDS ORDERED: VITA100093 PO (00:40)
[2022-12-02] MEDS ORDERED: JANU100T PO (00:40)
[2022-12-02] MEDS ORDERED: PANT40TA29 PO (00:40)
[2022-12-02] MEDS ORDERED: LEXA5TAB13 PO (00:40)
[2022-12-02] MEDS ORDERED: HOME MED LIST COMPLETE! XX SCH (00:45)
[2022-12-02] MEDS ORDERED: ALBUTEROL 90 MCG/ACT 8GM HFA INHALER INH PRN (02:10)
[2022-12-02 06:06] LABS: HEMATOCRIT 34.5 % (36.0-47.0); HEMOGLOBIN 10.8 g/dl (12.0-15.5); MEAN CORPUSCULAR HEMOGLOBIN 28.6 pg (27.0-33.0); MEAN CORPUSCULAR HGB CONC 31.3 g/dl (32.0-36.5); MEAN CORPUSCULAR VOLUME 91.5 fl (80.0-96.0); RED BLOOD COUNT 3.77 10^6/uL (4.00-5.40); WHITE BLOOD COUNT 3.3 10^3/uL (4.0-10.0)
[2022-12-02 06:08] LABS: PLATELET COUNT, AUTOMATED 66 10^3/uL (150-450)
[2022-12-02 06:28] LABS: ALBUMIN 2.9 G/DL (3.2-5.2); ALKALINE PHOSPHATASE 71 U/L (46-116); ALT/SGPT < 9 U/L (7.0-40); AST/SGOT 10 U/L (<34); BILIRUBIN,TOTAL 0.7 MG/DL (0.3-1.2); BLOOD UREA NITROGEN 14 MG/DL (9-23); CALCIUM LEVEL 8.3 MG/DL (8.3-10.6); CARBON DIOXIDE LEVEL 26 MMOL/L (20-31); CHLORIDE LEVEL 106 MMOL/L (98-107); CREATININE FOR GFR 0.73 MG/DL (0.55-1.30); GLOMERULAR FILTRATION RATE > 60.0 (>39); GLUCOSE, FASTING 114 MG/DL (74-106); MAGNESIUM LEVEL 1.8 MG/DL (1.8-2.4); POTASSIUM SERUM 3.8 MMOL/L (3.5-5.1); SODIUM LEVEL 137 MMOL/L (136-145); TOTAL PROTEIN 6.2 G/DL (5.7-8.2)
[2022-12-02] MEDS: INSULIN LISPRO (NovoLOG) PER UNIT SC SCH ×4 (07:30→21:00)
[2022-12-02] MEDS: SALMETEROL DISKUS 50MCG INHALER (SEREVENT) INH SCH ×2 (08:00→20:41)
[2022-12-02] MEDS: TIOTROPIUM INHALER/CAPSULE (SPIRIVA) INH SCH (08:04)
[2022-12-02] MEDS: PANTOPRAZOLE 40MG TAB (PROTONIX) PO SCH (09:59)
[2022-12-02] MEDS: ESCITALOPRAM OXALATE 5MG TABLET (LEXAPRO) PO SCH (09:59)
[2022-12-02 12:13] LABS: SOURCE, BODY FLUID ALBUMIN ASCITES
[2022-12-02 12:19] LABS: SOURCE, BODY FLUID GLUCOSE ASCITES
[2022-12-02 12:21] LABS: SOURCE, BODY FLUID TOT PROTEIN ASCITES; TOTAL PROTEIN, BODY FLUID 3.1 G/DL (NOT ESTABLISHED)
[2022-12-02 12:25] LABS: APPEARANCE, BODY FLUID HAZY (CLEAR); ASCITES FL COLOR PALE YELLOW (COLORLESS); SOURCE, BODY FLUID ASCITES
[2022-12-02] MEDS ORDERED: KETOROLAC 30 MG/ML 1ML VIAL IV ONE (13:55)
[2022-12-02] MEDS: ATORVASTATIN 20 MG TAB PO SCH (21:33)
[2022-12-03] VITALS (10 sets, daily range): BP systolic 99–119; BP diastolic 56–58; TEMP 96.6–98.1; O2SAT 92–99
[2022-12-03] MEDS: HEPARIN SOD (PORCINE) 5000UNITS/ML 1ML VIAL/SYRINGE SQ SCH ×2 (05:27→17:59)
[2022-12-03 06:27] LABS: HEMATOCRIT 33.6 % (36.0-47.0); HEMOGLOBIN 10.5 g/dl (12.0-15.5); MEAN CORPUSCULAR HEMOGLOBIN 28.5 pg (27.0-33.0); MEAN CORPUSCULAR HGB CONC 31.3 g/dl (32.0-36.5); MEAN CORPUSCULAR VOLUME 91.3 fl (80.0-96.0); RED BLOOD COUNT 3.68 10^6/uL (4.00-5.40); WHITE BLOOD COUNT 2.8 10^3/uL (4.0-10.0)
[2022-12-03 06:34] LABS: ALBUMIN 2.6 G/DL (3.2-5.2); ALKALINE PHOSPHATASE 66 U/L (46-116); ALT/SGPT < 9 U/L (7.0-40); AST/SGOT 10 U/L (<34); BILIRUBIN,TOTAL 0.4 MG/DL (0.3-1.2); BLOOD UREA NITROGEN 15 MG/DL (9-23); CALCIUM LEVEL 8.7 MG/DL (8.3-10.6); CARBON DIOXIDE LEVEL 26 MMOL/L (20-31); CHLORIDE LEVEL 106 MMOL/L (98-107); CREATININE FOR GFR 0.74 MG/DL (0.55-1.30); GLOMERULAR FILTRATION RATE > 60.0 (>39); GLUCOSE, FASTING 128 MG/DL (74-106); MAGNESIUM LEVEL 1.7 MG/DL (1.8-2.4); POTASSIUM SERUM 3.9 MMOL/L (3.5-5.1); SODIUM LEVEL 137 MMOL/L (136-145); TOTAL PROTEIN 5.9 G/DL (5.7-8.2)
[2022-12-03 07:06] LABS: PLATELET COUNT, AUTOMATED 58 10^3/uL (150-450)
[2022-12-03] MEDS: TIOTROPIUM INHALER/CAPSULE (SPIRIVA) INH SCH (07:10)
[2022-12-03] MEDS: SALMETEROL DISKUS 50MCG INHALER (SEREVENT) INH SCH ×2 (07:14→19:28)
[2022-12-03] MEDS: INSULIN LISPRO (NovoLOG) PER UNIT SC SCH ×4 (07:30→20:26)
[2022-12-03] MEDS ORDERED: MAGNESIUM OXIDE 400MG TAB (MAG-OX) PO ONE (08:00)
[2022-12-03] MEDS: PANTOPRAZOLE 40MG TAB (PROTONIX) PO SCH (08:30)
[2022-12-03] MEDS: SPIRONOLACTONE 50 MG TAB PO SCH (08:30)
[2022-12-03] MEDS: ESCITALOPRAM OXALATE 5MG TABLET (LEXAPRO) PO SCH (08:30)
[2022-12-03] MEDS ORDERED: MAALOX 30 ML SUSP *UDC PO ONE (11:00)
[2022-12-03] MEDS ORDERED: FUROSEMIDE 20 MG TAB PO SCH (18:00)
[2022-12-03] MEDS: ATORVASTATIN 20 MG TAB PO SCH (21:17)
[2022-12-04 06:00] VITALS: BP 107/54; TEMP 98.1; O2SAT 96
[2022-12-04 06:14] LABS: HEMATOCRIT 32.9 % (36.0-47.0); HEMOGLOBIN 10.3 g/dl (12.0-15.5); MEAN CORPUSCULAR HEMOGLOBIN 28.7 pg (27.0-33.0); MEAN CORPUSCULAR HGB CONC 31.3 g/dl (32.0-36.5); MEAN CORPUSCULAR VOLUME 91.6 fl (80.0-96.0); RED BLOOD COUNT 3.59 10^6/uL (4.00-5.40); WHITE BLOOD COUNT 2.2 10^3/uL (4.0-10.0)
[2022-12-04 06:15] LABS: PLATELET COUNT, AUTOMATED 57 10^3/uL (150-450)
[2022-12-04 06:26] LABS: BLOOD UREA NITROGEN 15 MG/DL (9-23); CALCIUM LEVEL 7.7 MG/DL (8.3-10.6); CARBON DIOXIDE LEVEL 28 MMOL/L (20-31); CHLORIDE LEVEL 108 MMOL/L (98-107); CREATININE FOR GFR 0.77 MG/DL (0.55-1.30); GLOMERULAR FILTRATION RATE > 60.0 (>39); GLUCOSE, FASTING 152 MG/DL (74-106); MAGNESIUM LEVEL 1.7 MG/DL (1.8-2.4); PHOSPHORUS LEVEL 3.5 MG/DL (2.4-5.1); POTASSIUM SERUM 4.5 MMOL/L (3.5-5.1); SODIUM LEVEL 140 MMOL/L (136-145)
[2022-12-04] MEDS: HEPARIN SOD (PORCINE) 5000UNITS/ML 1ML VIAL/SYRINGE SQ SCH (06:41)
[2022-12-04] MEDS ORDERED: MAGNESIUM OXIDE 400MG TAB (MAG-OX) PO ONE (07:10)
[2022-12-04] MEDS: INSULIN LISPRO (NovoLOG) PER UNIT SC SCH (08:18)
[2022-12-04] MEDS: ESCITALOPRAM OXALATE 5MG TABLET (LEXAPRO) PO SCH (08:19)
[2022-12-04] MEDS: SPIRONOLACTONE 50 MG TAB PO SCH (08:19)
[2022-12-04] MEDS: PANTOPRAZOLE 40MG TAB (PROTONIX) PO SCH (08:19)
[2022-12-04] MEDS: TIOTROPIUM INHALER/CAPSULE (SPIRIVA) INH SCH (08:29)
[2022-12-04] MEDS: SALMETEROL DISKUS 50MCG INHALER (SEREVENT) INH SCH (08:29)
[2022-12-04] MEDS ORDERED: ALDA50TA2 PO (09:10)
[2022-12-04] MEDS ORDERED: FURO20TA2 PO (09:10)
== END 2022-12-04 11:55 | disposition home health service (06) ==
LOC: M ED 18:39 → M ED INP 18:40 → M MSPAV 12-02 01:45
PROVIDERS: ADMIT Family Medicine; ATTEND Internal Medicine
DX: R88.8 Abnormal findings in other body fluids and substances (principal); K74.60 Unspecified cirrhosis of liver; R14.0 Abdominal distension (gaseous); R06.02 Shortness of breath; D61.818 Other pancytopenia; E11.9 Type 2 diabetes mellitus without complications; E78.5 Hyperlipidemia, unspecified; J45.909 Unspecified asthma, uncomplicated; F41.9 Anxiety disorder, unspecified; F32.A Depression, unspecified; K21.9 Gastro-esophageal reflux disease without esophagitis; Z85.048 Personal history of other malignant neoplasm of rectum, rectosigmoid junction, and anus; Z92.21 Personal history of antineoplastic chemotherapy; Z92.3 Personal history of irradiation; D50.9 Iron deficiency anemia, unspecified; Z91.011 Allergy to milk products; Z79.899 Other long term (current) drug therapy; Z79.84 Long term (current) use of oral hypoglycemic drugs; Z87.891 Personal history of nicotine dependence
CPT/HCPCS: 36415; 36430; 49083; 71045; 74177; 76705; 80048; 80053; 82042; 82945; 83690; 83735; 83880; 84100; 84157; 85025; 85027; 85049; 85055; 85610; 85730; 87070; 87102; 87116; 87205; 87206; 87635; 88108; 88305; 88313; 89051; 93005; 94640; 96372; 96374; 97116; 97161; 97530; 99284; G0378; J1815; J1885; P9047; Q9967

== ENCOUNTER → 2022-12-15 | Outpatient (CLI) | payer MEDICARE, MEDICAID ==
[~2022-12-15] MED LIST changes: +ALDA50TA2 PO; +FERR1TAB8 PO; +FURO20TA2 PO; +VITA100093 PO
[2022-12-15 14:21] LABS: BASO % 0.4 % (0.0-1.0); EOS # 0.1 10^3/uL (0.0-0.5); EOS % 1.7 % (0.0-3.0); HEMATOCRIT 38.6 % (36.0-47.0); HEMOGLOBIN 11.9 g/dl (12.0-15.5); LYMPH # 0.8 10^3/uL (1.5-5.0); LYMPH % 15.7 % (24.0-44.0); MEAN CORPUSCULAR HEMOGLOBIN 28.5 pg (27.0-33.0); MEAN CORPUSCULAR HGB CONC 30.8 g/dl (32.0-36.5); MEAN CORPUSCULAR VOLUME 92.3 fl (80.0-96.0); MONO # 0.4 10^3/uL (0.0-0.8); MONO % 8.8 % (2.0-8.0); NEUTROPHILS # 3.5 10^3/uL (1.5-8.5); RED BLOOD COUNT 4.18 10^6/uL (4.00-5.40); WHITE BLOOD COUNT 4.8 10^3/uL (4.0-10.0)
[2022-12-15 14:36] LABS: HEMOGLOBIN A1c 5.7 % (4.0-6.0)
[2022-12-15 14:48] LABS: PLATELET COUNT, AUTOMATED 88 10^3/uL (150-450)
[2022-12-15 14:51] LABS: THYROID STIMULATING HORMONE 3.168 uIU/ML (0.55-4.78)
[2022-12-15 14:52] LABS: FERRITIN 324.1 NG/ML (7.3-270.7)
[2022-12-15 14:53] LABS: ALBUMIN 3.2 G/DL (3.2-5.2); ALKALINE PHOSPHATASE 79 U/L (46-116); ALT/SGPT 10 U/L (7.0-40); AST/SGOT 11 U/L (<34); BILIRUBIN,TOTAL 0.5 MG/DL (0.3-1.2); BLOOD UREA NITROGEN 17 MG/DL (9-23); CALCIUM LEVEL 8.8 MG/DL (8.3-10.6); CARBON DIOXIDE LEVEL 28 MMOL/L (20-31); CHLORIDE LEVEL 102 MMOL/L (98-107); CREATININE FOR GFR 0.89 MG/DL (0.55-1.30); GLOMERULAR FILTRATION RATE > 60.0 (>39); GLUCOSE, FASTING 118 MG/DL (74-106); IRON (FE) 27 UG/DL (50-170); POTASSIUM SERUM 4.2 MMOL/L (3.5-5.1); PTH INTACT 99.5 PG/ML (18.5-88.0); SODIUM LEVEL 139 MMOL/L (136-145); TOTAL PROTEIN 7.3 G/DL (5.7-8.2)
[2022-12-15 14:54] LABS: FREE T4 0.96 NG/DL (0.89-1.76)
[2022-12-15 14:56] LABS: THYROID PEROXIDASE ANTIBODY < 28.0 U/ML (<60.0)
[2022-12-16 12:11] LABS: INSULIN LEVEL 25.4 uIU/mL (2.6-24.9)
== END ==
LOC: M PLALAB 10:30
PROVIDERS: ATTEND Family Medicine
DX: E55.9 Vitamin D deficiency, unspecified (principal); I50.32 Chronic diastolic (congestive) heart failure; D50.0 Iron deficiency anemia secondary to blood loss (chronic); E11.65 Type 2 diabetes mellitus with hyperglycemia; M85.80 Other specified disorders of bone density and structure, unspecified site

== ENCOUNTER → 2022-12-22 | Outpatient (CLI) | payer MEDICARE, MEDICAID ==
[2022-12-22 12:48] VITALS: TEMP 100.2
[2022-12-22 14:10] VITALS: BP 120/57; O2SAT 97
== END ==
LOC: M IRPRO 12:36
PROVIDERS: ATTEND Physician Assistant Medical
DX: R18.8 Other ascites (principal); K74.60 Unspecified cirrhosis of liver

== ENCOUNTER 2022-12-23 14:10 | Emergency (ER) | payer MEDICARE, MEDICAID ==
[~2022-12-23] VITALS: Ht 165.1 cm; Wt 88.6 kg
[2022-12-23 14:17] VITALS: TEMP 99.3
[2022-12-23 15:25] LABS: BASO % 0.3 % (0.0-1.0); EOS % 0.6 % (0.0-3.0); HEMATOCRIT 40.2 % (36.0-47.0); HEMOGLOBIN 12.6 g/dl (12.0-15.5); LYMPH # 0.9 10^3/uL (1.5-5.0); LYMPH % 14.4 % (24.0-44.0); MEAN CORPUSCULAR HEMOGLOBIN 28.1 pg (27.0-33.0); MEAN CORPUSCULAR HGB CONC 31.3 g/dl (32.0-36.5); MEAN CORPUSCULAR VOLUME 89.7 fl (80.0-96.0); MONO # 0.6 10^3/uL (0.0-0.8); MONO % 9.6 % (2.0-8.0); NEUTROPHILS # 4.9 10^3/uL (1.5-8.5); NEUTROPHILS % 74.6 % (36.0-66.0); PLATELET COUNT, AUTOMATED 102 10^3/uL (150-450); RED BLOOD COUNT 4.48 10^6/uL (4.00-5.40); WHITE BLOOD COUNT 6.5 10^3/uL (4.0-10.0)
[2022-12-23 15:49] LABS: LIPASE 34 U/L (12-53)
[2022-12-23 15:52] LABS: ALKALINE PHOSPHATASE 70 U/L (46-116); ALT/SGPT 9 U/L (7.0-40); AST/SGOT 11 U/L (<34); BILIRUBIN,DIRECT 0.4 MG/DL (<0.4); BILIRUBIN,TOTAL 1.2 MG/DL (0.3-1.2); BLOOD UREA NITROGEN 18 MG/DL (9-23); CALCIUM LEVEL 8.6 MG/DL (8.3-10.6); CARBON DIOXIDE LEVEL 28 MMOL/L (20-31); CHLORIDE LEVEL 101 MMOL/L (98-107); CREATININE FOR GFR 0.94 MG/DL (0.55-1.30); GLOMERULAR FILTRATION RATE > 60.0 (>39); GLUCOSE, FASTING 115 MG/DL (74-106); POTASSIUM SERUM 4.4 MMOL/L (3.5-5.1); SODIUM LEVEL 137 MMOL/L (136-145); TOTAL PROTEIN 7.1 G/DL (5.7-8.2)
[2022-12-23] MEDS ORDERED: KETOROLAC 30 MG/ML 1ML VIAL IV ONE (19:00)
[2022-12-23] MEDS ORDERED: ISOVUE-370 76% 100ML VIAL As Ordered ONE (19:01)
[2022-12-23 19:36] LABS: INR 1.18; PROTHROMBIN TIME 15.3 SECONDS (12.5-14.5)
[2022-12-23 19:37] LABS: PARTIAL THROMBOPLASTIN TIME 32.9 SECONDS (24.8-34.2)
[2022-12-23 19:51] LABS: CK-MB VALUE MASS < 1.0 NG/ML (<3.6)
[2022-12-23 19:54] LABS: CPK CREATINE PHOSPHOKINASE 47 U/L (34-145); MB/CK RELATIVE INDEX 2.12 (< OR =4)
[2022-12-23 21:46] VITALS: BP 102/54; O2SAT 95
== END 2022-12-23 21:48 | disposition home or self-care (01) ==
LOC: M ED 14:10
DX: R10.11 Right upper quadrant pain (principal); E11.40 Type 2 diabetes mellitus with diabetic neuropathy, unspecified; J44.9 Chronic obstructive pulmonary disease, unspecified; K21.9 Gastro-esophageal reflux disease without esophagitis; F41.9 Anxiety disorder, unspecified; F32.A Depression, unspecified; K74.60 Unspecified cirrhosis of liver; M50.20 Other cervical disc displacement, unspecified cervical region; Z91.011 Allergy to milk products; C21.0 Malignant neoplasm of anus, unspecified; Z87.891 Personal history of nicotine dependence; D61.818 Other pancytopenia; Z79.899 Other long term (current) drug therapy; Z79.84 Long term (current) use of oral hypoglycemic drugs; Z79.51 Long term (current) use of inhaled steroids
CPT/HCPCS: 74177; 80048; 80076; 82550; 82553; 83690; 84484; 85025; 85610; 85730; 93005; 96374; 99284; J1885; Q9967

== ENCOUNTER → 2023-01-07 | Outpatient (CLI) | payer MEDICARE, MEDICAID ==
[~2023-01-07] MED LIST changes: +FURO40TA2 PO; +LIAL1.2T PO; +MESA50SU PR; +SPIR50TA4 PO
[2023-01-07 13:50] VITALS: TEMP 97
[2023-01-07 15:31] VITALS: BP 111/57; O2SAT 100
== END ==
LOC: M IRPRO 13:28
PROVIDERS: ATTEND Internal Medicine Gastroenterology
DX: R18.8 Other ascites (principal)

== ENCOUNTER → 2023-01-13 | Outpatient (REF) | payer MEDICARE, MEDICAID | LOC: M SFHCPLAZ 12:00 | PROVIDERS: ATTEND Family Medicine | DX: K72.10 Chronic hepatic failure without coma (principal); D50.0 Iron deficiency anemia secondary to blood loss (chronic) ==

== ENCOUNTER → 2023-01-21 | Outpatient (CLI) | payer MEDICARE, MEDICAID ==
[~2023-01-21] MED LIST changes: +LIDOCAINE 1% MDV 20ML VIAL As Ordered ONE
[2023-01-21 14:10] VITALS: BP 113/59; O2SAT 99
== END ==
LOC: M IRPRO 12:40
PROVIDERS: ATTEND Internal Medicine Gastroenterology
DX: R18.8 Other ascites (principal)

== ENCOUNTER → 2023-02-04 | Outpatient (CLI) | payer MEDICARE, MEDICAID ==
[~2023-02-04] MED LIST changes: -LIDOCAINE 1% MDV 20ML VIAL As Ordered ONE
[2023-02-04 13:29] VITALS: BP 121/66; TEMP 98; O2SAT 100
[2023-02-04 13:43] VITALS: BP 126/54; TEMP 98.1; O2SAT 100
[2023-02-04 13:48] VITALS: BP 120/66; TEMP 97.8; O2SAT 100
[2023-02-04 13:51] VITALS: BP 120/66; O2SAT 99
== END ==
LOC: M IRPRO 12:36
PROVIDERS: ATTEND Internal Medicine Gastroenterology
DX: R18.8 Other ascites (principal)
CPT/HCPCS: 49083; 96365; P9047

== ENCOUNTER 2023-02-17 13:30 | Outpatient (CLI) | payer MEDICARE, MEDICAID ==
[~2023-02-17] VITALS: Ht 161 cm; Wt 85.0 kg
[2023-02-17] MEDS ORDERED: ZOLEDRONIC ACID 5 MG in IV 1 EA IV ONE (13:40)
[2023-02-17 13:44] VITALS: BP 120/69; O2SAT 95
[2023-02-17 14:25] VITALS: BP 114/55; O2SAT 98
== END 2023-02-17 14:30 | disposition home or self-care (01) ==
LOC: M INFU 13:30
PROVIDERS: ATTEND Family Medicine
DX: M81.0 Age-related osteoporosis without current pathological fracture (principal); Z91.040 Latex allergy status
CPT/HCPCS: 96365; J3489

== ENCOUNTER → 2023-03-04 | Outpatient (CLI) | payer MEDICARE, MEDICAID ==
[2023-03-04 13:39] VITALS: BP 104/68; TEMP 97.6; O2SAT 99
[2023-03-04 13:57] VITALS: BP 100/61; TEMP 97.8; O2SAT 99
[2023-03-04 14:40] VITALS: BP 111/64; O2SAT 99
[2023-03-04 14:45] VITALS: BP 122/60; O2SAT 99
== END ==
LOC: M IRPRO 12:34
PROVIDERS: ATTEND Internal Medicine Gastroenterology
DX: R18.8 Other ascites (principal)
CPT/HCPCS: 49083; 96365; P9047

== ENCOUNTER → 2023-03-10 | Outpatient (CLI) | payer MEDICARE, MEDICAID ==
[2023-03-10 13:23] LABS: BASO % 0.4 % (0.0-1.0); EOS # 0.1 10^3/uL (0.0-0.5); EOS % 1.9 % (0.0-3.0); HEMATOCRIT 30.7 % (36.0-47.0); HEMOGLOBIN 9.5 g/dl (12.0-15.5); LYMPH # 0.5 10^3/uL (1.5-5.0); LYMPH % 11.3 % (24.0-44.0); MEAN CORPUSCULAR HEMOGLOBIN 27.2 pg (27.0-33.0); MEAN CORPUSCULAR HGB CONC 30.9 g/dl (32.0-36.5); MONO # 0.5 10^3/uL (0.0-0.8); MONO % 10.2 % (2.0-8.0); NEUTROPHILS # 3.6 10^3/uL (1.5-8.5); NEUTROPHILS % 75.8 % (36.0-66.0); PLATELET COUNT, AUTOMATED 111 10^3/uL (150-450); RED BLOOD COUNT 3.49 10^6/uL (4.00-5.40); WHITE BLOOD COUNT 4.8 10^3/uL (4.0-10.0)
[2023-03-10 13:30] LABS: ALBUMIN 2.8 G/DL (3.2-5.2); BILIRUBIN,TOTAL 0.6 MG/DL (0.3-1.2); CALCIUM LEVEL 8.5 MG/DL (8.3-10.6); CREATININE FOR GFR 1.21 MG/DL (0.55-1.30); GLOMERULAR FILTRATION RATE 46.1 (>39); MAGNESIUM LEVEL 1.8 MG/DL (1.8-2.4); POTASSIUM SERUM 4.7 MMOL/L (3.5-5.1); TOTAL PROTEIN 6.8 G/DL (5.7-8.2)
[2023-03-10 13:39] LABS: INR 1.25; PROTHROMBIN TIME 15.4 SECONDS (12.5-14.5)
[2023-03-10 13:40] LABS: PARTIAL THROMBOPLASTIN TIME 34.4 SECONDS (24.8-34.2)
== END ==
LOC: M PLALAB 09:54
PROVIDERS: ATTEND Family Medicine
DX: K72.10 Chronic hepatic failure without coma (principal); D50.0 Iron deficiency anemia secondary to blood loss (chronic)

== ENCOUNTER → 2023-03-24 | Outpatient (CLI) | payer MEDICARE, MEDICAID ==
[2023-03-24 12:50] VITALS: BP 110/66; TEMP 98; O2SAT 100
[2023-03-24 12:57] VITALS: BP 113/65; TEMP 97.6; O2SAT 100
[2023-03-24 13:01] VITALS: BP 105/60; TEMP 97.8; O2SAT 99
[2023-03-24 13:08] VITALS: BP 109/60; TEMP 97.8; O2SAT 99
[2023-03-24 13:12] VITALS: BP 104/51; O2SAT 99
== END ==
LOC: M IRPRO 12:16
PROVIDERS: ATTEND Internal Medicine Gastroenterology
DX: R18.8 Other ascites (principal)
CPT/HCPCS: 49083; 96365; P9047

== ENCOUNTER → 2023-03-28 | Outpatient (CLI) | payer MEDICARE, MEDICAID ==
[2023-03-28 15:59] LABS: BASO % 0.4 % (0.0-1.0); EOS # 0.1 10^3/uL (0.0-0.5); HEMATOCRIT 31.6 % (36.0-47.0); HEMATOCRIT 31.9 % (36.0-47.0); HEMOGLOBIN 9.7 g/dl (12.0-15.5); LYMPH # 0.7 10^3/uL (1.5-5.0); MEAN CORPUSCULAR HEMOGLOBIN 26.4 pg (27.0-33.0); MEAN CORPUSCULAR HGB CONC 30.7 g/dl (32.0-36.5); MEAN CORPUSCULAR VOLUME 86.1 fl (80.0-96.0); MONO # 0.5 10^3/uL (0.0-0.8); MONO % 10.1 % (2.0-8.0); NEUTROPHILS # 3.9 10^3/uL (1.5-8.5); NEUTROPHILS % 73.9 % (36.0-66.0); PLATELET COUNT, AUTOMATED 157 10^3/uL (150-450); RED BLOOD COUNT 3.67 10^6/uL (4.00-5.40); WHITE BLOOD COUNT 5.2 10^3/uL (4.0-10.0)
[2023-03-28 16:28] LABS: TOTAL IRON BINDING CAPACITY 207 UG/DL (250-425)
[2023-03-28 16:29] LABS: ALBUMIN 3.1 G/DL (3.2-5.2); ALKALINE PHOSPHATASE 66 U/L (46-116); ALT/SGPT < 9 U/L (7.0-40); AST/SGOT 13 U/L (<34); BILIRUBIN,TOTAL 0.5 MG/DL (0.3-1.2); BLOOD UREA NITROGEN 34 MG/DL (9-23); CALCIUM LEVEL 8.9 MG/DL (8.3-10.6); CARBON DIOXIDE LEVEL 26 MMOL/L (20-31); CHLORIDE LEVEL 101 MMOL/L (98-107); CREATININE FOR GFR 1.14 MG/DL (0.55-1.30); GLOMERULAR FILTRATION RATE 49.3 (>39); GLUCOSE, FASTING 111 MG/DL (74-106); IRON (FE) 26 UG/DL (50-170); PERCENT SATURATION 12.6 % (13.2-45.0); POTASSIUM SERUM 4.6 MMOL/L (3.5-5.1); SODIUM LEVEL 137 MMOL/L (136-145); TOTAL PROTEIN 7.3 G/DL (5.7-8.2)
[2023-03-28 16:33] LABS: VITAMIN B12 LEVEL 222 PG/ML (211-911)
== END ==
LOC: M PLALAB 12:56
PROVIDERS: ATTEND Family Medicine
DX: D50.0 Iron deficiency anemia secondary to blood loss (chronic) (principal)

== ENCOUNTER → 2023-03-28 | Outpatient (REF) | payer MEDICARE, MEDICAID | LOC: M SFHCPLAZ 17:22 | PROVIDERS: ATTEND Family Medicine | DX: D50.0 Iron deficiency anemia secondary to blood loss (chronic) (principal) ==

== ENCOUNTER → 2023-03-29 | Outpatient (CLI) | payer MEDICARE, MEDICAID | LOC: M PLAIMG 11:08 | PROVIDERS: ATTEND Internal Medicine Pulmonary Disease | DX: R91.8 Other nonspecific abnormal finding of lung field (principal) ==

== ENCOUNTER → 2023-04-07 | Outpatient (CLI) | payer MEDICARE, MEDICAID ==
[2023-04-07 14:01] VITALS: BP 102/60; TEMP 97.8; O2SAT 100
[2023-04-07 14:10] VITALS: BP 106/51; TEMP 97.9; O2SAT 100
[2023-04-07 14:19] VITALS: BP 100/60; TEMP 97.9; O2SAT 100
[2023-04-07 14:39] VITALS: BP 113/57; O2SAT 100
== END ==
LOC: M IRPRO 13:05
PROVIDERS: ATTEND Internal Medicine Gastroenterology
DX: R18.8 Other ascites (principal)
CPT/HCPCS: 49083; 96365; P9047

== ENCOUNTER 2023-04-08 10:31 | Outpatient (CLI) | payer MEDICARE, MEDICAID ==
[~2023-04-08 10:31] MED LIST changes: +ALBUTEROL SULFATE 2.5MG/0.5ML INH NEB SOLN INH PRN; +EPINEPHrine INJ 1 MG/ML 1ML AMP IM PRN; +diphenhydrAMINE 50MG/ML VIAL IV PRN; +methylPREDNISolone 125MG 2ML VIAL IV PRN
[2023-04-08 11:40] VITALS: BP 115/57; O2SAT 99
[2023-04-08] MEDS ORDERED: NS 1,000 ML IV SCH (11:50)
[2023-04-08] MEDS ORDERED: FERRIC CARBOXYMALTOSE INJ 750 MG in NS 250 ML (>50kg) IV ONE ×3 (11:50)
[2023-04-08 13:08] VITALS: BP 100/53; O2SAT 99
== END 2023-04-08 13:20 ==
LOC: M INFU 10:31
PROVIDERS: ATTEND Family Medicine
DX: D50.9 Iron deficiency anemia, unspecified (principal)
CPT/HCPCS: 96365; J1439

== ENCOUNTER → 2023-04-18 | Outpatient (CLI) | payer MEDICARE, MEDICAID ==
[~2023-04-18] MED LIST changes: -ALBUTEROL SULFATE 2.5MG/0.5ML INH NEB SOLN INH PRN; -EPINEPHrine INJ 1 MG/ML 1ML AMP IM PRN; -diphenhydrAMINE 50MG/ML VIAL IV PRN; -methylPREDNISolone 125MG 2ML VIAL IV PRN
[2023-04-18 13:15] VITALS: TEMP 98.3
[2023-04-18 14:29] VITALS: BP 103/80; O2SAT 100
[2023-04-18 14:37] VITALS: BP 118/65; O2SAT 100
[2023-04-18 14:46] VITALS: BP 116/58; O2SAT 100
[2023-04-18 14:56] VITALS: BP 121/61; O2SAT 100
== END ==
LOC: M IRPRO 13:05
PROVIDERS: ATTEND Internal Medicine Gastroenterology
DX: R18.8 Other ascites (principal)
CPT/HCPCS: 49083; 96365; P9047

== ENCOUNTER → 2023-05-06 | Outpatient (CLI) | payer MEDICARE, MEDICAID ==
[2023-05-06 13:10] VITALS: BP 122/59; TEMP 97; O2SAT 100
[2023-05-06 13:17] VITALS: BP 105/53; TEMP 97.3; O2SAT 100
[2023-05-06 13:22] VITALS: BP 109/55; TEMP 98; O2SAT 100
[2023-05-06 13:25] VITALS: BP 115/57; TEMP 97.3; O2SAT 100
[2023-05-06 13:28] VITALS: BP 116/76; TEMP 97.2; O2SAT 100
== END ==
LOC: M IRPRO 11:44
PROVIDERS: ATTEND Internal Medicine Gastroenterology
DX: R18.8 Other ascites (principal)
CPT/HCPCS: 49083; 96365; P9047

== ENCOUNTER → 2023-05-20 | Outpatient (CLI) | payer MEDICARE, MEDICAID ==
[2023-05-20 10:02] VITALS: BP 117/65; TEMP 97.1; O2SAT 98
[2023-05-20 10:13] VITALS: BP 138/58; TEMP 97; O2SAT 100
[2023-05-20 10:25] VITALS: BP 118/56; O2SAT 100
== END ==
LOC: M IRPRO 08:35
PROVIDERS: ATTEND Internal Medicine Gastroenterology
DX: R18.8 Other ascites (principal)
CPT/HCPCS: 49083; 96365; P9047

== ENCOUNTER → 2023-06-03 | Outpatient (CLI) | payer OTHER, MEDICAID ==
[2023-06-03 15:13] VITALS: BP 99/57; O2SAT 100
[2023-06-03 15:35] VITALS: BP 106/58; O2SAT 98
[2023-06-03 16:00] VITALS: BP 120/50; TEMP 98.5; O2SAT 98
[2023-06-03 16:08] VITALS: BP 103/53; TEMP 98.6; O2SAT 99
[2023-06-03 16:09] VITALS: BP 103/53; O2SAT 99
== END ==
LOC: M IRPRO 14:17
PROVIDERS: ATTEND Internal Medicine Gastroenterology
DX: R18.8 Other ascites (principal)
CPT/HCPCS: 49083; 96365; P9047

== ENCOUNTER → 2023-06-08 | Outpatient (CLI) | payer OTHER, MEDICAID ==
[2023-06-08 12:53] LABS: BASO % 0.4 % (0.0-1.0); EOS # 0.1 10^3/uL (0.0-0.5); EOS % 2.4 % (0.0-3.0); HEMATOCRIT 31.4 % (36.0-47.0); HEMOGLOBIN 9.8 g/dl (12.0-15.5); LYMPH # 0.6 10^3/uL (1.5-5.0); MEAN CORPUSCULAR HGB CONC 31.2 g/dl (32.0-36.5); MEAN CORPUSCULAR VOLUME 89.7 fl (80.0-96.0); MONO # 0.5 10^3/uL (0.0-0.8); MONO % 11.5 % (2.0-8.0); NEUTROPHILS # 3.4 10^3/uL (1.5-8.5); NEUTROPHILS % 73.3 % (36.0-66.0); PLATELET COUNT, AUTOMATED 125 10^3/uL (150-450); WHITE BLOOD COUNT 4.7 10^3/uL (4.0-10.0)
[2023-06-08 13:19] LABS: HEMOGLOBIN A1c 5.3 % (4.0-6.0)
[2023-06-08 13:20] LABS: ALBUMIN 3.7 G/DL (3.2-5.2); BILIRUBIN,TOTAL 0.8 MG/DL (0.3-1.2); CALCIUM LEVEL 9.5 MG/DL (8.3-10.6); CREATININE FOR GFR 1.57 MG/DL (0.55-1.30); GLOMERULAR FILTRATION RATE 34.1 (>39); PERCENT SATURATION 15.3 % (13.2-45.0); POTASSIUM SERUM 4.6 MMOL/L (3.5-5.1); TOTAL PROTEIN 7.8 G/DL (5.7-8.2)
== END ==
LOC: M PLALAB 09:51
PROVIDERS: ATTEND Family Medicine
DX: E55.9 Vitamin D deficiency, unspecified (principal); K72.10 Chronic hepatic failure without coma; D50.0 Iron deficiency anemia secondary to blood loss (chronic); E11.65 Type 2 diabetes mellitus with hyperglycemia

== ENCOUNTER → 2023-06-17 | Outpatient (CLI) | payer OTHER, MEDICAID | LOC: M IRPRO 13:58 | PROVIDERS: ATTEND Internal Medicine Gastroenterology | DX: R18.8 Other ascites (principal) ==

== ENCOUNTER → 2023-06-20 | Outpatient (REF) | payer OTHER, MEDICAID | LOC: M SFHCPLAZ 11:04 | PROVIDERS: ATTEND Family Medicine | DX: Z53.9 Procedure and treatment not carried out, unspecified reason (principal); I50.32 Chronic diastolic (congestive) heart failure; D69.6 Thrombocytopenia, unspecified; K72.10 Chronic hepatic failure without coma ==

== ENCOUNTER → 2023-06-20 | Outpatient (CLI) | payer OTHER, MEDICAID ==
[2023-06-20 13:04] LABS: BASO % 0.4 % (0.0-1.0); EOS # 0.1 10^3/uL (0.0-0.5); EOS % 1.9 % (0.0-3.0); HEMATOCRIT 31.8 % (36.0-47.0); HEMOGLOBIN 9.8 g/dl (12.0-15.5); LYMPH # 0.6 10^3/uL (1.5-5.0); LYMPH % 11.9 % (24.0-44.0); MEAN CORPUSCULAR HEMOGLOBIN 28.2 pg (27.0-33.0); MEAN CORPUSCULAR HGB CONC 30.8 g/dl (32.0-36.5); MEAN CORPUSCULAR VOLUME 91.4 fl (80.0-96.0); MONO # 0.4 10^3/uL (0.0-0.8); MONO % 9.3 % (2.0-8.0); NEUTROPHILS # 3.6 10^3/uL (1.5-8.5); NEUTROPHILS % 76.1 % (36.0-66.0); PLATELET COUNT, AUTOMATED 110 10^3/uL (150-450); RED BLOOD COUNT 3.48 10^6/uL (4.00-5.40); WHITE BLOOD COUNT 4.7 10^3/uL (4.0-10.0)
[2023-06-20 13:21] LABS: INR 1.22; PROTHROMBIN TIME 15.1 SECONDS (12.5-14.5)
[2023-06-20 13:29] LABS: ALBUMIN 3.5 G/DL (3.2-5.2); BILIRUBIN,TOTAL 0.5 MG/DL (0.3-1.2); CALCIUM LEVEL 9.5 MG/DL (8.3-10.6); CHOLESTEROL RISK RATIO 3.71 (<5); CREATININE FOR GFR 1.19 MG/DL (0.55-1.30); GLOMERULAR FILTRATION RATE 46.9 (>39); HDL CHOLESTEROL 32.3 MG/DL (>40); LDL CHOLESTEROL 67.5 MG/DL (<100); NON-HDL-C 87.7 MG/DL; POTASSIUM SERUM 4.7 MMOL/L (3.5-5.1); TOTAL PROTEIN 8.1 G/DL (5.7-8.2)
== END ==
LOC: M PLALAB 11:13
PROVIDERS: ATTEND Family Medicine
DX: I50.32 Chronic diastolic (congestive) heart failure (principal); D50.0 Iron deficiency anemia secondary to blood loss (chronic); K72.10 Chronic hepatic failure without coma; D69.6 Thrombocytopenia, unspecified; Z85.048 Personal history of other malignant neoplasm of rectum, rectosigmoid junction, and anus

== ENCOUNTER → 2023-07-01 | Outpatient (CLI) | payer OTHER, MEDICAID ==
[~2023-07-01] MED LIST changes: -ASPI-161 PO; +ASPI-615 PO
[2023-07-01 13:55] VITALS: BP 106/62; TEMP 97.4; O2SAT 100
[2023-07-01 14:37] VITALS: BP 108/52; O2SAT 100
[2023-07-01 14:44] VITALS: BP 110/56; O2SAT 99
== END ==
LOC: M IRPRO 12:52
PROVIDERS: ATTEND Internal Medicine Gastroenterology
DX: R18.8 Other ascites (principal)
CPT/HCPCS: 49083; 96365; P9047

== ENCOUNTER → 2023-07-15 | Outpatient (CLI) | payer OTHER, MEDICAID ==
[2023-07-15 09:50] VITALS: TEMP 97.8
[2023-07-15 10:09] VITALS: BP 106/57; O2SAT 100
[2023-07-15 10:17] VITALS: BP 112/74; O2SAT 99
[2023-07-15 10:23] VITALS: BP 114/66; O2SAT 100
[2023-07-15 10:31] VITALS: BP 123/57; O2SAT 100
[2023-07-15 10:55] VITALS: BP 129/65; O2SAT 94
== END ==
LOC: M IRPRO 09:29
PROVIDERS: ATTEND Internal Medicine Gastroenterology
DX: R18.8 Other ascites (principal)
CPT/HCPCS: 49083; 96365; P9047

== ENCOUNTER → 2023-07-29 | Outpatient (CLI) | payer OTHER, MEDICAID ==
[2023-07-29 09:38] VITALS: TEMP 98.3
[2023-07-29 10:02] VITALS: BP 106/61; O2SAT 100
[2023-07-29 10:09] VITALS: BP 101/55; O2SAT 99
[2023-07-29 10:18] VITALS: BP 91/52; O2SAT 100
[2023-07-29 10:27] VITALS: BP 102/52; O2SAT 100
[2023-07-29 10:33] VITALS: BP 91/51; O2SAT 100
== END ==
LOC: M IRPRO 09:17
PROVIDERS: ATTEND Internal Medicine Gastroenterology
DX: R18.8 Other ascites (principal)
CPT/HCPCS: 49083; 96365; P9047

== ENCOUNTER → 2023-08-12 | Outpatient (CLI) | payer OTHER, MEDICAID ==
[2023-08-12] VITALS (7 sets, daily range): BP systolic 93–119; BP diastolic 50–64; TEMP 98; O2SAT 95–100
[~2023-08-12] MED LIST changes: -LIDO15SO RC; +LIDO15SO8 RC
== END ==
LOC: M IRPRO 09:15
PROVIDERS: ATTEND Internal Medicine Gastroenterology
DX: R18.8 Other ascites (principal)
CPT/HCPCS: 49083; 96365; P9047

== ENCOUNTER → 2023-08-26 | Outpatient (CLI) | payer OTHER, MEDICAID ==
[2023-08-26 09:50] VITALS: TEMP 97.9
[2023-08-26 10:09] VITALS: BP 125/61; O2SAT 100
[2023-08-26 10:20] VITALS: BP 111/61; O2SAT 100
[2023-08-26 10:33] VITALS: BP 137/63; O2SAT 100
[2023-08-26 10:45] VITALS: BP 112/56; O2SAT 100
== END ==
LOC: M IRPRO 09:39
PROVIDERS: ATTEND Internal Medicine Gastroenterology
DX: R18.8 Other ascites (principal)
CPT/HCPCS: 49083; 96365; P9047

== ENCOUNTER → 2023-09-09 | Outpatient (CLI) | payer MEDICAID, OTHER ==
[2023-09-09 11:31] VITALS: BP 113/64; TEMP 97.6; O2SAT 98
[2023-09-09 11:37] VITALS: BP 104/50; TEMP 98; O2SAT 100
[2023-09-09 11:44] VITALS: BP 103/59; TEMP 98; O2SAT 97
[2023-09-09 11:49] VITALS: BP 104/68; O2SAT 99
[2023-09-09 12:00] VITALS: BP 110/62; O2SAT 98
== END ==
LOC: M IRPRO 10:30
PROVIDERS: ATTEND Internal Medicine Gastroenterology
DX: R18.8 Other ascites (principal)
CPT/HCPCS: 49083; 96365; P9047

== ENCOUNTER → 2023-09-21 | Outpatient (CLI) | payer OTHER ==
[2023-09-21 18:07] LABS: BASO % 0.6 % (0.0-1.0); EOS # 0.1 10^3/uL (0.0-0.5); EOS % 1.7 % (0.0-3.0); HEMATOCRIT 29.7 % (36.0-47.0); HEMOGLOBIN 8.9 g/dl (12.0-15.5); LYMPH # 0.4 10^3/uL (1.5-5.0); LYMPH % 11.8 % (24.0-44.0); MEAN CORPUSCULAR VOLUME 86.8 fl (80.0-96.0); MONO # 0.3 10^3/uL (0.0-0.8); MONO % 9.5 % (2.0-8.0); NEUTROPHILS # 2.7 10^3/uL (1.5-8.5); NEUTROPHILS % 76.1 % (36.0-66.0); PLATELET COUNT, AUTOMATED 117 10^3/uL (150-450); RED BLOOD COUNT 3.42 10^6/uL (4.00-5.40); WHITE BLOOD COUNT 3.5 10^3/uL (4.0-10.0)
[2023-09-21 18:25] LABS: PTH INTACT 74.5 PG/ML (18.5-88.0)
[2023-09-21 18:30] LABS: FERRITIN 198.4 NG/ML (7.3-270.7)
== END ==
LOC: M PLALAB 15:20
PROVIDERS: ATTEND Family Medicine
DX: E11.9 Type 2 diabetes mellitus without complications (principal)

== ENCOUNTER → 2023-09-23 | Outpatient (CLI) | payer OTHER ==
[2023-09-23 10:29] VITALS: TEMP 97
[2023-09-23 10:56] VITALS: BP 105/55; O2SAT 100
[2023-09-23 11:05] VITALS: BP 107/60; O2SAT 100
[2023-09-23 11:20] VITALS: BP 112/58; O2SAT 100
[2023-09-23 11:26] VITALS: BP 112/58; O2SAT 100
[2023-09-23 11:31] VITALS: BP 105/55; O2SAT 100
== END ==
LOC: M IRPRO 10:22
PROVIDERS: ATTEND Internal Medicine Gastroenterology
DX: R18.8 Other ascites (principal)
CPT/HCPCS: 49083; 96365; P9047

== ENCOUNTER → 2023-10-07 | Outpatient (CLI) | payer OTHER ==
[2023-10-07 10:45] VITALS: TEMP 97.5
[2023-10-07 11:03] VITALS: BP 109/57; O2SAT 100
[2023-10-07 11:06] VITALS: BP 112/69; O2SAT 100
[2023-10-07 11:15] VITALS: BP 130/60; O2SAT 100
[2023-10-07 11:19] VITALS: BP 124/65; O2SAT 100
[2023-10-07 11:46] VITALS: BP 101/46; O2SAT 100
== END ==
LOC: M IRPRO 10:36
PROVIDERS: ATTEND Internal Medicine Gastroenterology
DX: R18.8 Other ascites (principal)
CPT/HCPCS: 49083; 96365; P9047

== ENCOUNTER 2023-10-21 06:25 | Outpatient (CLI) | payer OTHER ==
[~2023-10-21] VITALS: Ht 165.1 cm; Wt 70.4 kg
[2023-10-21 06:55] VITALS: BP 106/51; O2SAT 100
[2023-10-21] MEDS ORDERED: NS 1,000 ML IV SCH (07:00)
[2023-10-21] MEDS ORDERED: ALBUTEROL SULFATE 2.5MG/0.5ML INH NEB SOLN INH PRN (07:01)
[2023-10-21] MEDS ORDERED: methylPREDNISolone 125MG 2ML VIAL IV PRN (07:01)
[2023-10-21] MEDS ORDERED: EPINEPHrine INJ 1 MG/ML 1ML AMP IM PRN (07:01)
[2023-10-21] MEDS ORDERED: diphenhydrAMINE 50MG/ML VIAL IV PRN (07:01)
[2023-10-21] MEDS: IRON SUCROSE 500 MG in NS 250 ML OVER 4 HRS IV ONE (07:28)
[2023-10-21 08:30] VITALS: BP 99/50; O2SAT 100
[2023-10-21 09:00] VITALS: BP 100/55; O2SAT 97
[2023-10-21 09:30] VITALS: BP 111/60; O2SAT 97
[2023-10-21 10:30] VITALS: BP 103/62; O2SAT 96
== END 2023-10-21 11:30 | disposition home or self-care (01) ==
LOC: M INFU 06:25
PROVIDERS: ATTEND Family Medicine
DX: D50.9 Iron deficiency anemia, unspecified (principal)

== ENCOUNTER → 2023-10-21 | Outpatient (CLI) | payer OTHER ==
[2023-10-21 10:45] VITALS: BP 120/56; TEMP 97.7; O2SAT 100
== END ==
LOC: M IRPRO 06:28
PROVIDERS: ATTEND Internal Medicine Gastroenterology
DX: R18.8 Other ascites (principal); D50.9 Iron deficiency anemia, unspecified
CPT/HCPCS: 76705; J1756

== ENCOUNTER → 2023-10-25 | Outpatient (REF) | payer OTHER, MEDICAID | LOC: M SFHCPLAZ 17:28 | PROVIDERS: ATTEND Family Medicine | DX: D50.0 Iron deficiency anemia secondary to blood loss (chronic) (principal); I50.32 Chronic diastolic (congestive) heart failure; D69.6 Thrombocytopenia, unspecified; E53.8 Deficiency of other specified B group vitamins ==

== ENCOUNTER → 2023-11-04 | Outpatient (CLI) | payer OTHER | LOC: M IRPRO 09:23 | PROVIDERS: ATTEND Internal Medicine Gastroenterology | DX: R18.8 Other ascites (principal) ==

== ENCOUNTER → 2023-11-18 | Outpatient (CLI) | payer OTHER | LOC: M IRPRO 10:16 | PROVIDERS: ATTEND Internal Medicine Gastroenterology | DX: R18.8 Other ascites (principal) ==

== ENCOUNTER → 2023-12-05 | Outpatient (CLI) | payer OTHER ==
[2023-12-05 12:08] VITALS: BP 99/56; O2SAT 100
[2023-12-05 12:16] VITALS: BP 117/56; TEMP 98.1; O2SAT 100
[2023-12-05 12:19] VITALS: BP 116/56; O2SAT 100
== END ==
LOC: M IRPRO 11:05
PROVIDERS: ATTEND Internal Medicine Gastroenterology
DX: R18.8 Other ascites (principal)
CPT/HCPCS: 49083; 96365; P9047

== ENCOUNTER → 2023-12-16 | Outpatient (CLI) | payer OTHER | LOC: M IRPRO 13:45 | PROVIDERS: ATTEND Internal Medicine Gastroenterology | DX: R18.8 Other ascites (principal) ==

== ENCOUNTER → 2023-12-30 | Outpatient (CLI) | payer OTHER ==
[2023-12-30 10:19] LABS: BASO % 0.7 % (0.0-1.0); EOS # 0.1 10^3/uL (0.0-0.5); EOS % 3.5 % (0.0-3.0); HEMATOCRIT 28.4 % (36.0-47.0); HEMOGLOBIN 8.5 g/dl (12.0-15.5); LYMPH # 0.3 10^3/uL (1.5-5.0); LYMPH % 11.5 % (24.0-44.0); MEAN CORPUSCULAR HEMOGLOBIN 25.4 pg (27.0-33.0); MEAN CORPUSCULAR HGB CONC 29.9 g/dl (32.0-36.5); MEAN CORPUSCULAR VOLUME 84.8 fl (80.0-96.0); MONO # 0.2 10^3/uL (0.0-0.8); MONO % 7.7 % (2.0-8.0); NEUTROPHILS # 2.2 10^3/uL (1.5-8.5); NEUTROPHILS % 76.3 % (36.0-66.0); RED BLOOD COUNT 3.35 10^6/uL (4.00-5.40); WHITE BLOOD COUNT 2.9 10^3/uL (4.0-10.0)
[2023-12-30 10:37] LABS: ALBUMIN 3.5 G/DL (3.2-5.2); ALKALINE PHOSPHATASE 84 U/L (46-116); ALT/SGPT 15 U/L (7.0-40); AST/SGOT 16 U/L (<34); BILIRUBIN,TOTAL 0.5 MG/DL (0.3-1.2); BLOOD UREA NITROGEN 32 MG/DL (9-23); CARBON DIOXIDE LEVEL 27 MMOL/L (20-31); CHLORIDE LEVEL 104 MMOL/L (98-107); CREATININE FOR GFR 1.24 MG/DL (0.55-1.30); GLOMERULAR FILTRATION RATE 44.7 (>39); GLUCOSE, FASTING 107 MG/DL (74-106); INR 1.36; POTASSIUM SERUM 4.1 MMOL/L (3.5-5.1); PROTHROMBIN TIME 16.3 SECONDS (12.5-14.5); SODIUM LEVEL 135 MMOL/L (136-145); TOTAL PROTEIN 7.7 G/DL (5.7-8.2)
[2023-12-30 10:53] LABS: PLATELET COUNT, AUTOMATED 86 10^3/uL (150-450)
== END ==
LOC: M RAD 09:11
PROVIDERS: ATTEND Internal Medicine Gastroenterology
DX: K75.81 Nonalcoholic steatohepatitis (NASH) (principal); K74.60 Unspecified cirrhosis of liver; K76.6 Portal hypertension; K80.20 Calculus of gallbladder without cholecystitis without obstruction; N28.1 Cyst of kidney, acquired; R18.8 Other ascites; R16.1 Splenomegaly, not elsewhere classified

== ENCOUNTER → 2023-12-30 | Outpatient (CLI) | payer OTHER | LOC: M IRPRO 09:12 | PROVIDERS: ATTEND Internal Medicine Gastroenterology | DX: R18.8 Other ascites (principal); Z53.9 Procedure and treatment not carried out, unspecified reason ==

== ENCOUNTER → 2024-01-13 | Outpatient (CLI) | payer OTHER | LOC: M IRPRO 09:35 | PROVIDERS: ATTEND Internal Medicine Gastroenterology | DX: R18.8 Other ascites (principal) ==

== ENCOUNTER 2024-01-25 09:28 | Outpatient (CLI) | payer OTHER ==
[~2024-01-25 09:28] MED LIST changes: +ALBUTEROL SULFATE 2.5MG/0.5ML INH NEB SOLN INH PRN; +EPINEPHrine INJ 1 MG/ML 1ML AMP IM PRN; +diphenhydrAMINE 50MG/ML VIAL IV PRN; +methylPREDNISolone 125MG 2ML VIAL IV PRN
[2024-01-25 09:40] VITALS: BP 112/52; O2SAT 98
[2024-01-25] MEDS: FERRIC CARBOXYMALTOSE INJ 750 MG in NS 250 ML (>50kg) IV ONE (09:47)
[2024-01-25] MEDS ORDERED: NS 1,000 ML IV SCH (10:00)
[2024-01-25 10:49] VITALS: BP 107/54; O2SAT 99
== END 2024-01-25 11:00 ==
LOC: M INFU 09:28
PROVIDERS: ATTEND Family Medicine
DX: D50.9 Iron deficiency anemia, unspecified (principal); Z91.011 Allergy to milk products
CPT/HCPCS: 96365; J1439

== ENCOUNTER → 2024-02-13 | Outpatient (CLI) | payer OTHER ==
[~2024-02-13] MED LIST changes: -ALBUTEROL SULFATE 2.5MG/0.5ML INH NEB SOLN INH PRN; -EPINEPHrine INJ 1 MG/ML 1ML AMP IM PRN; -diphenhydrAMINE 50MG/ML VIAL IV PRN; -methylPREDNISolone 125MG 2ML VIAL IV PRN
== END ==
LOC: M IRPRO 12:56
PROVIDERS: ATTEND Internal Medicine Gastroenterology
DX: R18.8 Other ascites (principal)

== ENCOUNTER → 2024-02-28 | Outpatient (CLI) | payer OTHER ==
[2024-02-28 12:29] LABS: HEMATOCRIT 30.3 % (36.0-47.0)
[2024-02-28 12:30] LABS: BASO % 0.3 % (0.0-1.0); EOS # 0.1 10^3/uL (0.0-0.5); EOS % 3.7 % (0.0-3.0); HEMATOCRIT 30.5 % (36.0-47.0); HEMOGLOBIN 9.3 g/dl (12.0-15.5); LYMPH # 0.5 10^3/uL (1.5-5.0); MEAN CORPUSCULAR HEMOGLOBIN 27.2 pg (27.0-33.0); MEAN CORPUSCULAR HGB CONC 30.5 g/dl (32.0-36.5); MEAN CORPUSCULAR VOLUME 89.2 fl (80.0-96.0); MONO # 0.3 10^3/uL (0.0-0.8); NEUTROPHILS # 2.8 10^3/uL (1.5-8.5); NEUTROPHILS % 75.7 % (36.0-66.0); RED BLOOD COUNT 3.42 10^6/uL (4.00-5.40); WHITE BLOOD COUNT 3.7 10^3/uL (4.0-10.0)
[2024-02-28 12:34] LABS: PLATELET COUNT, AUTOMATED 91 10^3/uL (150-450)
[2024-02-28 12:41] LABS: INR 1.18; PARTIAL THROMBOPLASTIN TIME 33.8 SECONDS (24.8-34.2); PROTHROMBIN TIME 14.7 SECONDS (12.5-14.5)
[2024-02-28 13:32] LABS: ALBUMIN 3.4 G/DL (3.2-5.2); BILIRUBIN,TOTAL 0.5 MG/DL (0.3-1.2); CHOLESTEROL RISK RATIO 3.04 (<5); CREATININE FOR GFR 1.42 MG/DL (0.55-1.30); GLOMERULAR FILTRATION RATE 38.2 (>39); HDL CHOLESTEROL 44.4 MG/DL (>40); LDL CHOLESTEROL 76.2 MG/DL (<100); MAGNESIUM LEVEL 2.1 MG/DL (1.8-2.4); NON-HDL-C 90.6 MG/DL; POTASSIUM SERUM 4.3 MMOL/L (3.5-5.1); TOTAL PROTEIN 7.9 G/DL (5.7-8.2)
== END ==
LOC: M PLALAB 09:35
PROVIDERS: ATTEND Family Medicine
DX: D50.0 Iron deficiency anemia secondary to blood loss (chronic) (principal); I50.32 Chronic diastolic (congestive) heart failure; D69.6 Thrombocytopenia, unspecified; E53.8 Deficiency of other specified B group vitamins

== ENCOUNTER 2024-03-12 10:37 | Outpatient (CLI) | payer OTHER ==
[~2024-03-12] VITALS: Ht 165.1 cm; Wt 71.8 kg
[2024-03-12 11:10] VITALS: BP 114/54; O2SAT 98
[2024-03-12] MEDS: ZOLEDRONIC ACID 5 MG in IV 1 EA IV ONE (11:24)
[2024-03-12 11:55] VITALS: BP 102/53; O2SAT 100
== END 2024-03-12 12:15 ==
LOC: M INFU 10:37
PROVIDERS: ATTEND Family Medicine
DX: M81.8 Other osteoporosis without current pathological fracture (principal); Z91.011 Allergy to milk products
CPT/HCPCS: 96365; J3489

== ENCOUNTER → 2024-03-15 | Outpatient (CLI) | payer OTHER | LOC: M WHC 07:07 | PROVIDERS: ATTEND Family Medicine | DX: Z12.31 Encounter for screening mammogram for malignant neoplasm of breast (principal); D50.9 Iron deficiency anemia, unspecified ==

== ENCOUNTER → 2024-03-15 | Outpatient (CLI) | payer OTHER ==
[2024-03-15 10:50] LABS: ALBUMIN 3.6 G/DL (3.2-5.2); BILIRUBIN,TOTAL 0.5 MG/DL (0.3-1.2); CALCIUM LEVEL 8.5 MG/DL (8.3-10.6); CREATININE FOR GFR 1.5 MG/DL (0.55-1.30); GLOMERULAR FILTRATION RATE 35.8 (>39); PERCENT SATURATION 10.2 % (13.2-45.0); POTASSIUM SERUM 4.6 MMOL/L (3.5-5.1); TOTAL PROTEIN 8.1 G/DL (5.7-8.2)
[2024-03-15 10:51] LABS: BASO % 0.4 % (0.0-1.0); EOS # 0.1 10^3/uL (0.0-0.5); EOS % 2.4 % (0.0-3.0); HEMATOCRIT 31.7 % (36.0-47.0); HEMOGLOBIN 9.9 g/dl (12.0-15.5); LYMPH # 0.6 10^3/uL (1.5-5.0); LYMPH % 13.5 % (24.0-44.0); MEAN CORPUSCULAR HEMOGLOBIN 27.3 pg (27.0-33.0); MEAN CORPUSCULAR HGB CONC 31.2 g/dl (32.0-36.5); MEAN CORPUSCULAR VOLUME 87.6 fl (80.0-96.0); MONO # 0.4 10^3/uL (0.0-0.8); MONO % 8.6 % (2.0-8.0); NEUTROPHILS # 3.5 10^3/uL (1.5-8.5); NEUTROPHILS % 74.9 % (36.0-66.0); PLATELET COUNT, AUTOMATED 101 10^3/uL (150-450); RED BLOOD COUNT 3.62 10^6/uL (4.00-5.40); WHITE BLOOD COUNT 4.7 10^3/uL (4.0-10.0)
== END ==
LOC: M PLALAB 08:03
PROVIDERS: ATTEND Family Medicine
DX: D50.0 Iron deficiency anemia secondary to blood loss (chronic) (principal); I50.32 Chronic diastolic (congestive) heart failure; E53.8 Deficiency of other specified B group vitamins

== ENCOUNTER 2024-03-26 14:20 | Outpatient (CLI) | payer MEDICARE, OTHER ==
[~2024-03-26] VITALS: Ht 165.1 cm; Wt 71.4 kg
[2024-03-26 14:20] VITALS: BP 120/57; O2SAT 98
[~2024-03-26 14:20] MED LIST changes: +ALBUTEROL SULFATE 2.5MG/0.5ML INH NEB SOLN INH PRN; +EPINEPHrine INJ 1 MG/ML 1ML AMP IM PRN; +diphenhydrAMINE 50MG/ML VIAL IV PRN; +methylPREDNISolone 125MG 2ML VIAL IV PRN
[2024-03-26] MEDS: FERRIC CARBOXYMALTOSE 750 MG (VIAL MATE) IN 100ML NS IV ONE (14:27)
[2024-03-26] MEDS ORDERED: NS 1,000 ML IV SCH (14:30)
[2024-03-26 15:00] VITALS: BP 99/54; O2SAT 92
== END 2024-03-26 15:10 ==
LOC: M INFU 14:20
PROVIDERS: ATTEND Family Medicine
DX: D50.0 Iron deficiency anemia secondary to blood loss (chronic) (principal); Z91.011 Allergy to milk products
CPT/HCPCS: 96365; J1439

== ENCOUNTER → 2024-04-05 | Outpatient (CLI) | payer OTHER, MEDICAID ==
[~2024-04-05] MED LIST changes: -ALBUTEROL SULFATE 2.5MG/0.5ML INH NEB SOLN INH PRN; -EPINEPHrine INJ 1 MG/ML 1ML AMP IM PRN; +NYST1POW3 TOP; -NYST1POW9 TOP; -diphenhydrAMINE 50MG/ML VIAL IV PRN; -methylPREDNISolone 125MG 2ML VIAL IV PRN
== END ==
LOC: M PLAIMG 14:06
PROVIDERS: ATTEND Internal Medicine Pulmonary Disease
DX: R91.8 Other nonspecific abnormal finding of lung field (principal)

== ENCOUNTER 2024-05-09 09:56 | Day surgery (SDC) | payer OTHER ==
[~2024-05-09] VITALS: Ht 165.1 cm; Wt 70.4 kg
[~2024-05-09 09:56] MED LIST changes: +BEVE1AER INH; +FERR325T3 PO
[2024-05-09] MEDS ORDERED: LIDOCAINE 2% 100MG/5ML SDV (FOR ANES.) As Ordered ONE (11:17)
[2024-05-09] MEDS ORDERED: propofoL 200 MG/20 ML VIAL As Ordered ONE (11:17)
[2024-05-09 11:50] VITALS: TEMP 97
[2024-05-09 12:20] VITALS: BP 114/56; O2SAT 100
== END 2024-05-09 12:48 | disposition home or self-care (01) ==
LOC: M OPP 09:56
PROVIDERS: ATTEND Internal Medicine Gastroenterology
DX: Z85.038 Personal history of other malignant neoplasm of large intestine (principal); K64.0 First degree hemorrhoids; K62.89 Other specified diseases of anus and rectum; K62.7 Radiation proctitis; K74.60 Unspecified cirrhosis of liver; I85.10 Secondary esophageal varices without bleeding; E11.9 Type 2 diabetes mellitus without complications; R12 Heartburn; I71.40 Abdominal aortic aneurysm, without rupture, unspecified; Z87.891 Personal history of nicotine dependence; Z79.899 Other long term (current) drug therapy; Z91.011 Allergy to milk products
CPT/HCPCS: 43244; G0105

== ENCOUNTER → 2024-06-19 | Outpatient (REF) | payer MEDICARE ==
[2024-06-19 14:21] LABS: ALBUMIN 3.2 G/DL (3.2-5.2); BILIRUBIN,TOTAL 0.8 MG/DL (0.3-1.2); CALCIUM LEVEL 9.1 MG/DL (8.3-10.6); CREATININE FOR GFR 1.47 MG/DL (0.55-1.30); GLOMERULAR FILTRATION RATE 36.7 (>39); PERCENT SATURATION 3.7 % (13.2-45.0); TOTAL PROTEIN 7.8 G/DL (5.7-8.2)
[2024-06-19 14:24] LABS: FERRITIN 103.7 NG/ML (7.3-270.7)
[2024-06-19 14:27] LABS: INR 1.31; PARTIAL THROMBOPLASTIN TIME 41.1 SECONDS (24.8-34.2); PROTHROMBIN TIME 16.6 SECONDS (12.5-14.5)
== END ==
LOC: M SFHCPLAZ 10:45
PROVIDERS: ATTEND Family Medicine
DX: I50.32 Chronic diastolic (congestive) heart failure (principal); E53.8 Deficiency of other specified B group vitamins; D50.0 Iron deficiency anemia secondary to blood loss (chronic)

== ENCOUNTER 2024-07-05 09:19 | Outpatient (CLI) | payer MEDICARE ==
[~2024-07-05] VITALS: Ht 167.6 cm; Wt 69.5 kg
[~2024-07-05 09:19] MED LIST changes: +ALBUTEROL SULFATE 2.5MG/0.5ML INH NEB SOLN INH PRN; +EPINEPHrine INJ 1 MG/ML 1ML AMP IM PRN; +diphenhydrAMINE 50MG/ML VIAL IV PRN; +methylPREDNISolone 125MG 2ML VIAL IV PRN
[2024-07-05 09:30] VITALS: BP 103/66; O2SAT 98
[2024-07-05] MEDS: IRON SUCROSE 500 MG in NS 250 ML OVER 4 HRS IV ONE (10:13)
[2024-07-05 11:00] VITALS: BP 117/71; O2SAT 99
[2024-07-05 12:00] VITALS: BP 120/60; O2SAT 98
[2024-07-05 14:30] VITALS: BP 127/59; O2SAT 97
== END 2024-07-05 14:30 | disposition home or self-care (01) ==
LOC: M INFU 09:19
PROVIDERS: ATTEND Family Medicine
DX: D50.0 Iron deficiency anemia secondary to blood loss (chronic) (principal); Z91.011 Allergy to milk products
CPT/HCPCS: 96365; 96366; J1756

== ENCOUNTER 2024-07-12 09:00 | Outpatient (CLI) | payer MEDICARE ==
[~2024-07-12] VITALS: Ht 165.1 cm; Wt 70.5 kg
[2024-07-12 09:00] VITALS: BP 110/57; O2SAT 100
[2024-07-12] MEDS: IRON SUCROSE 500 MG in NS 250 ML OVER 4 HRS IV ONE (09:39)
[2024-07-12 10:45] VITALS: BP 118/69; O2SAT 100
[2024-07-12 11:45] VITALS: BP 120/71; O2SAT 100
[2024-07-12 12:45] VITALS: BP 130/81; O2SAT 100
== END 2024-07-12 14:20 ==
LOC: M INFU 09:00
PROVIDERS: ATTEND Family Medicine
DX: D50.0 Iron deficiency anemia secondary to blood loss (chronic) (principal); Z91.011 Allergy to milk products
CPT/HCPCS: 96365; 96366; J1756

== ENCOUNTER → 2024-08-10 | Outpatient (CLI) | payer MEDICARE ==
[~2024-08-10] MED LIST changes: -ALBUTEROL SULFATE 2.5MG/0.5ML INH NEB SOLN INH PRN; -EPINEPHrine INJ 1 MG/ML 1ML AMP IM PRN; -diphenhydrAMINE 50MG/ML VIAL IV PRN; -methylPREDNISolone 125MG 2ML VIAL IV PRN
[2024-08-10 19:03] LABS: ALBUMIN 3.7 G/DL (3.2-5.2); BILIRUBIN,TOTAL 0.5 MG/DL (0.3-1.2); CALCIUM LEVEL 9.5 MG/DL (8.3-10.6); CREATININE FOR GFR 1.25 MG/DL (0.55-1.30); GLOMERULAR FILTRATION RATE 44.2 (>39); POTASSIUM SERUM 4.8 MMOL/L (3.5-5.1); PTH INTACT 74.4 PG/ML (18.5-88.0)
[2024-08-10 19:06] LABS: BASO % 0.5 % (0.0-1.0); EOS # 0.1 10^3/uL (0.0-0.5); EOS % 2.2 % (0.0-3.0); HEMATOCRIT 32.1 % (36.0-47.0); LYMPH # 0.6 10^3/uL (1.5-5.0); LYMPH % 13.4 % (24.0-44.0); MEAN CORPUSCULAR HEMOGLOBIN 27.6 pg (27.0-33.0); MEAN CORPUSCULAR HGB CONC 31.2 g/dl (32.0-36.5); MEAN CORPUSCULAR VOLUME 88.7 fl (80.0-96.0); MONO # 0.4 10^3/uL (0.0-0.8); MONO % 8.6 % (2.0-8.0); NEUTROPHILS # 3.1 10^3/uL (1.5-8.5); NEUTROPHILS % 75.1 % (36.0-66.0); RED BLOOD COUNT 3.62 10^6/uL (4.00-5.40); WHITE BLOOD COUNT 4.2 10^3/uL (4.0-10.0)
[2024-08-10 19:07] LABS: FERRITIN 145.7 NG/ML (7.3-270.7); TOTAL 25(OH) VITAMIN D 46.8 NG/ML (20.0-100.0)
[2024-08-10 19:21] LABS: PLATELET COUNT, AUTOMATED 80 10^3/uL (150-450)
== END ==
LOC: M PLALAB 14:31
PROVIDERS: ATTEND Family Medicine
DX: I50.32 Chronic diastolic (congestive) heart failure (principal); D50.0 Iron deficiency anemia secondary to blood loss (chronic); E55.9 Vitamin D deficiency, unspecified

== ENCOUNTER → 2024-08-13 | Outpatient (CLI) | payer MEDICARE | LOC: M RAD 08:21 | PROVIDERS: ATTEND Family Medicine | DX: K72.10 Chronic hepatic failure without coma (principal) ==

== ENCOUNTER 2024-10-16 21:19 | Emergency (ER) | payer MEDICARE ==
[~2024-10-16] VITALS: Ht 165.1 cm; Wt 70.5 kg
[~2024-10-16 21:19] MED LIST changes: -PRED50TA PO; +PRED50TA57 PO
[2024-10-16 22:58] LABS: BASO % 0.3 % (0.0-1.0); EOS # 0.2 10^3/uL (0.0-0.5); EOS % 4.7 % (0.0-3.0); HEMATOCRIT 30.2 % (36.0-47.0); HEMOGLOBIN 9.4 g/dl (12.0-15.5); LYMPH # 0.4 10^3/uL (1.5-5.0); LYMPH % 13.2 % (24.0-44.0); MEAN CORPUSCULAR HEMOGLOBIN 27.6 pg (27.0-33.0); MEAN CORPUSCULAR HGB CONC 31.1 g/dl (32.0-36.5); MEAN CORPUSCULAR VOLUME 88.6 fl (80.0-96.0); MONO # 0.4 10^3/uL (0.0-0.8); NEUTROPHILS # 2.2 10^3/uL (1.5-8.5); NEUTROPHILS % 69.5 % (36.0-66.0); RED BLOOD COUNT 3.41 10^6/uL (4.00-5.40); WHITE BLOOD COUNT 3.2 10^3/uL (4.0-10.0)
[2024-10-16 22:59] LABS: PLATELET COUNT, AUTOMATED 78 10^3/uL (150-450)
[2024-10-16 23:08] LABS: INR 1.14; PARTIAL THROMBOPLASTIN TIME 32.3 SECONDS (24.8-34.2); PROTHROMBIN TIME 14.9 SECONDS (12.5-14.5)
[2024-10-16 23:24] LABS: ALBUMIN 3.9 G/DL (3.2-5.2); BILIRUBIN,DIRECT 0.2 MG/DL (<0.4); BILIRUBIN,TOTAL 0.5 MG/DL (0.3-1.2); CALCIUM LEVEL 9.4 MG/DL (8.3-10.6); CREATININE FOR GFR 1.33 MG/DL (0.55-1.30); POTASSIUM SERUM 4.3 MMOL/L (3.5-5.1); TOTAL PROTEIN 7.9 G/DL (5.7-8.2)
[2024-10-17 00:31] VITALS: BP 109/54; TEMP 97.4; O2SAT 100
== END 2024-10-17 00:53 | disposition home or self-care (01) ==
LOC: M ED 21:19
DX: S93.402A Sprain of unspecified ligament of left ankle, initial encounter (principal); D64.9 Anemia, unspecified; K74.69 Other cirrhosis of liver; Y92.019 Unspecified place in single-family (private) house as the place of occurrence of the external cause; Y93.9 Activity, unspecified; Y99.9 Unspecified external cause status; Z79.51 Long term (current) use of inhaled steroids; Z79.899 Other long term (current) drug therapy

== ENCOUNTER → 2024-10-18 | Outpatient (CLI) | payer MEDICARE ==
[2024-10-18 13:17] LABS: INR 1.15; PARTIAL THROMBOPLASTIN TIME 31.5 SECONDS (24.8-34.2)
[2024-10-18 13:23] LABS: ALBUMIN 3.7 G/DL (3.2-5.2); ALKALINE PHOSPHATASE 74 U/L (35-104); ALT/SGPT 17 U/L (7.0-40); AST/SGOT 18 U/L (<34); BILIRUBIN,TOTAL 0.4 MG/DL (0.3-1.2); BLOOD UREA NITROGEN 39 MG/DL (9-23); CALCIUM LEVEL 9.2 MG/DL (8.3-10.6); CARBON DIOXIDE LEVEL 26 MMOL/L (20-31); CHLORIDE LEVEL 102 MMOL/L (98-107); CREATININE FOR GFR 1.22 MG/DL (0.55-1.30); GLOMERULAR FILTRATION RATE 45.4 (>39); GLUCOSE, FASTING 106 MG/DL (74-106); SODIUM LEVEL 136 MMOL/L (136-145); TOTAL PROTEIN 7.8 G/DL (5.7-8.2)
[2024-10-18 13:25] LABS: VITAMIN B12 LEVEL 1123 PG/ML (211-911)
[2024-10-18 13:32] LABS: BASO % 0.6 % (0.0-1.0); EOS # 0.1 10^3/uL (0.0-0.5); EOS % 2.5 % (0.0-3.0); HEMATOCRIT 30.4 % (36.0-47.0); HEMOGLOBIN 9.4 g/dl (12.0-15.5); LYMPH # 0.4 10^3/uL (1.5-5.0); LYMPH % 12.3 % (24.0-44.0); MEAN CORPUSCULAR HEMOGLOBIN 27.6 pg (27.0-33.0); MEAN CORPUSCULAR HGB CONC 30.9 g/dl (32.0-36.5); MEAN CORPUSCULAR VOLUME 89.4 fl (80.0-96.0); MONO # 0.2 10^3/uL (0.0-0.8); MONO % 7.1 % (2.0-8.0); NEUTROPHILS # 2.5 10^3/uL (1.5-8.5); NEUTROPHILS % 77.2 % (36.0-66.0); WHITE BLOOD COUNT 3.3 10^3/uL (4.0-10.0)
[2024-10-18 13:33] LABS: PLATELET COUNT, AUTOMATED 69 10^3/uL (150-450)
== END ==
LOC: M PLALAB 11:37
PROVIDERS: ATTEND Family Medicine
DX: E11.9 Type 2 diabetes mellitus without complications (principal); E53.8 Deficiency of other specified B group vitamins; D69.6 Thrombocytopenia, unspecified

== ENCOUNTER → 2025-03-01 | Outpatient (CLI) | payer MEDICARE, MEDICAID ==
[2025-03-01 10:35] LABS: BASO # 0.0 10^3/uL (0.0-0.2); BASO % 0.4 % (0.0-1.0); EOS # 0.1 10^3/uL (0.0-0.5); EOS % 4.2 % (0.0-3.0); LYMPH # 0.4 10^3/uL (1.5-5.0); LYMPH % 16.5 % (24.0-44.0); MONO # 0.3 10^3/uL (0.0-0.8); MONO % 12.7 % (2.0-8.0); NEUTROPHILS # 1.6 10^3/uL (1.5-8.5); NEUTROPHILS % 65.8 % (36.0-66.0)
[2025-03-01 10:36] LABS: PLATELET COUNT, AUTOMATED 81 10^3/uL (150-450)
[2025-03-01 10:40] LABS: INR 1.18
[2025-03-01 10:58] LABS: ALT/SGPT 17.0 U/L (7.0-40); AST/SGOT 23.0 U/L (<34); CALCIUM LEVEL 9.2 MG/DL (8.3-10.6); CARBON DIOXIDE LEVEL 28.0 MMOL/L (20-31); CHLORIDE LEVEL 104.0 MMOL/L (98-107); CREATININE FOR GFR 1.36 MG/DL (0.55-1.30); GLOMERULAR FILTRATION RATE 39.9 (>39); IRON (FE) 27.0 UG/DL (50-170); PERCENT SATURATION 10.3 % (13.2-45.0); POTASSIUM SERUM 4.5 MMOL/L (3.5-5.1); SODIUM LEVEL 141.0 MMOL/L (136-145)
== END ==
LOC: M PLALAB 09:19
PROVIDERS: ATTEND Family Medicine
DX: I50.32 Chronic diastolic (congestive) heart failure (principal); E53.8 Deficiency of other specified B group vitamins; D60.0 Chronic acquired pure red cell aplasia

== ENCOUNTER → 2025-03-20 | Outpatient (REF) | payer MEDICARE, MEDICAID ==
[~2025-03-20] MED LIST changes: +APRI0.37 PO; +K2 P1TAB PO
== END ==
LOC: M LAB REF 10:23
PROVIDERS: ATTEND Internal Medicine Gastroenterology
DX: Z85.038 Personal history of other malignant neoplasm of large intestine (principal); R19.7 Diarrhea, unspecified; A04.0 Enteropathogenic Escherichia coli infection

== ENCOUNTER 2025-03-21 08:16 | Outpatient (CLI) | payer MEDICARE, MEDICAID ==
[~2025-03-21] VITALS: Ht 167.6 cm; Wt 71.8 kg
[~2025-03-21 08:16] MED LIST changes: +ALBUTEROL SULFATE 2.5 MG/0.5 ML INH CONCENTRATE NEB SOLN INH PRN; +EPINEPHrine INJ 1 MG/ML 1ML AMP IM PRN; +diphenhydrAMINE 50 MG/ML VIAL IV PRN
[2025-03-21 09:13] VITALS: BP 91/60; O2SAT 100
[2025-03-21] MEDS: IRON SUCROSE 500 MG in NS 250 ML OVER 4 HRS IV ONE (09:23)
[2025-03-21 11:45] VITALS: BP 107/50; O2SAT 95
[2025-03-21 13:29] VITALS: BP 93/46; O2SAT 100
== END 2025-03-21 13:30 | disposition home or self-care (01) ==
LOC: M INFU 08:16
PROVIDERS: ATTEND Family Medicine
DX: D50.9 Iron deficiency anemia, unspecified (principal); Z91.0110 Allergy to milk products, unspecified
CPT/HCPCS: 96365; 96366; J1756

== ENCOUNTER → 2025-03-25 | Day surgery (SDC) | payer MEDICARE, MEDICAID ==
[~2025-03-25] VITALS: Ht 165.1 cm; Wt 70.1 kg
[~2025-03-25] MED LIST changes: -ALBUTEROL SULFATE 2.5 MG/0.5 ML INH CONCENTRATE NEB SOLN INH PRN; -EPINEPHrine INJ 1 MG/ML 1ML AMP IM PRN; +LIDOCAINE 2% 100 MG/5 ML SDV (FOR ANES.) As Ordered ONE; -diphenhydrAMINE 50 MG/ML VIAL IV PRN
[2025-03-25 12:56] VITALS: TEMP 98
[2025-03-25 13:30] VITALS: BP 123/58; O2SAT 95
== END | disposition home or self-care (01) ==
LOC: M OPP 11:07
PROVIDERS: ATTEND Internal Medicine Gastroenterology
DX: Z12.11 Encounter for screening for malignant neoplasm of colon (principal); K62.4 Stenosis of anus and rectum; K62.7 Radiation proctitis; Z85.048 Personal history of other malignant neoplasm of rectum, rectosigmoid junction, and anus; K57.30 Diverticulosis of large intestine without perforation or abscess without bleeding; I85.10 Secondary esophageal varices without bleeding; K74.60 Unspecified cirrhosis of liver; Z91.02 Food additives allergy status; Z79.899 Other long term (current) drug therapy; J44.9 Chronic obstructive pulmonary disease, unspecified; Z87.891 Personal history of nicotine dependence
CPT/HCPCS: 43244; 88305; G0105; J3010

== ENCOUNTER 2025-03-28 08:21 | Outpatient (CLI) | payer MEDICARE, MEDICAID ==
[~2025-03-28] VITALS: Ht 165.1 cm; Wt 70.5 kg
[~2025-03-28 08:21] MED LIST changes: +ALBUTEROL SULFATE 2.5 MG/0.5 ML INH CONCENTRATE NEB SOLN INH PRN; +EPINEPHrine INJ 1 MG/ML 1ML AMP IM PRN; +IRON SUCROSE 500 MG in NS 250 ML OVER 4 HRS IV ONE; -LIDOCAINE 2% 100 MG/5 ML SDV (FOR ANES.) As Ordered ONE; +diphenhydrAMINE 50 MG/ML VIAL IV PRN
[2025-03-28 08:30] VITALS: BP 118/58; O2SAT 99
[2025-03-28] MEDS: IRON SUCROSE 500 MG in NS 250 ML IV ONE (09:26)
[2025-03-28 11:00] VITALS: BP 104/54; O2SAT 98
[2025-03-28 12:00] VITALS: BP 110/55; O2SAT 97
[2025-03-28 14:40] VITALS: BP 106/77; O2SAT 99
== END 2025-03-28 13:40 ==
LOC: M INFU 08:21
PROVIDERS: ATTEND Family Medicine
DX: D50.9 Iron deficiency anemia, unspecified (principal); Z91.0110 Allergy to milk products, unspecified
CPT/HCPCS: 96365; 96366; J1756

== ENCOUNTER → 2025-04-05 | Outpatient (REF) | payer MEDICARE, MEDICAID ==
[~2025-04-05] MED LIST changes: -ALBUTEROL SULFATE 2.5 MG/0.5 ML INH CONCENTRATE NEB SOLN INH PRN; -EPINEPHrine INJ 1 MG/ML 1ML AMP IM PRN; -IRON SUCROSE 500 MG in NS 250 ML OVER 4 HRS IV ONE; -diphenhydrAMINE 50 MG/ML VIAL IV PRN
== END ==
LOC: M LAB REF 16:41
PROVIDERS: ATTEND Internal Medicine Gastroenterology
DX: R19.7 Diarrhea, unspecified (principal)

== ENCOUNTER → 2025-04-11 | Outpatient (CLI) | payer MEDICARE, MEDICAID | LOC: M WHC 10:15 | PROVIDERS: ATTEND Family Medicine | DX: Z12.31 Encounter for screening mammogram for malignant neoplasm of breast (principal); M81.0 Age-related osteoporosis without current pathological fracture; R92.333 Mammographic heterogeneous density, bilateral breasts; M85.89 Other specified disorders of bone density and structure, multiple sites; R91.8 Other nonspecific abnormal finding of lung field ==

== ENCOUNTER → 2025-04-11 | Outpatient (CLI) | payer MEDICARE, MEDICAID | LOC: M PLAIMG 10:17 | PROVIDERS: ATTEND Internal Medicine Pulmonary Disease | DX: R91.8 Other nonspecific abnormal finding of lung field (principal) ==

== ENCOUNTER → 2025-05-29 | Outpatient (CLI) | payer MEDICARE, MEDICAID ==
[2025-05-29 10:14] LABS: BASO # 0.0 10^3/uL (0.0-0.2); BASO % 0.4 % (0.0-1.0); EOS # 0.2 10^3/uL (0.0-0.5); EOS % 5.5 % (0.0-3.0); LYMPH # 0.5 10^3/uL (1.5-5.0); LYMPH % 16.5 % (24.0-44.0); MONO # 0.3 10^3/uL (0.0-0.8); MONO % 9.9 % (2.0-8.0); NEUTROPHILS # 1.8 10^3/uL (1.5-8.5); NEUTROPHILS % 67.7 % (36.0-66.0)
[2025-05-29 10:18] LABS: PLATELET COUNT, AUTOMATED 64 10^3/uL (150-450)
[2025-05-29 10:30] LABS: INR 1.18
[2025-05-29 10:37] LABS: ALT/SGPT 15 U/L (7.0-40); AST/SGOT 16 U/L (<34); CALCIUM LEVEL 9.4 MG/DL (8.3-10.6); CARBON DIOXIDE LEVEL 29 MMOL/L (20-31); CHLORIDE LEVEL 104 MMOL/L (98-107); CHOLESTEROL LEVEL 123 MG/DL (<200); CHOLESTEROL RISK RATIO 3.94 (<5); CREATININE FOR GFR 1.32 MG/DL (0.55-1.30); GLOMERULAR FILTRATION RATE 41.3 (>39); LDL CHOLESTEROL 71.2 MG/DL (<100); NON-HDL-C 91.8 MG/DL; POTASSIUM SERUM 4.3 MMOL/L (3.5-5.1); SODIUM LEVEL 140 MMOL/L (136-145); TRIGLYCERIDES LEVEL 103 MG/DL (<150)
[2025-05-29 10:38] LABS: IRON (FE) 35 UG/DL (50-170); PERCENT SATURATION 13.4 % (13.2-45.0)
[2025-05-29 10:39] LABS: PTH INTACT 75.1 PG/ML (18.5-88.0)
[2025-05-29 10:44] LABS: TOTAL 25(OH) VITAMIN D 59.2 NG/ML (20.0-100.0)
[2025-05-29 11:51] LABS: FREE T4 1.09 NG/DL (0.89-1.76)
== END ==
LOC: M PLALAB 09:06
PROVIDERS: ATTEND Family Medicine
DX: I50.32 Chronic diastolic (congestive) heart failure (principal); D50.0 Iron deficiency anemia secondary to blood loss (chronic); E53.8 Deficiency of other specified B group vitamins; E55.9 Vitamin D deficiency, unspecified; K72.10 Chronic hepatic failure without coma; E78.2 Mixed hyperlipidemia